=== PATIENT | male | born 1955 | race Caucasian/White ===

== ENCOUNTER → 2024-02-12 12:03 | Outpatient (REF) | payer OTHER, MEDICARE, BC, SELFPAY ==
[2024-02-12 12:56] LABS: % Basophils 0.8 % (0-2); % Eosinophils 2.4 % (0-6); % Immature Granulocytes 0.3 % (0-0.5); % Lymphocytes 12.2 % (20.5-51.1); % Monocytes 11.5 % (1.7-9.3); % Neutrophils 72.8 % (42.2-75.2); Absolute Basophils 0.1 10^3/uL (0-0.2); Absolute Eosinophils 0.1 10^3/uL (0-0.7); Absolute Lymphocytes 0.7 10^3/uL (1.2-3.4); Absolute Monocytes 0.7 10^3/uL (0.1-0.6); Absolute Neutrophils 4.3 10^3/uL (1.4-6.5); Hematocrit 28.6 % (39.0-52.0); Mean Corp Hgb Conc. 31.5 g/dL (33.0-37.0); Mean Corpuscular Hgb 27.3 pg (27.0-31.0); Mean Corpuscular Volume 86.7 fL (80.0-94.0); Nucleated Red Blood Cells % 0 % (-); Platelet Count 157 10^3/uL (130-400); White Blood Cell Count 5.9 10^3/uL (4.8-10.8)
[2024-02-12 13:00] LABS: ALT (SGPT) 13 U/L (0-50); AST (SGOT) 15 U/L (17-59); Albumin 3.6 g/dl (3.5-5.0); Alkaline Phosphatase 99 U/L (38-126); Blood Urea Nitrogen 29 mg/dl (9-20); Calcium 8.8 mg/dl (8.4-10.2); Carbon Dioxide 26 mmol/L (22-30); Chloride 101 mmol/L (98-107); Glucose 108 mg/dl (70-99); HDL Cholesterol 45 mg/dl; LDL Cholesterol, Calculated 86 mg/dl; Potassium 3.2 mmol/L (3.5-5.1); Sodium 135 mmol/L (135-145); Total Bilirubin 0.5 mg/dl (0.2-1.3); Total Cholesterol 145 mg/dl (50-199); Total Protein 5.8 g/dl (6.3-8.2); Triglyceride 70 mg/dl (10-149); Very Low Density Lipoprotein 14 mg/dl (0-30); eGFR 24.74
[2024-02-12 13:30] LABS: TSH 8.57 uIU/ml (0.47-4.68)
[2024-02-12 13:52] LABS: Glycohemoglobin (HgbA1c) 6.7 % (4.0-5.6)
== END ==
LOC: OLABN 12:03
PROVIDERS: ATTENDING PHYSICIAN Student in an Organized Health Care Education/Training Program
DX: I48.20 Chronic atrial fibrillation, unspecified (principal); N17.9 Acute kidney failure, unspecified; E03.9 Hypothyroidism, unspecified; E78.5 Hyperlipidemia, unspecified; E10.22 Type 1 diabetes mellitus with diabetic chronic kidney disease
CPT/HCPCS: 36415; 80053; 80061; 83036; 83735; 84443; 85025

== ENCOUNTER → 2024-02-19 00:30 | Outpatient (REF) | payer OTHER, MEDICARE, BC, SELFPAY ==
[2024-02-19 10:03] LABS: % Basophils 0.6 % (0-2); % Eosinophils 1.3 % (0-6); % Immature Granulocytes 0.3 % (0-0.5); % Lymphocytes 11.8 % (20.5-51.1); % Monocytes 8.1 % (1.7-9.3); % Neutrophils 77.9 % (42.2-75.2); Absolute Eosinophils 0.1 10^3/uL (0-0.7); Absolute Lymphocytes 0.7 10^3/uL (1.2-3.4); Absolute Monocytes 0.5 10^3/uL (0.1-0.6); Absolute Neutrophils 4.8 10^3/uL (1.4-6.5); Hematocrit 27.8 % (39.0-52.0); Hemoglobin 8.9 g/dL (13.0-18.0); Mean Corpuscular Hgb 27.1 pg (27.0-31.0); Mean Corpuscular Volume 84.5 fL (80.0-94.0); Mean Platelet Volume 11.2 fL (7.4-10.4); Nucleated Red Blood Cells % 0 % (-); Platelet Count 148 10^3/uL (130-400); Red Blood Cell Count 3.29 10^6/uL (4.70-6.10); Red Cell Dist. Width 16.7 % (11.5-14.5); White Blood Cell Count 6.2 10^3/uL (4.8-10.8)
[2024-02-19 10:38] LABS: Blood Urea Nitrogen 45 mg/dl (9-20); Calcium 9.2 mg/dl (8.4-10.2); Carbon Dioxide 28 mmol/L (22-30); Chloride 101 mmol/L (98-107); Glucose 109 mg/dl (70-99); Potassium 4.4 mmol/L (3.5-5.1); Sodium 136 mmol/L (135-145); eGFR 19.44
[2024-02-19 10:48] LABS: Urine Albumin 1+ (Neg - Trace); Urine Bilirubin Negative (Negative); Urine Character Clear (Clear); Urine Color Yellow; Urine Glucose Negative (Negative); Urine Ketone Negative (Negative); Urine Leukocyte Negative (Negative); Urine Nitrite Negative (Negative); Urine Occult Blood Negative (Negative); Urine Urobilinogen Negative (Neg - 1+); Urine pH 6.5 (5.0-9.0)
[2024-02-19 10:56] LABS: Free T4 2.13 ng/dl (0.78-2.19)
[2024-02-19 11:10] LABS: TSH 3.37 uIU/ml (0.47-4.68)
[2024-02-19 11:40] LABS: Urine Squamous Cell 0-2 /LPF (Few)
[2024-02-19 11:42] LABS: Urine Amorphous Seen; Urine Red Blood Cell 0-2 /HPF (0-2); Urine White Cell 0-2 /HPF (0-5)
== END ==
LOC: OLABN 00:30
PROVIDERS: ATTENDING PHYSICIAN Student in an Organized Health Care Education/Training Program
DX: N32.9 Bladder disorder, unspecified (principal); R82.90 Unspecified abnormal findings in urine; I48.19 Other persistent atrial fibrillation; E03.9 Hypothyroidism, unspecified; N18.4 Chronic kidney disease, stage 4 (severe)
CPT/HCPCS: 36415; 80048; 81003; 81015; 84439; 84443; 85025; 87077; 87086; 87186

== ENCOUNTER → 2024-02-25 12:16 | Outpatient (REF) | payer OTHER, MEDICARE, BC, SELFPAY ==
[2024-02-25 13:04] LABS: % Basophils 0.5 % (0-2); % Immature Granulocytes 0.3 % (0-0.5); % Lymphocytes 12.4 % (20.5-51.1); % Monocytes 10.2 % (1.7-9.3); % Neutrophils 74.6 % (42.2-75.2); Absolute Eosinophils 0.1 10^3/uL (0-0.7); Absolute Lymphocytes 0.8 10^3/uL (1.2-3.4); Absolute Monocytes 0.7 10^3/uL (0.1-0.6); Absolute Neutrophils 4.8 10^3/uL (1.4-6.5); Hemoglobin 9.2 g/dL (13.0-18.0); Mean Corp Hgb Conc. 31.7 g/dL (33.0-37.0); Mean Platelet Volume 11.5 fL (7.4-10.4); Nucleated Red Blood Cells % 0 % (-); Platelet Count 175 10^3/uL (130-400); Red Blood Cell Count 3.41 10^6/uL (4.70-6.10); Red Cell Dist. Width 17.2 % (11.5-14.5); White Blood Cell Count 6.4 10^3/uL (4.8-10.8)
[2024-02-25 13:34] LABS: Blood Urea Nitrogen 41 mg/dl (9-20); Carbon Dioxide 27 mmol/L (22-30); Chloride 99 mmol/L (98-107); Glucose 98 mg/dl (70-99); Potassium 4.6 mmol/L (3.5-5.1); Sodium 133 mmol/L (135-145)
[2024-02-25 13:44] LABS: NT-proBNP 15000 pg/ml
== END ==
LOC: OLABN 12:16
PROVIDERS: ATTENDING PHYSICIAN Student in an Organized Health Care Education/Training Program
DX: I48.19 Other persistent atrial fibrillation (principal); N18.4 Chronic kidney disease, stage 4 (severe); R60.0 Localized edema
CPT/HCPCS: 36415; 80048; 83880; 85025

== ENCOUNTER → 2024-03-12 10:37 | Outpatient (REF) | payer OTHER, MEDICARE, BC, SELFPAY ==
[2024-03-12 11:49] LABS: Blood Urea Nitrogen 47 mg/dl (9-20); Calcium 8.9 mg/dl (8.4-10.2); Carbon Dioxide 29 mmol/L (22-30); Chloride 100 mmol/L (98-107); Glucose 111 mg/dl (70-99); Potassium 4.3 mmol/L (3.5-5.1); Sodium 139 mmol/L (135-145); eGFR 20.18
== END ==
LOC: OLABN 10:37
PROVIDERS: ATTENDING PHYSICIAN Student in an Organized Health Care Education/Training Program
DX: N18.9 Chronic kidney disease, unspecified (principal)
CPT/HCPCS: 36415; 80048

== ENCOUNTER → 2024-03-19 09:59 | Outpatient (REF) | payer OTHER, MEDICARE, BC, SELFPAY ==
[2024-03-19 10:52] LABS: % Basophils 0.7 % (0-2); % Eosinophils 1.5 % (0-6); % Immature Granulocytes 0.3 % (0-0.5); % Lymphocytes 12.2 % (20.5-51.1); % Monocytes 8.4 % (1.7-9.3); % Neutrophils 76.9 % (42.2-75.2); Absolute Eosinophils 0.1 10^3/uL (0-0.7); Absolute Lymphocytes 0.7 10^3/uL (1.2-3.4); Absolute Monocytes 0.5 10^3/uL (0.1-0.6); Absolute Neutrophils 4.7 10^3/uL (1.4-6.5); Hematocrit 27.3 % (39.0-52.0); Hemoglobin 8.4 g/dL (13.0-18.0); Mean Corp Hgb Conc. 30.8 g/dL (33.0-37.0); Mean Corpuscular Hgb 26.5 pg (27.0-31.0); Mean Corpuscular Volume 86.1 fL (80.0-94.0); Mean Platelet Volume 11.3 fL (7.4-10.4); Nucleated Red Blood Cells % 0 % (-); Platelet Count 146 10^3/uL (130-400); Red Blood Cell Count 3.17 10^6/uL (4.70-6.10); Red Cell Dist. Width 16.5 % (11.5-14.5); White Blood Cell Count 6.1 10^3/uL (4.8-10.8)
[2024-03-19 11:30] LABS: ALT (SGPT) 14 U/L (0-50); AST (SGOT) 15 U/L (17-59); Albumin 3.6 g/dl (3.5-5.0); Alkaline Phosphatase 87 U/L (38-126); Blood Urea Nitrogen 49 mg/dl (9-20); Calcium 9.2 mg/dl (8.4-10.2); Carbon Dioxide 30 mmol/L (22-30); Chloride 99 mmol/L (98-107); Glucose 99 mg/dl (70-99); Magnesium 2.3 mg/dl (1.6-2.3); Potassium 4.2 mmol/L (3.5-5.1); Sodium 138 mmol/L (135-145); Total Protein 5.8 g/dl (6.3-8.2); eGFR 20.18
== END ==
LOC: OLABN 09:59
PROVIDERS: ATTENDING PHYSICIAN Student in an Organized Health Care Education/Training Program
DX: N18.4 Chronic kidney disease, stage 4 (severe) (principal)
CPT/HCPCS: 36415; 80053; 83735; 85025

== ENCOUNTER 2024-03-24 15:28 | Inpatient (IN) | payer MEDICARE, BC, SELFPAY ==
[2024-03-24 12:58] VITALS: BP 178/100
[2024-03-24 13:07] VITALS: BMI 36.5
[2024-03-24 13:24] LABS: % Eosinophils 1.1 % (0-6); % Immature Granulocytes 0.5 % (0-0.5); % Lymphocytes 8.4 % (20.5-51.1); % Monocytes 8.7 % (1.7-9.3); % Neutrophils 80.3 % (42.2-75.2); Absolute Basophils 0.1 10^3/uL (0-0.2); Absolute Eosinophils 0.1 10^3/uL (0-0.7); Absolute Lymphocytes 0.5 10^3/uL (1.2-3.4); Absolute Monocytes 0.5 10^3/uL (0.1-0.6); Hematocrit 28.2 % (39.0-52.0); Hemoglobin 8.8 g/dL (13.0-18.0); Mean Corp Hgb Conc. 31.2 g/dL (33.0-37.0); Mean Corpuscular Hgb 26.2 pg (27.0-31.0); Mean Corpuscular Volume 83.9 fL (80.0-94.0); Mean Platelet Volume 11.1 fL (7.4-10.4); Nucleated Red Blood Cells % 0 % (-); Platelet Count 154 10^3/uL (130-400); Red Blood Cell Count 3.36 10^6/uL (4.70-6.10); Red Cell Dist. Width 16.5 % (11.5-14.5); White Blood Cell Count 6.2 10^3/uL (4.8-10.8)
[2024-03-24 13:51] LABS: NT-proBNP 20700 pg/ml; Troponin I 0.013 ng/ml
[2024-03-24 14:00] VITALS: BP 162/92
[2024-03-24 14:01] LABS: ALT (SGPT) 13 U/L (0-50); AST (SGOT) 16 U/L (17-59); Albumin 3.9 g/dl (3.5-5.0); Alkaline Phosphatase 98 U/L (38-126); Blood Urea Nitrogen 45 mg/dl (9-20); Calcium 9.1 mg/dl (8.4-10.2); Carbon Dioxide 28 mmol/L (22-30); Chloride 99 mmol/L (98-107); Estimated Creatinine Clearance 34 ml/min; Glucose 127 mg/dl (70-99); Sodium 138 mmol/L (135-145); Total Protein 6.2 g/dl (6.3-8.2)
--- NOTE | 2024-03-24 14:07 | ED.GENMED ---
History of Present Illness
General
Chief Complaint: Breathing Problem
Source: patient, family, ambulance crew and [facility]p
Exam Limitations: none
Time Seen by Provider: 03/24/24 13:11
Nursing documentation reviewed up to this point in time: agreed with
History of Present Illness
History of Present Illness:
68-year-old male past medical history of A-fib currently with pacemaker also taking Eliquis, CHF diabetes hypothyroidism COPD presenting to the emergency department today with concerns of worsening shortness of breath over the past few days. Pulse
ox 86% with EMS on arrival to his nursing facility. Denies any specific chest pain has had increased swelling to his legs. Does take his Bumex.
Review of Systems
Review of Systems
Allergies reviewed?: Yes
All Other Systems: ROS reviewed and negative except as documented in HPI and ROS
Phy Exam
Physical Exam
Physical Exam:
GENERAL: Alert , in no apparent distress
EYE: pupils equal and reactive
NECK: Supple, no significant adenopathy.
ENT: o/p clr, mmm.
CARDIAC: Regular rate and rhythm .
LUNGS: Rales rhonchi diffusely
ABDOMEN: Soft, without focal tenderness, no r/g, no cvat
NEUROLOGICAL: Alert and oriented, no focal neuro deficits
SKIN: Warm and dry, skin intact.
MUSCULOSKELETAL: No edema, well perfused.
PSYCH: Normal and appropriate interaction.
Scores
Heart Failure Risk
Heart Failure Risk Score: Not Applicable
Course
Orders/Labs/Results
Orders:
Orders
03/24/24 12:57
Electrocardiogram (*1) Urgent
Reason for Study: Shortness of Breath
EKG- Treatment ONCE
03/24/24 13:11
CMP [Comprehensive Metabolic Panel] Urgent
03/24/24 13:12
BNP [NT-proBNP] Urgent
Complete Blood Count/With Diff Urgent
Troponin I Urgent
Chest X-ray Portable [CR Chest Portable - 1 View] Urgent
Comment:
Reason For Exam: hypoxemia sob
Reason Study Needs to be Portable: Patient Unstable
03/24/24 13:57
COVID-19 Antigen Urgent
Source: Nasal Swab
03/24/24 14:03
Bumetanide [Bumex] 2 mg IV NOW STA
Abnormal Lab Results
03/24/24 03/24/24
13:11 13:12
RBC 3.36 L 10^6/uL
(4.70-6.10)
Hgb 8.8 L g/dL
(13.0-18.0)
Hct 28.2 L %
(39.0-52.0)
MCH 26.2 L pg
(27.0-31.0)
MCHC 31.2 L g/dL
(33.0-37.0)
RDW 16.5 H %
(11.5-14.5)
MPV 11.1 H fL
(7.4-10.4)
Absolute Lymphs (auto) 0.5 L 10^3/uL
(1.2-3.4)
Neutrophils % 80.3 H %
(42.2-75.2)
Lymphocytes % 8.4 L %
(20.5-51.1)
BUN 45 H mg/dl
(9-20)
Creatinine 3.0 H mg/dL
(0.7-1.3)
Glucose 127 H mg/dl
(70-99)
AST 16 L U/L
(17-59)
Total Protein 6.2 L g/dl
(6.3-8.2)
03/24/24 13:12
03/24/24 13:11
Vital Signs
Initial and Last Documented VS:
Initial Vital Signs
Temp Pulse Resp BP Pulse Ox
98.4 F 68 18 178/100 85
03/24/24 12:58 03/24/24 12:58 03/24/24 12:58 03/24/24 12:58 03/24/24 12:58
Last Documented Vital Signs
Temp Pulse Resp BP Pulse Ox
98.4 F 64 22 178/100 95
03/24/24 12:58 03/24/24 13:30 03/24/24 13:30 03/24/24 12:58 03/24/24 13:30
MDM/Problems Addressed
MDM/Problems Addressed:
68-year-old male presenting to the emergency department with worsening shortness of breath over the past few days. Patient with increased swelling weight gain and history of CHF. Has rales and rhonchi on lung examination significantly elevated BNP
of over 20,000 and a chest x-ray showing significant pulmonary edema. Symptoms likely consistent with CHF. Patient was given dose of Bumex otherwise stable here plan to admit for further monitoring and assessment.
*Critical Care Note
Total Time (30-74mins, 75-104mins- exclusive of procedures): Not Applicable
ED Attending Note
-
Portions of this chart may have been created with voice recognition software.� Occasional wrong word or��sound alike� substitutions may have occurred due to the inherent limitations of voice recognition software.
Discharge Plan
Departure
Patient Disposition: Admit
Date of Disposition: 03/24/24
Time of Disposition: 14:23
Admit to: Telemetry
Admit to doctor: Wenceslao
Presentation/result/management discussed w/ accepting MD/DO: Hospitalist
Patient with high blood pressure during this ER visit?: No
Condition: Good
Covid-19: Not Applicable
Discharge Problem:
Acute exacerbation of CHF (congestive heart failure)
Prescriptions:
No Action
levothyroxine [Synthroid] 175 mcg Tablet
175 mcg PO DAILY
acetaminophen [Tylenol] 325 mg Tablet
650 mg PO Q4HPRN PRN (Reason: mild pain)
ipratropium-albuterol [DuoNeb] 0.5 mg-3 mg(2.5 mg base)/3 mL Solution For Nebulization
3 ml INHALATION R Q6HPRN PRN (Reason: sob)
bumetanide [Bumex] 2 mg Tablet
2 mg PO BID
trazodone 50 mg Tablet
50 mg PO HS
metoprolol tartrate [Lopressor] 100 mg Tablet
100 mg PO BID
amiodarone 200 mg Tablet
200 mg PO DAILY
isosorbide mononitrate [Imdur] 30 mg Tablet Extended Release 24 Hr
30 mg PO Q12H
dextromethorphan-guaifenesin [Tussin DM] 10-100 mg/5 mL Syrup
10 ml PO Q4HPRN PRN (Reason: cough)
aspirin 81 mg Tablet,Delayed Release (Dr/Ec)
81 mg PO DAILY
potassium chloride 20 mEq Tablet,Er Particles/Crystals
40 meq PO DAILY
sodium bicarbonate 650 mg Tablet
650 mg PO BID
bisacodyl [Dulcolax (bisacodyl)] 10 mg Suppository
10 mg ID [id number] PRN (Reason: if no bm aftr mom)
hydralazine 50 mg Tablet
50 mg PO BID
ezetimibe [Zetia] 10 mg Tablet
10 mg PO QPM
calcium carbonate-vitamin D3 [Calcium 500 + D] 500 mg-10 mcg (400 unit) Tablet
1 tab PO BID
lactulose 20 gram/30 mL Solution
20 g PO HSPRN PRN (Reason: constipation)
Eliquis 5 mg Tablet
5 mg PO BID
Referrals:
Mj Peck DO [Family Provider] -
Interventions
Interventions:
*Risk Screen - Suicide Last Done: 03/24/24 13:08
*General Assessment Last Done: 03/24/24 13:08
*Neglect/Abuse Screening Last Done: 03/24/24 13:08
ED- Fall Risk Assessment Last Done: 03/24/24 13:17
*ED COVID-19 Vaccine History Last Done: 03/24/24 13:08
ED- Cardiac Assessment Last Done: 03/24/24 13:16
ED- Pulmonary Assessment Last Done: 03/24/24 13:16
Discharge Date and Time
Print Language: AMERICAN
--- NOTE | 2024-03-24 14:14 | HPS.HSE ---
Addendum entered and electronically signed by Carlos Alberto Rodriguez MD 03/24/24 17:30:
Cardiology started bumex drip and ordered ABG. Low threshold for BIPAP.
Original Note:
Family Physician
-
Family Physician: Mj Peck DO
Chief Complaint
-
sob
History of Present Illness
68-year-old male past medical history of A-fib currently with pacemaker also taking Eliquis, CHF diabetes hypothyroidism COPD, chronic hypoxic respiratory failure uses 3-4liters at home presenting to the emergency department today with concerns of
worsening shortness of breath over the past few days. sob worse with exertion, stated orthopnea. stated 4-5weight gain i past 4-5 days. he was also noted worsening LE edema. stated runny nose congestion, cough for denied chest pain. today his pulse
ox drop to 86 on 3l. denied MENDOZA, dizzy or syncopal episode. denied abdominal pain,n,v,d. denied dysuria or hematuria.
noted elevated BNP. received Bumex in ER. admitting for further management.
Medical History
Past Medical History
Past Medical History: Reports Other
Additional Past Medical History:
COPD A-fib
Thrombophilia
Peripheral vascular disease
hypothyroidism
Diabetic nephropathy
Congestive heart failure
Lymphedema
Past Surgical History: Reports Other
Additional Past Surgical History:
Right shoulder surgery
Meniscus repair
Social History
Tobacco: Former Smoker
Alcohol: Former
Drug: None
Personal: Single
Living: Assisted Living
Family History
Family History: Not pertinent
Allergies / Home Medications
Allergies reflects when Allergies were last updated in [facility].
Home Medications with original date entered in [facility]
Allergy/Medication List:
Allergies
Allergy/AdvReac Type Severity Reaction Status Date / Time
cinnamon Allergy Anaphylaxis Verified 03/24/24 12:56
Home Medications
acetaminophen 325 mg tablet (Tylenol) 650 mg PO Q4HPRN PRN mild pain 03/24/24
amiodarone 200 mg tablet 200 mg PO DAILY 03/24/24
apixaban 5 mg tablet (Eliquis) 5 mg PO BID 03/24/24
aspirin 81 mg tablet,delayed release 81 mg PO DAILY 03/24/24
bisacodyl 10 mg rectal suppository (Dulcolax (bisacodyl)) 10 mg HI [id number] PRN if no bm aftr mom 03/24/24
bumetanide 2 mg tablet 2 mg PO BID 03/24/24
calcium carbonate 500 mg-vitamin D3 10 mcg (400 unit) tablet (Calcium 500 + D) 1 tab PO BID 03/24/24
dextromethorphan-guaifenesin 10 mg-100 mg/5 mL oral syrup (Tussin DM) 10 ml PO Q4HPRN PRN cough 03/24/24
ezetimibe 10 mg tablet (Zetia) 10 mg PO QPM 03/24/24
hydralazine 50 mg tablet 50 mg PO BID 03/24/24
ipratropium 0.5 mg-albuterol 3 mg (2.5 mg base)/3 mL nebulization soln 3 ml inhalation R Q6HPRN PRN sob 03/24/24
isosorbide mononitrate 30 mg tablet,extended release 24 hr 30 mg PO Q12H 03/24/24
lactulose 20 gram/30 mL oral solution 20 g PO HSPRN PRN constipation 03/24/24
levothyroxine 175 mcg tablet (Synthroid) 175 mcg PO DAILY 03/24/24
metoprolol tartrate 100 mg tablet (Lopressor) 100 mg PO BID 03/24/24
potassium chloride 20 mEq tablet,extended release(part/cryst) 40 meq PO DAILY 03/24/24
sodium bicarbonate 650 mg tablet 650 mg PO BID 03/24/24
trazodone 50 mg tablet 50 mg PO HS 03/24/24
Review of Systems
-
Constitutional: Reports Weight Gain
EENT: Reports Runny Nose
Respiratory: Reports No Symptoms, Cough and Trouble Breathing
Cardiac: Reports No Symptoms
Abdomen/GI: Reports No Symptoms
: Reports No Symptoms
Musculoskeletal: Reports Edema (b/l Le edema)
Skin: Reports Other (b/l LE wounds)
Neurological: Reports No Symptoms
Endocrine: Reports No Symptoms
Hematologic/Lymphatic: Reports No Symptoms
Psych: Reports No Symptoms
Physical Exam
Vital Signs
Vital Signs
Temp Pulse Resp BP Pulse Ox
98.4 F 64 22 178/100 95
03/24/24 12:58 03/24/24 13:30 03/24/24 13:30 03/24/24 12:58 03/24/24 13:30
Physical Exam
General: Well Developed, Well Nourished and No Apparent Distress
HEENT: NormoCephalic, Moist mucous membranes and Atraumatic
Respiratory: Crackles
Cardiac: S1/S2 and Regular Rhythm; No Murmur or Rub
GI: Soft, Non Tender, Non Distended and Normal Bowel Sounds; No Organomegaly
Rectal: Deferred by Provider
Musculoskeletal: No Clubbing, No Cyanosis and Other (b/l Le edema)
Skin: Rash and Other (b/l Le wound)
Neuro: AO x 3 and Nonfocal/grossly intact
Psych: Calm
Laboratory Results
-
03/24/24 13:12
03/24/24 13:11
Laboratory Results
Total Bilirubin 1.0 mg/dl (0.2-1.3) 03/24/24 13:11
AST 16 U/L (17-59) L 03/24/24 13:11
ALT 13 U/L (0-50) 03/24/24 13:11
Alkaline Phosphatase 98 U/L (38-126) 03/24/24 13:11
Troponin I 0.013 ng/ml 03/24/24 13:12
Data Reviewed
-
Lab Data: Labs Reviewed by me
Impression/Plan
-
# Acute on chronic hypoxic respiratory failure likely from CHF exacerbation
-BNP
-Chest x-ray pending
-Patient requiring 3 L of nasal cannula
-baseline uses 3-4l
-IV Bumex 3mg iv bid
-Continue supplemental oxygen to keep sat greater than 92
-Wean as tolerated
-Strict SELVIN
-Daily weight
-Fluid restriction
-Imdur continued
-Echo
-Cardiology consult
# Anemia of chronic disease
-Hemoglobin stable at 8.8 no active bleeding
-Continue to monitor
# Chronic kidney disease iv/Dm nephropathy
-Creatinine 3.0
-ctm
#hxt of lymphedema/LE wound
-wound care consulted
# Paroxysmal A-fib
#ICD/pacemaker
-EKG with paced rhythm
-Amiodarone and Eliquis continued
-Metoprolol continued
# Hypothyroidism
-Levothyroxine continued
#history of coronary artery disease
-History of coronary artery bypass graft
-Aspirin continued
# Hyperlipidemia
-Statin continued
# Essential hypertension
-Hydralazine continued with hold parameters
# History of COPD/chronic respiratory insufficiency
-Patient not in acute exacerbation
-Patient uses 3 to 4 L at baseline
-Continue supplemental oxygen to keep sat greater than 92
-Wean as tolerated
-Albuterol continued
# DVT prophylaxis
- Eliquis
# CODE STATUS full code
-
[2024-03-24 14:22] LABS: COVID-19 Antigen Negative (Negative)
[2024-03-24] MEDS: BUMEX 2 MG IV (14:26)
--- NOTE | 2024-03-24 14:59 | W.PN.UPDATE ---
Update Note
Progress Note Update
This is an addendum to the H&P written by Monet Carbajal on 03/24/2024. Patient seen and examined independently with [employer]. 68-year-old male past medical history of paroxysmal atrial fibrillation with pacemaker/ICD, CAD status post CABG, CHF, CKD 4, type 2
diabetes, hypothyroidism, COPD, hypoxemic respiratory failure on 3 L at baseline here for shortness of breath, orthopnea, intermittent chest pressure, increased lower extremity edema, weight gain 5 pounds, consistent with CHF exacerbation.
Cardiac BNP of 20,000. EKG shows ventricular paced rhythm. Chest x-ray showing widespread pulmonary edema. Will give 4 mg IV Bumex, followed by 3 mg IV twice daily, check echo, cardiology consulted. Patient follows cardiology at [facility]. Renal function is at baseline. Continue to monitor with diuresis.
[2024-03-24 15:00] VITALS: BP 174/94
[2024-03-24 15:16] LABS: Iron 41 ug/dl (49-181)
[2024-03-24 15:25] LABS: Percent Saturation 12 % (20-50); Total Iron Binding Capacity 340 ug/dl (261-462)
--- NOTE | 2024-03-24 15:59 | CON.CAR ---
Consultation
Consultation Request
Date/Time Consultation Requested: 03/24/2024
Date/Time Consultation Performed: 03/24/2024
Requesting Provider: Monet HUANG
Performing Provider: Dr rGay
Reason for Consultation: CHF
Medical History
-
Chief Complaint: Shortness of breath
History of Present Illness:
Mr Valentin Magaña is a 68-year-old male with PMH of A-fib on Eliquis, CHF, CAD s/p CABG hypothyroidism, COPD, hypoxemic respiratory failure on 3 L of oxygen at baseline, CKD stage IV who presents to the emergency department today complaining of shortness
of breath. Patient notes over the past few days has been experiencing shortness of breath at rest and with exertion. Patient states he has gained 5 pounds, with increased lower extremity swelling. Patient reports he has been compliant with his
Bumex. On presentation to the ED, his blood pressure elevated at 178/100, pulse 64, afebrile with O2 sat 94% on 4 L of oxygen. Labs showed proBNP 20,700, normal troponin level, creatinine at 3.0
Past Medical History
Past Medical History: Other (Atrial fibrillation on Eliquis, COPD, PVD, hypothyroidism, diabetic nephropathy, CHF, lymphedema)
Past Surgical History: Other (Right shoulder rotator cuff surgery)
Social History
Tobacco: Former Smoker
Alcohol: None
Drug: None
Living: Assisted Living
Family History
Family History: Reviewed & Not Pertinent
Allergies / Home Medications
Allergy/AdvReac Type Severity Reaction Status Date / Time
cinnamon Allergy Anaphylaxis Verified 03/24/24 12:56
�Medication �Instructions �Recorded �Confirmed �Type
acetaminophen 325 mg tablet 650 mg PO Q4HPRN PRN mild pain 03/24/24 03/24/24 History
(Tylenol)
amiodarone 200 mg tablet 200 mg PO DAILY Arrhythmia 03/24/24 03/24/24 History
apixaban 5 mg tablet (Eliquis) 5 mg PO BID Blood Clot 03/24/24 03/24/24 History
Prevention/Tx
aspirin 81 mg tablet,delayed 81 mg PO DAILY Blood Clot 03/24/24 03/24/24 History
release Prevention/Tx
bisacodyl 10 mg rectal suppository 10 mg HI [id number] PRN if no bm aftr 03/24/24 03/24/24 History
(Dulcolax (bisacodyl)) mom
bumetanide 2 mg tablet 2 mg PO BID Fluid 03/24/24 03/24/24 History
Retention/Swelling
calcium carbonate 500 mg-vitamin 1 tab PO BID Supplement 03/24/24 03/24/24 History
D3 10 mcg (400 unit) tablet
(Calcium 500 + D)
dextromethorphan-guaifenesin 10 10 ml PO Q4HPRN PRN cough 03/24/24 03/24/24 History
mg-100 mg/5 mL oral syrup (Tussin
DM)
ezetimibe 10 mg tablet (Zetia) 10 mg PO QPM High Cholesterol 03/24/24 03/24/24 History
hydralazine 50 mg tablet 50 mg PO BID Blood Pressure 03/24/24 03/24/24 History
ipratropium 0.5 mg-albuterol 3 mg 3 ml inhalation R Q6HPRN PRN sob 03/24/24 03/24/24 History
(2.5 mg base)/3 mL nebulization
soln
isosorbide mononitrate 30 mg 30 mg PO Q12H Heart 03/24/24 03/24/24 History
tablet,extended release 24 hr Disease/Condition
lactulose 20 gram/30 mL oral 20 g PO HSPRN PRN constipation 03/24/24 03/24/24 History
solution
levothyroxine 175 mcg tablet 175 mcg PO DAILY Thyroid 03/24/24 03/24/24 History
(Synthroid)
metoprolol tartrate 100 mg tablet 100 mg PO BID Blood Pressure 03/24/24 03/24/24 History
(Lopressor)
potassium chloride 20 mEq 40 meq PO DAILY Electrolyte 03/24/24 03/24/24 History
tablet,extended release(part/cryst) Repletion
sodium bicarbonate 650 mg tablet 650 mg PO BID Supplement 03/24/24 03/24/24 History
trazodone 50 mg tablet 50 mg PO HS sleep 03/24/24 03/24/24 History
Review of Systems
-
All other systems: Negative unless noted (Except as documented In HPI)
Physical Exam
Vital Signs
Temp Pulse Resp BP Pulse Ox
98.4 F 64 22 178/100 95
03/24/24 12:58 03/24/24 13:30 03/24/24 13:30 03/24/24 12:58 03/24/24 13:30
Lab Results
03/24/24 13:12
03/24/24 13:11
Troponin I 0.013 ng/ml 03/24/24 13:12
Nvr-A-Xuqjpzzzzkw Pept 57586 pg/ml 03/24/24 13:12
Physical Exam
General: Respiratory Distress (MODERATE respiratory distress) and Other (Lethargic)
Respiratory: Crackles and Rhonchi
Cardiac: S1/S2 and Regular Rhythm; Negative Murmur
Musculoskeletal: Edema (2+ bilateral lower extremity)
Neuro: Nonfocal/Grossly Intact
Psych: Calm
Impression / Plan
-
Impression/plan
Acute HFrEF
Acute on chronic hypoxic respiratory insufficiency Secondary to above
-Chest x-ray on presentation with widespread pulmonary edema.
-Given IV Bumex 4 mg in ED, Switch to Bumex drip 1mg/hr
-Monitor creatinine with diuresis, monitor on telemetry
-Check echocardiogram
-Daily weights, I's and O's, restrict fluids
-currently on 4 L of oxygen, Continue supplemental oxygen.
-Low Threshold for BiPAP
-Check ABGs
Paroxysmal atrial fibrillation
-EKG on Presentation with ventricular paced rhythm
-Continue on amiodarone, continue Anticoagulation with Eliquis.
Hypertension
- on Hydralazine, Lopressor
-Will continue to titrate medications as indicated
CAD s/p CABG
-Continue Aspirin
Anemia of chronic disease
CKD stage IV
Hypothyroidism
Hyperlipidemia
[2024-03-24 16:12] LABS: Ferritin 51.8 ng/ml (17.9-464.0)
[2024-03-24 16:27] VITALS: BP 160/98
[2024-03-24 16:28] VITALS: BMI 36.3
[2024-03-24 16:43] LABS: Folate 8.9 ng/ml (2.76-20)
[2024-03-24 16:52] VITALS: BMI 36.3
[2024-03-24 17:53] LABS: B.E. 0.5 mmol/L; HCO3 24.5 mmol/L (21-28); O2 Saturation % 97.8 % (94-98); PCO2 36 mmHg (35-48); PO2 77 mmHg (83-108); pH 7.44 (7.35-7.45)
[2024-03-24] MEDS: BUMEX 50 IV (18:12)
[2024-03-24] MEDS: ZETIA 10 MG PO (18:14)
[2024-03-24 20:28] VITALS: BMI 35.4
[2024-03-24 20:29] VITALS: BP 188/116
[2024-03-24] MEDS: IMDUR (EXTENDED RELEASE) 30 MG PO (21:00)
[2024-03-24] MEDS: APRESOLINE 50 MG PO (21:00)
[2024-03-24] MEDS: ELIQUIS 5 MG PO (21:00)
[2024-03-24] MEDS: LOPRESSOR 100 MG PO (21:01)
[2024-03-24] MEDS: SODIUM BICARBONATE 650 MG PO (21:01)
[2024-03-24] MEDS: DESYREL PO (21:37)
[2024-03-24 22:00] VITALS: BP 146/93
--- NOTE | 2024-03-24 23:37 | PTCARENOTE ---
Caring for patient overnight. Pt transferred to IMU around 2014. AAox3, pleasant, denies any pain. SOB at rest and exertion. Orthopneic. Pt feels like he can breath better when he is OOB in the chair sitting up. Offered to put bed in chair position
but pt refused. Pt up to 8LMF, now down to 5L. Will continue to wean as possible. BP stable. Bumex drip continues. Skin assessed with another RN. Dressings changed on BLE. Wound consult in. Desenex ordered for abdomen & groin. NO other issues at
this time. Will monitor.
[2024-03-25] VITALS (17 sets, daily range): BP systolic 131–176; BP diastolic 75–113; PULSE 60; O2SAT 95–99; BMI 35.1
[2024-03-25] MEDS: SYNTHROID 175 MCG PO (06:09)
[2024-03-25] MEDS: BUMEX 50 IV ×2 (06:10→13:58)
[2024-03-25 06:54] LABS: Hematocrit 29.1 % (39.0-52.0); Hemoglobin 9.1 g/dL (13.0-18.0); Mean Corp Hgb Conc. 31.3 g/dL (33.0-37.0); Mean Corpuscular Hgb 27.2 pg (27.0-31.0); Mean Corpuscular Volume 87.1 fL (80.0-94.0); Platelet Count 169 10^3/uL (130-400); Red Blood Cell Count 3.34 10^6/uL (4.70-6.10); Red Cell Dist. Width 16.4 % (11.5-14.5); White Blood Cell Count 6.7 10^3/uL (4.8-10.8)
[2024-03-25 07:23] LABS: ALT (SGPT) 13 U/L (0-50); AST (SGOT) 20 U/L (17-59); Albumin 3.8 g/dl (3.5-5.0); Alkaline Phosphatase 85 U/L (38-126); Blood Urea Nitrogen 44 mg/dl (9-20); Calcium 8.8 mg/dl (8.4-10.2); Carbon Dioxide 28 mmol/L (22-30); Chloride 99 mmol/L (98-107); Direct Bilirubin 0.3 mg/dl (0.0-0.4); Estimated Creatinine Clearance 35 ml/min; Glucose 111 mg/dl (70-99); Magnesium 2.1 mg/dl (1.6-2.3); Potassium 3.8 mmol/L (3.5-5.1); Sodium 141 mmol/L (135-145); Total Bilirubin 1.3 mg/dl (0.2-1.3); Total Cholesterol 138 mg/dl (50-199); Total Protein 6.2 g/dl (6.3-8.2); Triglyceride 69 mg/dl (10-149); Very Low Density Lipoprotein 13 mg/dl (0-30); eGFR 22.71
[2024-03-25 07:32] LABS: HDL Cholesterol 48 mg/dl; LDL Cholesterol, Calculated 77 mg/dl
[2024-03-25 07:37] LABS: TSH Reflex To Free T4 3.11 uIU/ml (0.47-4.68)
--- NOTE | 2024-03-25 08:28 | W.PN.HOSP.TC ---
Today's Communication/Plan
-
see bold
Assessment / Plan
Assessment / Plan
HPI: 68-year-old male past medical history of A-fib currently with pacemaker also taking Eliquis, CHF diabetes hypothyroidism COPD, chronic hypoxic respiratory failure uses 3-4liters at home presenting to the emergency department today with
concerns of worsening shortness of breath over the past few days. sob worse with exertion, stated orthopnea. stated 4-5weight gain i past 4-5 days. he was also noted worsening LE edema. stated runny nose congestion, cough for denied chest pain.
today his pulse ox drop to 86 on 3l. denied MENDOZA, dizzy or syncopal episode. denied abdominal pain,n,v,d. denied dysuria or hematuria.
#Acute on chronic hypoxic respiratory failure
#Acute heart failure with reduced ejection fraction
Echo EF 40-45%, mod MR, pulm HTN, left pleural effusion
Obtain records from [facility]
Appreciate cardiology input, continue aggressive diuresis with Bumex drip
Currently on 8 L of oxygen, wean as tolerated. He wears 3�4 at baseline
#QT prolongation
Repeat EKG
#Chronic lower extremity wounds
#Lower extremity lymphedema
Wound care
#Paroxysmal atrial fibrillation
EKG shows paced rhythm
Continue metoprolol, amiodarone, Eliquis
#Coronary artery disease status post CABG
Continue aspirin, Zetia, Imdur
#Benign essential hypertension
Continue hydralazine, metoprolol
#Stage IV CKD
Monitor creatinine
#Anemia of chronic disease
Monitor hemoglobin
#Hypothyroidism
Continue levothyroxine
#COPD
#Chronic hypoxic respiratory failure
Uses 3-4 L at baseline
Needs PFTs outpatient
Duonebs prn
DVT prophylaxis�Eliquis
Full code
Dispo - from [facility]
Total time spent to see the patient on the floor, examine the patient, review data and lab results, discuss treatment plan with patient, nursing staff around 51 minutes.
Physical Exam
General: Morbidly obese, no acute distress
HEENT: Normocephalic, Atraumatic, EOMI, MMM
Respiratory: Bibasilar crackles
Cardiac: Normal S1/S2, Regular Rate and Rhythm
GI: Soft, Nontender, Nondistended, Normal Bowel Sounds
Extremities: No Clubbing, Cyanosis
Severe bilateral lower extremity lymphedema with scattered wounds
Neuro: Nonfocal/Grossly Intact
Psych: Calm, Cooperative
Anticipated Discharge: > 48 hours
Subjective/Interval History
-
Date of Service: March 25, 2024
Patient continues to be short of breath. He cannot lie flat. He can only sleep sitting up. No fever, no vomiting.
Objective Data
-
Labs:
Laboratory Results
03/25/24
06:31
WBC 6.7
Hgb 9.1 L
Hct 29.1 L
Plt Count 169
Sodium 141
Potassium 3.8
Chloride 99
Carbon Dioxide 28
BUN 44 H
Creatinine 2.9 H
Glucose 111 H
Calcium 8.8
Total Bilirubin 1.3
AST 20
ALT 13
Alkaline Phosphatase 85
Vital Signs:
Vital Signs
Temp Pulse Resp BP Pulse Ox
98.3 F 60 15 144/86 100
03/25/24 03:45 03/25/24 04:00 03/25/24 04:00 03/25/24 04:00 03/25/24 04:00
I&O
03/24/24 03/25/24 03/26/24
06:59 06:59 06:59
Output Total 400 / 400
Balance -400 / -400
[2024-03-25] MEDS: IMDUR (EXTENDED RELEASE) 30 MG PO ×2 (09:00→19:49)
[2024-03-25] MEDS: ELIQUIS 5 MG PO ×2 (09:00→19:49)
[2024-03-25] MEDS: KCL 40 MEQ PO (09:00)
[2024-03-25] MEDS: DESENEX/MITRAZOL/ZEASORB 1 APPLIC TOPICAL ×2 (09:00→19:49)
[2024-03-25] MEDS: ASPIR LOW (ENTERIC COATED) 81 MG PO (09:00)
[2024-03-25] MEDS: LOPRESSOR 100 MG PO ×2 (09:00→19:50)
[2024-03-25] MEDS: APRESOLINE 50 MG PO ×2 (09:00→19:50)
[2024-03-25] MEDS: PACERONE 200 MG PO (09:00)
[2024-03-25] MEDS: SODIUM BICARBONATE 650 MG PO ×2 (09:00→19:48)
--- NOTE | 2024-03-25 09:22 | W.PN.CD ---
Today's Communication / Plan
-
Continue Bumetanide drip.
Echo pending
Monitor weight
Wean O2 as tolerated, back to baseline of 4l
Impression / Plan
-
Impression/plan
Saw patient at bedside today 03/25. Improved breathing. Non-lethargic. Denies CP. AOX3.
Acute HFrEF
Acute on chronic hypoxic respiratory insufficiency Secondary to above
-Chest x-ray on presentation with widespread pulmonary edema.
-Bumetanide drip at 1 mg/h yesterday. Continue with current regimen.
-Monitor creatinine with diuresis, monitor on telemetry
-Check echocardiogram, pENDING
-Daily weights, I's and O's,
-currently on 6L of oxygen, Continue supplemental oxygen. Wean O2 to baseline of 3L.
-Will request for records from [facility].
Paroxysmal atrial fibrillation
-EKG on Presentation with ventricular paced rhythm
-Continue on amiodarone, continue Anticoagulation with Eliquis.
-Future plans to d/c amiodarone after diuresis complete.
-PFTs as an outpatient due to retirement amiodarone use.
Hypertension
- on Hydralazine, Lopressor
-Will continue to titrate medications as indicated
CAD s/p CABG
-Continue Aspirin
Anemia of chronic disease
CKD stage IV
Hypothyroidism
Hyperlipidemia
Physical Exam
Vital Signs/Labs
Vital Signs
Temp Pulse Resp BP Pulse Ox
98.3 F 60 15 158/98 100
03/25/24 03:45 03/25/24 04:00 03/25/24 04:00 03/25/24 09:00 03/25/24 04:00
03/24/24 03/25/24 03/26/24
06:59 06:59 06:59
Actual Weight 127.3 kg
03/25/24 06:31
03/25/24 06:31
Magnesium 2.1 mg/dl (1.6-2.3) 03/25/24 06:31
Triglycerides 69 mg/dl (10-149) 03/25/24 06:31
LDL Cholesterol, Calc 77 mg/dl 03/25/24 06:31
VLDL Cholesterol, Calc 13 mg/dl (0-30) 03/25/24 06:31
HDL Cholesterol 48 mg/dl 03/25/24 06:31
03/24/24
13:12
Mvv-L-Bwvifckovsm Pept
LAB Results
03/24/24
13:12
Troponin I 0.013
Physical Exam
Constitutional: No acute distress
Cardiovascular: S1S2 is normal and Murmur/rub/gallop absent
Respiratory: Crackles Present (mild-moderate) and Other (bibasilar rales b/l)
Neuro/Psych: Alert, Oriented and AO x 3
Data Reviewed
-
Date of Service: March 25, 2024
--- NOTE | 2024-03-25 09:35 | CM ---
Patient from [facility] with Dx HF. O2 5L. Receiving IV Bumex. PT & OT Evals pending.
Spoke with Anneliese, [facility];
the patient resides there in LTC and is on an SD bed hold.
He has been A/O, requires some assist with ADLs and ambulates independently using his RW.
The patient's is also a patient at their SNF in LTC.
Pharmacy - [facility]
The phone for nurse report [phone], fax [phone].
Plan speak with patient about return to [facility].
Plan [facility] when medically ready.
--- NOTE | 2024-03-25 14:10 | CARDSERVLU ---
Echocardiogram with [facility] completed after protocol screening completed. Allergies verified.
Patent IV site: __L AC___
IV site flushed with 0.9% NaCl pre and post administration.
Diluted bolus method utilized to enhance visualization of ventricular ndiaye.
Total volume given: __2.5__ mL
Patient tolerated all procedures well without complications.
--- NOTE | 2024-03-25 16:00 | WOUNDNOTE ---
LEFT 5th TOE
--- NOTE | 2024-03-25 16:00 | WOUNDNOTE ---
LEFT ANTERIOR LEG
--- NOTE | 2024-03-25 16:00 | WOUNDNOTE ---
LEFT MEDIAL ANKLE
--- NOTE | 2024-03-25 16:00 | WOUNDNOTE ---
RIGHT 5 th toe
--- NOTE | 2024-03-25 16:05 | WOUNDNOTE ---
[facility] RN note: Patient admitted with SOB
See H&P for complete history.
PMH: COPD, diabetes, CHF, chronic respiratory failure, diabetic neuropathy,
Wound Location and type/assessment: Patient admitted with LE edema and multiple LE wounds. + audible pedal pulses bilaterally. Left medial ankle and left anterior lower leg with necrotic appearing wounds. Bilateral 5 th toe stage 2 PI likely from
pressure on toes from wheelchair, per patient report. Right LE with open blisters and pink wound bed. Patient reports that he has had wounds for 'awhile' and was receiving home care prior to becoming a resident at [facility]. Patient reports that he cannot
tolerate laying or sitting in bed due to SOB and prefers to sit on side of bed. At [facility] he was trying to stay in bed to avoid keeping his legs dependent, but reports this made breathing worse. Sacrum and heels intact.
Appetite: Good
Pressure redistribution devices in place: Centrella Max Air
Plan: TT pictures to hospitalist. Plan is to try compression with ROSS (patient does not wear compression at [facility] and is agreeable to trying ROSS wraps). Santyl can be applied to necrotic areas on medial left ankle and anterior left leg. All other
wound care completed as ordered. DENNYS Coronel updated. Care plan and discharge updated. Will follow as needed.
Note to case management of equipment requested for discharge:
Recommend follow up at wound care center upon discharge.
[2024-03-25] MEDS: ZETIA 10 MG PO (17:34)
[2024-03-25] MEDS: SANTYL OINTMENT 1 APPLIC TOPICAL (19:49)
--- NOTE | 2024-03-25 20:00 | PTCARENOTE ---
Patient received sitting on side of bed, AAOX3, offers no complaints. 100% AV paced on monitor, blood pressure as documented. +2 edema to bilateral lower extremities. ROSS wraps maintained. Lungs diminished, fine crackles left base, pulse ox 98%
on 5L MFNC. Abdomen round obese with positive bowel sounds. Voiding clear yellow urine. #20 g in LAC flushed and patent. #22 g in left hand with Bumex gtt infusing at 1 mg/hr. Call de la garza within reach
[2024-03-25] MEDS: DESYREL PO (22:06)
[2024-03-26] VITALS (13 sets, daily range): BP systolic 96–159; BP diastolic 54–118; BMI 35.1
[2024-03-26] MEDS: BUMEX 50 IV ×3 (04:39→23:54)
[2024-03-26] MEDS: SYNTHROID 175 MCG PO (04:39)
[2024-03-26 04:42] LABS: Hematocrit 27.9 % (39.0-52.0); Hemoglobin 8.6 g/dL (13.0-18.0); Mean Corp Hgb Conc. 30.8 g/dL (33.0-37.0); Mean Corpuscular Hgb 26.9 pg (27.0-31.0); Mean Corpuscular Volume 87.2 fL (80.0-94.0); Mean Platelet Volume 10.9 fL (7.4-10.4); Platelet Count 164 10^3/uL (130-400); Red Cell Dist. Width 16.2 % (11.5-14.5); White Blood Cell Count 6.7 10^3/uL (4.8-10.8)
[2024-03-26 05:00] LABS: Blood Urea Nitrogen 42 mg/dl (9-20); Calcium 8.3 mg/dl (8.4-10.2); Carbon Dioxide 31 mmol/L (22-30); Chloride 100 mmol/L (98-107); Estimated Creatinine Clearance 35 ml/min; Glucose 94 mg/dl (70-99); Sodium 142 mmol/L (135-145); eGFR 22.71
[2024-03-26] MEDS: IMDUR (EXTENDED RELEASE) 30 MG PO ×2 (08:04→19:57)
[2024-03-26] MEDS: ASPIR LOW (ENTERIC COATED) 81 MG PO (08:04)
[2024-03-26] MEDS: SANTYL OINTMENT 1 APPLIC TOPICAL ×2 (08:04→19:58)
[2024-03-26] MEDS: APRESOLINE 50 MG PO ×2 (08:05→19:57)
[2024-03-26] MEDS: KCL 40 MEQ PO (08:07)
[2024-03-26] MEDS: LOPRESSOR 100 MG PO ×2 (08:07→19:58)
[2024-03-26] MEDS: PACERONE 200 MG PO (08:07)
[2024-03-26] MEDS: SODIUM BICARBONATE 650 MG PO ×2 (08:07→19:57)
[2024-03-26] MEDS: DESENEX/MITRAZOL/ZEASORB 1 APPLIC TOPICAL ×2 (08:09→19:58)
[2024-03-26] MEDS: ELIQUIS 5 MG PO ×2 (08:13→19:57)
--- NOTE | 2024-03-26 08:59 | PTCARENOTE ---
Pt AAOx3 now OOB to chair, ate breakfast . 5l Midflow Pt av paced. Bumex at 1mg/hr. 1200 fr in progress. 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
--- NOTE | 2024-03-26 09:22 | W.PN.CD ---
Today's Communication / Plan
-
Cont bumex gtt
Pricing of ARNI and SGLt2i requested
K>4 Mag > 2
Impression / Plan
-
Impression/plan
Acute HFrEF EF 40-45%
Acute on chronic hypoxic respiratory insufficiency Secondary to above
-Chest x-ray on presentation with widespread pulmonary edema.
-Bumetanide drip at 1 mg/h yesterday. Continue gtt
- K>4 Mag > 2
-Monitor creatinine with diuresis, monitor on telemetry
-Daily weights, I's and O's,
-currently on 6L of oxygen, Continue supplemental oxygen. Wean O2 to baseline of 3L.
-Will request for records from [facility].
- pricing of Entresto and SGLT2i's requested
Paroxysmal atrial fibrillation
-EKG on Presentation with ventricular paced rhythm
-Continue on amiodarone, continue Anticoagulation with Eliquis.
-Future plans to d/c amiodarone after diuresis complete.
-PFTs as an outpatient due to [facility]cf amiodarone use.
Hypertension
- on Hydralazine, Lopressor
-Will continue to titrate medications as indicaion
CAD s/p CABG
-Continue Aspirin
Anemia of chronic disease
CKD stage IV
Hypothyroidism
Hyperlipidemia
Subjective: Improved breathing still volume overloaded
TTE: CONCLUSIONS
Mild left ventricular systolic dysfunction with an EF of 40 to 45% by Charles's
biplane. Global hypokinesis.
Moderate mitral regurgitation.
Trace aortic regurgitation.
Moderate pulmonary hypertension.
Dilated aortic root and ascending aorta. Both 4.1 cm.
Left pleural effusion.
No prior study available for comparison.
Physical Exam
Vital Signs/Labs
Vital Signs
Temp Pulse Resp BP Pulse Ox
97.8 F 60 15 115/63 96
03/26/24 08:00 03/26/24 08:07 03/26/24 08:05 03/26/24 08:07 03/26/24 08:53
03/25/24 03/26/24 03/27/24
06:59 06:59 06:59
Actual Weight 280 lb 10.375 oz 280 lb 10.375 oz
03/26/24 04:24
03/26/24 04:24
Magnesium 2.1 mg/dl (1.6-2.3) 03/25/24 06:31
Triglycerides 69 mg/dl (10-149) 03/25/24 06:31
LDL Cholesterol, Calc 77 mg/dl 03/25/24 06:31
VLDL Cholesterol, Calc 13 mg/dl (0-30) 03/25/24 06:31
HDL Cholesterol 48 mg/dl 03/25/24 06:31
03/24/24
13:12
Fqp-C-Vgjgpnumcnj Pept
LAB Results
03/24/24
13:12
Troponin I 0.013
Physical Exam
Constitutional: No acute distress and Comfortable
Cardiovascular: Rhythm & rate is regular and Pedal edema present
Respiratory: Respiratory effort normal
GI: Soft
Neuro/Psych: AO x 3
Data Reviewed
-
Date of Service: March 26, 2024
EKG: Tracing Personally Visualized and interpreted (paced)
Echo: Report Reviewed by me
Labs: Labs Reviewed by me
--- NOTE | 2024-03-26 09:28 | W.PN.HOSP.TC ---
Today's Communication/Plan
-
see bold
Assessment / Plan
Assessment / Plan
HPI: 68-year-old male past medical history of A-fib currently with pacemaker also taking Eliquis, CHF diabetes hypothyroidism COPD, chronic hypoxic respiratory failure uses 3-4liters at home presenting to the emergency department today with
concerns of worsening shortness of breath over the past few days. sob worse with exertion, stated orthopnea. stated 4-5weight gain i past 4-5 days. he was also noted worsening LE edema. stated runny nose congestion, cough for denied chest pain.
today his pulse ox drop to 86 on 3l. denied MENDOZA, dizzy or syncopal episode. denied abdominal pain,n,v,d. denied dysuria or hematuria.
#Acute on chronic hypoxic respiratory failure
#Acute heart failure with reduced ejection fraction
Echo EF 40-45%, mod MR, pulm HTN, left pleural effusion
Obtain records from [facility]
Appreciate cardiology input, continue aggressive diuresis with Bumex drip
Currently on 5 L of oxygen, down from 8, wean as tolerated. He wears 3�4 at baseline
#QT prolongation
Repeat EKG
#Chronic lower extremity wounds
#Lower extremity lymphedema
Wound care
#Paroxysmal atrial fibrillation
EKG shows paced rhythm
Continue metoprolol, amiodarone, Eliquis
Cardiology plans to stop amiodarone after diuresis is complete
#Diffuse myalgias, arthralgias
Check uric acid, ESR, CRP
Patient declines pain medications
#Coronary artery disease status post CABG
Continue aspirin, Zetia, Imdur
#Benign essential hypertension
Continue hydralazine, metoprolol
#Stage IV CKD
Monitor creatinine
#Anemia of chronic disease
Monitor hemoglobin
#Hypothyroidism
Continue levothyroxine
#COPD
#Chronic hypoxic respiratory failure
Uses 3-4 L at baseline
Needs PFTs outpatient
Duonebs prn
DVT prophylaxis�Eliquis
Full code
Dispo - from [facility]
Total time spent to see the patient on the floor, examine the patient, review data and lab results, discuss treatment plan with patient, nursing staff around 50 minutes.
Physical Exam
General: Morbidly obese, no acute distress
HEENT: Normocephalic, Atraumatic, EOMI, MMM
Respiratory: Bibasilar crackles
Cardiac: Normal S1/S2, Regular Rate and Rhythm
GI: Soft, Nontender, Nondistended, Normal Bowel Sounds
Extremities: No Clubbing, Cyanosis
Severe bilateral lower extremity lymphedema with scattered wounds
Neuro: Nonfocal/Grossly Intact
Psych: Calm, Cooperative
Anticipated Discharge: > 48 hours
Subjective/Interval History
-
Date of Service: March 26, 2024
Still SOB. C/o diffuse joint pain/stiffness. No fever, no vomiting.
Objective Data
-
Labs:
Laboratory Results
03/26/24
04:24
WBC 6.7
Hgb 8.6 L
Hct 27.9 L
Plt Count 164
Sodium 142
Potassium 4.0
Chloride 100
Carbon Dioxide 31 H
BUN 42 H
Creatinine 2.9 H
Glucose 94
Calcium 8.3 L
Vital Signs:
Vital Signs
Temp Pulse Resp BP Pulse Ox
97.8 F 60 15 115/63 96
03/26/24 08:00 03/26/24 08:07 03/26/24 08:05 03/26/24 08:07 03/26/24 08:53
I&O
03/25/24 03/26/24 03/27/24
06:59 06:59 06:59
Intake Total 288 / 288
Output Total 3275 / 3275
Balance -2987 / -2987
--- NOTE | 2024-03-26 10:00 | CM ---
Patient from [facility] with Dx HF. O2 5L midflow. Receiving IV Bumex. PT Eval; transfer training. OT recommends skilled rehab.
CM Consult: Sharif check Farxiga, Jardiance, Entresto.
Spoke with Anneliese, Admissions and SNF pharmacist Kaela at [facility];
patient has an [employer] Rx Plan.
Farxiga 5mg PO daily - cost $290 for 14 day supply
Jardiance (preferred under his plan) $304.81 for 14 day supply
Entresto $173.18 fpr 14 day supply
Unclear if patient met deductible.
[facility] SN[facility]: The phone for nurse report [phone], fax [phone].
Plan [facility] when medically ready.
--- NOTE | 2024-03-26 13:46 | PTCARENOTE ---
Pt remains OOB awaiting lunch
[2024-03-26 15:03] LABS: Uric Acid 10.6 mg/dl (3.5-8.5)
[2024-03-26] MEDS: ZETIA 10 MG PO (17:03)
[2024-03-26] MEDS: DELTASONE 40 MG PO (17:56)
[2024-03-26] MEDS: DESYREL 50 MG PO (22:27)
[2024-03-27] VITALS (13 sets, daily range): BP systolic 125–161; BP diastolic 60–104; PULSE 60; O2SAT 96; BMI 35.0
[2024-03-27 05:02] LABS: Hematocrit 24.5 % (39.0-52.0); Hemoglobin 7.7 g/dL (13.0-18.0); Mean Corp Hgb Conc. 31.4 g/dL (33.0-37.0); Mean Corpuscular Hgb 27.1 pg (27.0-31.0); Mean Corpuscular Volume 86.3 fL (80.0-94.0); Mean Platelet Volume 10.4 fL (7.4-10.4); Platelet Count 139 10^3/uL (130-400); Red Blood Cell Count 2.84 10^6/uL (4.70-6.10); Red Cell Dist. Width 16.1 % (11.5-14.5); White Blood Cell Count 4.7 10^3/uL (4.8-10.8)
[2024-03-27] MEDS: SYNTHROID 175 MCG PO (05:09)
--- NOTE | 2024-03-27 05:16 | PTCARENOTE ---
No acute events overnight. Remains on bumex gtt. Satting in the high 90s on 4 liters NC.
[2024-03-27 05:26] LABS: Blood Urea Nitrogen 40 mg/dl (9-20); Calcium 8.2 mg/dl (8.4-10.2); Carbon Dioxide 29 mmol/L (22-30); Chloride 98 mmol/L (98-107); Estimated Creatinine Clearance 37 ml/min; Glucose 184 mg/dl (70-99); Magnesium 1.8 mg/dl (1.6-2.3); Potassium 4.3 mmol/L (3.5-5.1); Sodium 137 mmol/L (135-145); eGFR 24.74
[2024-03-27 07:26] LABS: Erythrocyte Sed Rate 36 mm/hour (0-20)
--- NOTE | 2024-03-27 07:32 | W.PN.CD ---
Today's Communication / Plan
-
Review records.
Continue diuresis.
Impression / Plan
-
Impression/Plan: 68 y/o male with CAD s/p CABG and remote PCI, ICMO s/p BEHAVIORAL HEALTH CARE MANAGER-D, PAF, CKD4 admitted with acute on chronic decompensated HFrEF.
#Acute on chronic HFrEF
-LVEF 40-45%.
-Patient reports 22+lb weight gain at his facility. Weight is down 5.4 kg from admission.
-Continue bumetanide gtt.
-Replace electrolytes as indicated.
-Continue GDMT with metoprolol, hydralazine + isosorbide mononitrate. Renal function will likely limit SGLT2i, ARNi/ACEI/ARB and ARM.
#Primary pulmonary disease/COPD
-Chronic.
-Continue albuterol/ipratropium.
-He will need PFT's this admit and surveillance due to his ongoing amiodarone use.
#Paroxysmal atrial fibrillation
-Currently ventricular paced rhythm.
-Continue on amiodarone, continue anticoagulation with apixaban.
-Rate/rhythm control with amiodarone/metoprolol. S/P BEHAVIORAL HEALTH CARE MANAGER-D.
-CHADS2-Vasc = 4 (CHF, HTN, Age x1, vascular disease).
-Therapeutic anticoagulation with apixaban.
#Hypertension
-Chronic, mildly elevated.
-Continue hydralazine, isosorbide mononitrate, metoprolol.
#CAD
-Chronic, stable.
-S/P prior CABG/PCI, unknown anatomy.
-Continue aspirin, high dose, high potency statin.
#Anemia
-Likely due to CKD and chronic disease.
-Monitor.
#CKD stage IV
-Chronic.
-Creatinine improving with bumetanide gtt.
#Hypothyroidism
#Hyperlipidemia
Subjective/Interval History:
No acute events.
Subjectively improving breathing.
Weight is down 5.4 kg from admission.
DATA:
TTE, 03/26/2024:
CONCLUSIONS
Mild left ventricular systolic dysfunction with an EF of 40 to 45% by Charles's
biplane. Global hypokinesis.
Moderate mitral regurgitation.
Trace aortic regurgitation.
Moderate pulmonary hypertension.
Dilated aortic root and ascending aorta. Both 4.1 cm.
Left pleural effusion.
No prior study available for comparison.
Physical Exam
Vital Signs/Labs
Vital Signs
Temp Pulse Resp BP Pulse Ox
36.4 C 60 21 143/87 97
03/27/24 07:00 03/27/24 06:00 03/27/24 04:00 03/27/24 06:00 03/27/24 06:00
03/25/24 03/26/24 03/27/24
11:59 11:59 11:59
Actual Weight 127.3 kg 127.3 kg 127.148 kg
03/27/24 04:52
03/27/24 04:52
Magnesium 1.8 mg/dl (1.6-2.3) 03/27/24 04:52
Triglycerides 69 mg/dl (10-149) 03/25/24 06:31
LDL Cholesterol, Calc 77 mg/dl 03/25/24 06:31
VLDL Cholesterol, Calc 13 mg/dl (0-30) 03/25/24 06:31
HDL Cholesterol 48 mg/dl 03/25/24 06:31
03/24/24
13:12
Dfw-A-Fpjwbkfzgwn Pept [id number]
LAB Results
03/24/24
13:12
Troponin I 0.013
Physical Exam
Constitutional: No acute distress and Comfortable
EENT: Anicteric and Moist mucous membranes
Cardiovascular: Rhythm & rate is regular, JVD pressure is normal, Pedal edema present, S1S2 is normal and Murmur/rub/gallop absent
Respiratory: Respiratory effort normal, Wheeze Absent, Rhonchi Absent and Crackles Present (Bilateral bases - improved from prior.)
GI: Soft, Distention absent, Flat, Non tender and Normal bowel sounds
Neuro/Psych: AO x 3
Data Reviewed
-
Date of Service: March 27, 2024
Medical Decision Making: Reviewed Test Results, Independent Historian Assessment and Test Interpretation
EKG: Tracing Personally Visualized and interpreted and Report Reviewed by me
Echo: Report Reviewed by me
X-Ray/CT/US/MRI/NUC/PET: Image Personally Visualized and interpreted and Report Reviewed by me
Medical Tests (PFT, Pathology etc): Report Reviewed by me
Labs: Labs Reviewed by me
Old Records: Reviewed
[2024-03-27] MEDS: LOPRESSOR 100 MG PO ×2 (08:03→20:04)
[2024-03-27] MEDS: PACERONE 200 MG PO (08:03)
[2024-03-27] MEDS: ASPIR LOW (ENTERIC COATED) 81 MG PO (08:04)
[2024-03-27] MEDS: ELIQUIS 5 MG PO ×2 (08:04→20:04)
[2024-03-27] MEDS: IMDUR (EXTENDED RELEASE) 30 MG PO ×2 (08:04→20:04)
[2024-03-27] MEDS: APRESOLINE 50 MG PO ×2 (08:04→20:04)
[2024-03-27] MEDS: DELTASONE 40 MG PO (08:04)
[2024-03-27] MEDS: KCL 40 MEQ PO (08:04)
[2024-03-27] MEDS: SODIUM BICARBONATE 650 MG PO ×2 (08:04→20:04)
[2024-03-27] MEDS: DESENEX/MITRAZOL/ZEASORB 1 APPLIC TOPICAL ×2 (08:05→20:04)
[2024-03-27] MEDS: SANTYL OINTMENT 1 APPLIC TOPICAL ×2 (08:05→20:04)
[2024-03-27] MEDS: BUMEX 50 IV (08:05)
--- NOTE | 2024-03-27 08:23 | PTCARENOTE ---
Pt AAOx3 on 5l O2, Bumex gtt at 1mghr. Pt states hes not as stiff and sore in his muscles today. Pt sits on the side of the bed.
--- NOTE | 2024-03-27 09:11 | W.PN.HOSP.TC ---
Today's Communication/Plan
-
see bold
Assessment / Plan
Assessment / Plan
HPI: 68-year-old male past medical history of A-fib currently with pacemaker also taking Eliquis, CHF diabetes hypothyroidism COPD, chronic hypoxic respiratory failure uses 3-4liters at home presenting to the emergency department today with
concerns of worsening shortness of breath over the past few days. sob worse with exertion, stated orthopnea. stated 4-5weight gain i past 4-5 days. he was also noted worsening LE edema. stated runny nose congestion, cough for denied chest pain.
today his pulse ox drop to 86 on 3l. denied MENDOZA, dizzy or syncopal episode. denied abdominal pain,n,v,d. denied dysuria or hematuria.
#Acute on chronic hypoxic respiratory failure
#Acute heart failure with reduced ejection fraction
Echo EF 40-45%, mod MR, pulm HTN, left pleural effusion
Obtain records from [facility]
Appreciate cardiology input, continue aggressive diuresis with Bumex drip
Currently on 4 L of oxygen, down from 8, wean as tolerated. He wears 3�4 at baseline
#QT prolongation
Repeat EKG
#Chronic lower extremity wounds
#Lower extremity lymphedema
Wound care
#Paroxysmal atrial fibrillation
EKG shows paced rhythm
Continue metoprolol, amiodarone, Eliquis
Cardiology plans to stop amiodarone after diuresis is complete
#Diffuse myalgias, arthralgias
#Possible gout
Uric acid elevated
Started on prednisone for 5 days
#Coronary artery disease status post CABG
Continue aspirin, Zetia, Imdur
#Benign essential hypertension
Continue hydralazine, metoprolol
#Stage IV CKD
Monitor creatinine
#Anemia of chronic disease
Monitor hemoglobin
#Hypothyroidism
Continue levothyroxine
#COPD
#Chronic hypoxic respiratory failure
Uses 3-4 L at baseline
Needs PFTs outpatient
Duonebs prn
#Bilateral 5th toe stage 2 PI, POA
Wound care
DVT prophylaxis�Eliquis
Full code
Dispo - from [facility]
Updated family at bedside 03/27
Total time spent to see the patient on the floor, examine the patient, review data and lab results, discuss treatment plan with patient, nursing staff around 51 minutes.
Physical Exam
General: Morbidly obese, no acute distress
HEENT: Normocephalic, Atraumatic, EOMI, MMM
Respiratory: Bibasilar crackles
Cardiac: Normal S1/S2, Regular Rate and Rhythm
GI: Soft, Nontender, Nondistended, Normal Bowel Sounds
Extremities: No Clubbing, Cyanosis
Severe bilateral lower extremity lymphedema with scattered wounds
Neuro: Nonfocal/Grossly Intact
Psych: Calm, Cooperative
Derm: Bilateral 5th toe stage 2 PI
Anticipated Discharge: 24 - 48 hours
Subjective/Interval History
-
Date of Service: March 27, 2024
Patient reports that his breathing and his joint pain is mildly improved. No fever, no vomiting.
Objective Data
-
Labs:
Laboratory Results
03/27/24
04:52
WBC 4.7 L
Hgb 7.7 L
Hct 24.5 L
Plt Count 139
Sodium 137
Potassium 4.3
Chloride 98
Carbon Dioxide 29
BUN 40 H
Creatinine 2.7 H
Glucose 184 H
Calcium 8.2 L
Vital Signs:
Vital Signs
Temp Pulse Resp BP Pulse Ox
97.6 F 62 13 132/74 97
03/27/24 07:00 03/27/24 08:03 03/27/24 08:00 03/27/24 08:03 03/27/24 06:00
I&O
03/26/24 03/27/24 03/28/24
06:59 06:59 06:59
Intake Total 288 / 288 240 / 240
Output Total 3275 / 3275 1925 / 1925 375 / 375
Balance -2987 / -2987 -1685 / -1685 -375 / -375
--- NOTE | 2024-03-27 12:07 | PN.CDI ---
CDI
- -
CDI:
Physician Documentation Request
Admit Date: 03/24/24 15:28
Dear Doctor Do,
03/25 WOCN note states 'bilateral 5 th toe stage 2 PI...'
Physician documentation of the type and location of wounds is required for compliant documentation. Based on the above clinical findings and your assessment, please provide the following in your progress note:
1. Location of the ulcer/wound, including laterality.
2. Type (etiology) of ulcer/wound:
- Diabetic ulcer
- Arterial (ischemic) ulcer
- Traumatic wound
- Venous stasis ulcer
- Pressure (decubitus) ulcer
- Non-healing surgical wound
- Other
- Unable to determine
Use of terms such as suspected, likely, concern for, or probable (associated with a specific diagnosis that is being evaluated, monitored, or treated as if it exists) are acceptable and can be coded in the inpatient setting, when documented at the
time of discharge.
Thank you,
Joanne Rowe RN, BSN
CDI Specialist
tiger text
Please use your independent medical judgment in providing your response.
*Source: National Pressure Ulcer Advisory Panel (NPUAP)
[2024-03-27] MEDS: ZETIA 10 MG PO (17:41)
[2024-03-27] MEDS: DESYREL 50 MG PO (22:34)
[2024-03-28] VITALS (9 sets, daily range): BP systolic 135–176; BP diastolic 75–99; BMI 34.9
[2024-03-28] MEDS: BUMEX 50 IV ×2 (01:33→10:56)
[2024-03-28 04:58] LABS: Hematocrit 26.1 % (39.0-52.0); Hemoglobin 8.2 g/dL (13.0-18.0); Mean Corp Hgb Conc. 31.4 g/dL (33.0-37.0); Mean Corpuscular Volume 85.9 fL (80.0-94.0); Mean Platelet Volume 11.6 fL (7.4-10.4); Platelet Count 168 10^3/uL (130-400); Red Blood Cell Count 3.04 10^6/uL (4.70-6.10); Red Cell Dist. Width 16.1 % (11.5-14.5); White Blood Cell Count 7.4 10^3/uL (4.8-10.8)
[2024-03-28] MEDS: SYNTHROID 175 MCG PO (05:12)
[2024-03-28 05:13] LABS: Blood Urea Nitrogen 45 mg/dl (9-20); Calcium 8.7 mg/dl (8.4-10.2); Carbon Dioxide 29 mmol/L (22-30); Chloride 96 mmol/L (98-107); Estimated Creatinine Clearance 36 ml/min; Glucose 167 mg/dl (70-99); Potassium 4.1 mmol/L (3.5-5.1); Sodium 136 mmol/L (135-145); eGFR 23.68
--- NOTE | 2024-03-28 05:47 | PTCARENOTE ---
No acute events overnight. Remains on bumex gtt and 4 liters NC.
[2024-03-28] MEDS: LOPRESSOR 100 MG PO ×2 (08:20→20:56)
[2024-03-28] MEDS: APRESOLINE 50 MG PO ×3 (08:20→20:57)
[2024-03-28] MEDS: PACERONE 200 MG PO (08:20)
[2024-03-28] MEDS: DELTASONE 40 MG PO (08:20)
[2024-03-28] MEDS: ELIQUIS 5 MG PO ×2 (08:20→20:56)
[2024-03-28] MEDS: KCL 40 MEQ PO (08:20)
[2024-03-28] MEDS: ASPIR LOW (ENTERIC COATED) 81 MG PO (08:21)
[2024-03-28] MEDS: SODIUM BICARBONATE 650 MG PO ×2 (08:21→20:56)
[2024-03-28] MEDS: SANTYL OINTMENT 1 APPLIC TOPICAL ×2 (08:21→20:57)
[2024-03-28] MEDS: IMDUR (EXTENDED RELEASE) 30 MG PO ×2 (08:22→20:56)
[2024-03-28] MEDS: DESENEX/MITRAZOL/ZEASORB 1 APPLIC TOPICAL ×2 (08:22→20:57)
--- NOTE | 2024-03-28 09:26 | W.PN.HOSP.TC ---
Today's Communication/Plan
-
see bold
Assessment / Plan
Assessment / Plan
HPI: 68-year-old male past medical history of A-fib currently with pacemaker also taking Eliquis, CHF diabetes hypothyroidism COPD, chronic hypoxic respiratory failure uses 3-4liters at home presenting to the emergency department today with
concerns of worsening shortness of breath over the past few days. sob worse with exertion, stated orthopnea. stated 4-5weight gain i past 4-5 days. he was also noted worsening LE edema. stated runny nose congestion, cough for denied chest pain.
today his pulse ox drop to 86 on 3l. denied MENDOZA, dizzy or syncopal episode. denied abdominal pain,n,v,d. denied dysuria or hematuria.
#Acute on chronic hypoxic respiratory failure
#Acute heart failure with reduced ejection fraction
Echo EF 40-45%, mod MR, pulm HTN, left pleural effusion
Obtain records from [facility]
Appreciate cardiology input, continue aggressive diuresis with Bumex drip
Currently on 3 L of oxygen, down from 8, wean as tolerated. He wears 3�4 at baseline
#QT prolongation
Cardiology plans to stop amiodarone after diuresis is complete
#Chronic lower extremity wounds
#Lower extremity lymphedema
Wound care
#Paroxysmal atrial fibrillation
EKG shows paced rhythm
Continue metoprolol, amiodarone, Eliquis
Cardiology plans to stop amiodarone after diuresis is complete
#Diffuse myalgias, arthralgias
#Possible gout
Uric acid elevated
Started on prednisone for 5 days
#Coronary artery disease status post CABG
Continue aspirin, Zetia, Imdur
#Benign essential hypertension
Continue hydralazine, metoprolol
#Stage IV CKD
Monitor creatinine
#Anemia of chronic disease
Monitor hemoglobin
#Hypothyroidism
Continue levothyroxine
#COPD
#Chronic hypoxic respiratory failure
Uses 3-4 L at baseline
Needs PFTs outpatient
Duonebs prn
#Bilateral 5th toe stage 2 PI, POA
Wound care
DVT prophylaxis�Eliquis
Full code
Dispo - from [facility]
Updated family at bedside 03/27
Total time spent to see the patient on the floor, examine the patient, review data and lab results, discuss treatment plan with patient, nursing staff around 41 minutes.
Physical Exam
General: Morbidly obese, no acute distress
HEENT: Normocephalic, Atraumatic, EOMI, MMM
Respiratory: Bibasilar crackles
Cardiac: Normal S1/S2, Regular Rate and Rhythm
GI: Soft, Nontender, Nondistended, Normal Bowel Sounds
Extremities: No Clubbing, Cyanosis
Severe bilateral lower extremity lymphedema with scattered wounds
Neuro: Nonfocal/Grossly Intact
Psych: Calm, Cooperative
Derm: Bilateral 5th toe stage 2 PI
Anticipated Discharge: > 48 hours
Subjective/Interval History
-
Date of Service: March 28, 2024
Breathing improved since admission, but still short of breath. Continues to have diffuse joint pain, and hypersensitivity. No fever, no vomiting.
Objective Data
-
Labs:
Laboratory Results
03/28/24
04:40
WBC 7.4
Hgb 8.2 L
Hct 26.1 L
Plt Count 168 D
Sodium 136
Potassium 4.1
Chloride 96 L
Carbon Dioxide 29
BUN 45 H
Creatinine 2.8 H
Glucose 167 H
Calcium 8.7
Vital Signs:
Vital Signs
Temp Pulse Resp BP Pulse Ox
97.8 F 60 15 152/87 100
03/28/24 07:15 03/28/24 08:00 03/28/24 08:00 03/28/24 06:11 03/28/24 08:00
I&O
03/27/24 03/28/24 03/29/24
06:59 06:59 06:59
Intake Total 240 / 240 1248 / 1248
Output Total 5 / 192 2650 / 2650
Balance -1685 / -1685 -1402 / -1402
--- NOTE | 2024-03-28 12:30 | W.PN.CD ---
Addendum entered and electronically signed by Annelise Rueda MD 03/28/24 16:59:
I saw and examined the patient.
The [facility] [employer] [employer]'s note was reviewed and I agree with the note.
Comment: Feeling better at rest but still cannot lie flat and feels short of breath bending over. Putting up nicely to Bumex drip. On exam he has regular rhythm no murmur rubs or gallops were appreciated, lungs are clear to auscultation, he has 2+
pitting edema with Randall wraps in place. JVP is also elevated about 14 cm of H2O. Will continue with Bumex drip. Remaining problems as below.
Original Note:
Today's Communication / Plan
-
-continue IV bumex with monitoring labs, weights, I/O's
Impression / Plan
-
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
#Acute on chronic HFrEF, severe exacerbation (requiring hospitalization and IV diuretic drip_
-LVEF 40-45%.
-Patient reports 22+lb weight gain at his facility. Weight is down 5.7 kg from admission.
-Continue bumetanide gtt, which requires intensive monitoring
-Replace electrolytes as indicated.
-Continue GDMT with metoprolol, hydralazine + isosorbide mononitrate. Renal function will likely limit SGLT2i, ARNi/ACEI/ARB and MRA.
#Primary pulmonary disease/COPD
-Chronic.
-Continue albuterol/ipratropium.
-He will need PFT's for surveillance due to his ongoing amiodarone use.
#Paroxysmal atrial fibrillation
-Currently ventricular paced rhythm.
-Rate/rhythm control with amiodarone/metoprolol. S/P FRAMING MILL OPERATOR-D.
-CHADS2-Vasc = 4 (CHF, HTN, Age x1, vascular disease).
-Continue on amiodarone, continue anticoagulation with apixaban.
#Hypertension
-Chronic, mildly elevated.
-Continue hydralazine, isosorbide mononitrate, metoprolol.
-monitor with diuresis
#CAD
-Chronic, stable.
-S/P prior CABG/PCI, unknown anatomy.
-Continue aspirin, high dose, high potency statin.
#Anemia
-Likely due to CKD and chronic disease.
-Monitor.
#CKD stage IV
-Chronic.
-monitor on bumetanide gtt.
#Hypothyroidism
#Hyperlipidemia
Subjective/Interval History:
Feeling a little better overall
wishes he wasn't on heart failure diet, but understands why he is
DATA:
TTE, 03/26/2024:
CONCLUSIONS
Mild left ventricular systolic dysfunction with an EF of 40 to 45% by Charles's
biplane. Global hypokinesis.
Moderate mitral regurgitation.
Trace aortic regurgitation.
Moderate pulmonary hypertension.
Dilated aortic root and ascending aorta. Both 4.1 cm.
Left pleural effusion.
No prior study available for comparison.
Physical Exam
Vital Signs/Labs
Vital Signs
Temp Pulse Resp BP Pulse Ox
97.9 F 60 15 152/87 100
03/28/24 11:20 03/28/24 08:00 03/28/24 08:00 03/28/24 06:11 03/28/24 08:00
03/27/24 03/28/24 03/29/24
06:59 06:59 06:59
Actual Weight 127.148 kg 126.8 kg
03/28/24 04:40
03/28/24 04:40
Magnesium 2.0 mg/dl (1.6-2.3) 03/28/24 04:40
Triglycerides 69 mg/dl (10-149) 03/25/24 06:31
LDL Cholesterol, Calc 77 mg/dl 03/25/24 06:31
VLDL Cholesterol, Calc 13 mg/dl (0-30) 03/25/24 06:31
HDL Cholesterol 48 mg/dl 03/25/24 06:31
03/24/24
13:12
Sbc-P-Cmqfzsnzzhw Pept
Physical Exam
Constitutional: No acute distress
EENT: Anicteric
Cardiovascular: Rhythm & rate is regular and Pedal edema present
Respiratory: Respiratory effort normal and Other (rales b/l bases)
Neuro/Psych: Alert and Oriented
Data Reviewed
-
Date of Service: March 28, 2024
EKG: Other (AV paced)
[2024-03-28] MEDS: ZETIA 10 MG PO (16:24)
--- NOTE | 2024-03-28 18:00 | PTCARENOTE ---
Ox3, denies pain. Tele shows 100% AV pacing, O2 prn- removes/ applies on own as he needs it. L base crackles noted. Compression wraps applied this am. Sits on side of the bed most of the day- encouraged leg elevation- declined. Voids in urinal-
see I/o. Remains on IV Bumex gtt.
[2024-03-28] MEDS: DESYREL 50 MG PO (20:57)
[2024-03-29] VITALS (14 sets, daily range): BP systolic 120–160; BP diastolic 67–98; PULSE 62–85; O2SAT 90–94; BMI 33.0; BMI 34.3
[2024-03-29 03:16] LABS: Hemoglobin 7.9 g/dL (13.0-18.0); Mean Corp Hgb Conc. 31.6 g/dL (33.0-37.0); Mean Corpuscular Hgb 25.9 pg (27.0-31.0); Mean Platelet Volume 10.4 fL (7.4-10.4); Platelet Count 166 10^3/uL (130-400); Red Blood Cell Count 3.05 10^6/uL (4.70-6.10); Red Cell Dist. Width 16.3 % (11.5-14.5); White Blood Cell Count 8.4 10^3/uL (4.8-10.8)
[2024-03-29 03:29] LABS: Blood Urea Nitrogen 51 mg/dl (9-20); Calcium 8.4 mg/dl (8.4-10.2); Carbon Dioxide 31 mmol/L (22-30); Chloride 95 mmol/L (98-107); Estimated Creatinine Clearance 34 ml/min; Glucose 186 mg/dl (70-99); Potassium 4.1 mmol/L (3.5-5.1); Sodium 137 mmol/L (135-145); eGFR 22.71
--- NOTE | 2024-03-29 04:51 | PTCARENOTE ---
No acute events overnight. Remains on bumex gtt.
[2024-03-29] MEDS: BUMEX 50 IV ×2 (05:42→18:44)
[2024-03-29] MEDS: SYNTHROID 175 MCG PO (05:43)
[2024-03-29] MEDS: PACERONE 200 MG PO (08:46)
[2024-03-29] MEDS: IMDUR (EXTENDED RELEASE) 30 MG PO ×2 (08:46→21:17)
[2024-03-29] MEDS: KCL 40 MEQ PO (08:46)
[2024-03-29] MEDS: DELTASONE 40 MG PO (08:46)
[2024-03-29] MEDS: LOPRESSOR 100 MG PO ×2 (08:47→21:18)
[2024-03-29] MEDS: APRESOLINE 50 MG PO ×3 (08:47→21:18)
[2024-03-29] MEDS: ASPIR LOW (ENTERIC COATED) 81 MG PO (08:47)
[2024-03-29] MEDS: ELIQUIS 5 MG PO ×2 (08:47→21:17)
[2024-03-29] MEDS: DESENEX/MITRAZOL/ZEASORB 1 APPLIC TOPICAL ×2 (08:47→21:21)
[2024-03-29] MEDS: SANTYL OINTMENT 1 APPLIC TOPICAL ×2 (08:47→21:19)
[2024-03-29] MEDS: SODIUM BICARBONATE 650 MG PO ×2 (08:47→21:19)
--- NOTE | 2024-03-29 08:58 | W.PN.HOSP.TC ---
Today's Communication/Plan
-
Humidify oxygen
Bactroban to the nares
Bumex drip
Assessment / Plan
Assessment / Plan
HPI: 68-year-old male past medical history of A-fib currently with pacemaker also taking Eliquis, CHF diabetes hypothyroidism COPD, chronic hypoxic respiratory failure uses 3-4liters at home presenting to the emergency department today with
concerns of worsening shortness of breath over the past few days. sob worse with exertion, stated orthopnea. stated 4-5weight gain i past 4-5 days. he was also noted worsening LE edema. stated runny nose congestion, cough for denied chest pain.
today his pulse ox drop to 86 on 3l. denied MENDOZA, dizzy or syncopal episode. denied abdominal pain,n,v,d. denied dysuria or hematuria.
#Acute on chronic hypoxic respiratory failure
#Acute heart failure with reduced ejection fraction
Echo EF 40-45%, mod MR, pulm HTN, left pleural effusion
Appreciate cardiology input, continue aggressive diuresis with Bumex drip
Currently on 3-4 L of oxygen, down from 8, wean as tolerated. He wears 3�4 at baseline
GDMT with metoprolol, hydralazine, Imdur
#QT prolongation
Avoid QT prolonging drugs
#Chronic lower extremity wounds
#Lower extremity lymphedema
Wound care
#Paroxysmal atrial fibrillation
EKG shows paced rhythm
Continue metoprolol, amiodarone, Eliquis
#Diffuse myalgias, arthralgias
#Possible gout
Uric acid elevated
Started on prednisone for 5 days, last dose 03/30
#Coronary artery disease status post CABG
Continue aspirin, Zetia, Imdur
#Benign essential hypertension
Continue hydralazine, metoprolol
#Stage IV CKD
Monitor creatinine
#Anemia of chronic disease
Monitor hemoglobin
#Hypothyroidism
Continue levothyroxine
#COPD
#Chronic hypoxic respiratory failure
Uses 3-4 L at baseline
Needs PFTs outpatient
Duonebs prn
#Bilateral 5th toe stage 2 PI, POA
Wound care
DVT prophylaxis�Eliquis
Full code
Dispo - from [facility]
Updated family at bedside 03/27
Total time spent to see the patient on the floor, examine the patient, review data and lab results, discuss treatment plan with patient, nursing staff around 51 minutes.
Physical Exam
General: Morbidly obese, no acute distress
HEENT: Normocephalic, Atraumatic, EOMI, MMM
Respiratory: Bibasilar crackles
Cardiac: Normal S1/S2, Regular Rate and Rhythm
GI: Soft, Nontender, Nondistended, Normal Bowel Sounds
Extremities: No Clubbing, Cyanosis
Severe bilateral lower extremity lymphedema with scattered wounds
Neuro: Nonfocal/Grossly Intact
Psych: Calm, Cooperative
Derm: Bilateral 5th toe stage 2 PI
Anticipated Discharge: 24 - 48 hours
Subjective/Interval History
-
Date of Service: March 29, 2024
Reports epistaxis. Continues to be short of breath with diffuse joint pains. No fever, no vomiting.
Objective Data
-
Labs:
Laboratory Results
03/29/24
03:09
WBC 8.4
Hgb 7.9 L
Hct 25.0 L
Plt Count 166
Sodium 137
Potassium 4.1
Chloride 95 L
Carbon Dioxide 31 H
BUN 51 H
Creatinine 2.9 H
Glucose 186 H
Calcium 8.4
Vital Signs:
Vital Signs
Temp Pulse Resp BP Pulse Ox
97.6 F 63 17 121/67 100
03/29/24 07:32 03/29/24 08:00 03/29/24 08:00 03/29/24 08:00 03/29/24 08:46
I&O
03/28/24 03/29/24 03/30/24
06:59 06:59 06:59
Intake Total 1248 / 1248 1296 / 1296
Output Total 2650 / 2650 2825 / 2825 400 / 400
Balance -1402 / -1402 -1529 / -1529 -400 / -400
--- NOTE | 2024-03-29 09:31 | W.PN.CD ---
Today's Communication / Plan
-
-Continue bumetanide gtt, which requires intensive monitoring
Impression / Plan
-
Impression/Plan: 68 y/o male with CAD s/p CABG and remote PCI, ICMO s/p MOTOR POOL CLERK-D, PAF, CKD4 admitted with acute on chronic decompensated HFrEF.
#Acute on chronic HFrEF, severe exacerbation (requiring hospitalization and IV diuretic drip_
-LVEF 40-45%.
-Patient reports 22+lb weight gain at his facility.
-weight contniues to improve.
-Continue bumetanide gtt, which requires intensive monitoring
-Replace electrolytes as indicated.
-Continue GDMT with metoprolol, hydralazine + isosorbide mononitrate. Renal function will likely limit SGLT2i, ARNi/ACEI/ARB and MRA.
#Primary pulmonary disease/COPD
-Chronic.
-Continue albuterol/ipratropium.
-He will need PFT's for surveillance due to his ongoing amiodarone use.
#Paroxysmal atrial fibrillation
-Currently ventricular paced rhythm.
-Rate/rhythm control with amiodarone/metoprolol. S/P MOTOR [employer]OL [employer]ERK-D.
-CHADS2-Vasc = 4 (CHF, HTN, Age x1, vascular disease).
-Continue on amiodarone, continue anticoagulation with apixaban.
#Hypertension
-Chronic, mildly elevated.
-Continue hydralazine, isosorbide mononitrate, metoprolol.
-monitor with diuresis
#CAD
-Chronic, stable.
-S/P prior CABG/PCI, unknown anatomy.
-Continue aspirin, high dose, high potency statin.
#Anemia
-Likely due to CKD and chronic disease.
-Monitor.
#CKD stage IV
-Chronic.
-monitor on bumetanide gtt.
#Hypothyroidism
#Hyperlipidemia
Subjective/Interval History:
Feeling a little better overall, still cannot lie flat, he is feeling better
DATA:
TTE, 03/26/2024:
CONCLUSIONS
Mild left ventricular systolic dysfunction with an EF of 40 to 45% by Charles's
biplane. Global hypokinesis.
Moderate mitral regurgitation.
Trace aortic regurgitation.
Moderate pulmonary hypertension.
Dilated aortic root and ascending aorta. Both 4.1 cm.
Left pleural effusion.
No prior study available for comparison.
Physical Exam
Vital Signs/Labs
Vital Signs
Temp Pulse Resp BP Pulse Ox
97.6 F 63 17 121/67 100
03/29/24 07:32 03/29/24 08:00 03/29/24 08:00 03/29/24 08:00 03/29/24 08:46
03/28/24 03/29/24 03/30/24
06:59 06:59 06:59
Actual Weight 126.8 kg 119.89 kg 124.3 kg
03/29/24 03:09
03/29/24 03:09
Magnesium 2.0 mg/dl (1.6-2.3) 03/28/24 04:40
Triglycerides 69 mg/dl (10-149) 03/25/24 06:31
LDL Cholesterol, Calc 77 mg/dl 03/25/24 06:31
VLDL Cholesterol, Calc 13 mg/dl (0-30) 03/25/24 06:31
HDL Cholesterol 48 mg/dl 03/25/24 06:31
03/24/24
13:12
Oya-N-Lmgksuwrcrc Pept [id number]
Physical Exam
Constitutional: No acute distress
Cardiovascular: Rhythm & rate is regular, JVD pressure is normal, Systolic murmur absent, Diastolic murmur absent and Pedal edema present (2+ bilaterally)
Respiratory: Respiratory effort normal, Lungs clear to auscul., Wheeze Absent and Crackles Absent
Neuro/Psych: AO x 3
Data Reviewed
-
Date of Service: March 29, 2024
EKG: Other (pacing)
[2024-03-29] MEDS: BACTROBAN 2% OINTMENT 1 APPLIC NASAL ×2 (12:31→21:16)
[2024-03-29] MEDS: ZETIA 10 MG PO (17:06)
--- NOTE | 2024-03-29 18:28 | PTCARENOTE ---
OOB all day. Wound care completed this am and wrapped. Remains on Bumex gtt. Denies pain- c/o being overly hungry from steroids- hoping to complete them soon. Voids in urinal, ambulated to bathroom once today. +BM.
[2024-03-29] MEDS: DESYREL 50 MG PO (23:09)
--- NOTE | 2024-03-29 23:54 | PTCARENOTE ---
Assumed care for pt overnight, received report via RN. Tele shows 100% AV pacing, on room air but occasional wears NC as needed, applies on his own. Lungs clear but diminished. Wound care performed on bilateral lower legs. Adalgisa wrap applied,
removed ROSS compression wraps for overnight. Was OOB to the chair during change of shift. Stood at bedside to get back into the bed. Pt states 'I get up into the chair multiple times a night'. Elevated heels with regular pillows. Pt voids in urinal
see i/o's. Remains on IV Bumex. Pt took trazodone at 22:00. Pt is requesting food and drinks. Pt is comfortable in bed, rings appropriately, call de la garza is within reach.
[2024-03-30] VITALS (11 sets, daily range): BP systolic 120–163; BP diastolic 56–94
[2024-03-30] MEDS: SYNTHROID 175 MCG PO (06:04)
[2024-03-30 06:45] LABS: Hematocrit 25.6 % (39.0-52.0); Hemoglobin 8.3 g/dL (13.0-18.0); Mean Corp Hgb Conc. 32.4 g/dL (33.0-37.0); Mean Corpuscular Hgb 26.2 pg (27.0-31.0); Mean Corpuscular Volume 80.8 fL (80.0-94.0); Mean Platelet Volume 10.8 fL (7.4-10.4); Platelet Count 184 10^3/uL (130-400); Red Blood Cell Count 3.17 10^6/uL (4.70-6.10); Red Cell Dist. Width 16.2 % (11.5-14.5); White Blood Cell Count 8.8 10^3/uL (4.8-10.8)
[2024-03-30 07:00] LABS: Blood Urea Nitrogen 58 mg/dl (9-20); Calcium 8.6 mg/dl (8.4-10.2); Carbon Dioxide 31 mmol/L (22-30); Chloride 95 mmol/L (98-107); Estimated Creatinine Clearance 35 ml/min; Glucose 168 mg/dl (70-99); Magnesium 2.1 mg/dl (1.6-2.3); Potassium 3.9 mmol/L (3.5-5.1); Sodium 135 mmol/L (135-145); eGFR 23.68
[2024-03-30] MEDS: BUMEX 50 IV ×2 (07:25→20:26)
--- NOTE | 2024-03-30 08:22 | W.PN.CD ---
Today's Communication / Plan
-
cont. bumex additional day; likely transition to oral diuretic tomorrow; transition meto tartrate to coreg
Impression / Plan
-
Impression/Plan: 68 y/o male with CAD s/p CABG and remote PCI, ICMP s/p SENIOR CYTOTECHNOLOGIST-D, PAF, CKD4 admitted with acute on chronic decompensated HFrEF.
#Acute on chronic HFrEF, severe exacerbation (requiring hospitalization and IV diuretic drip)
-LVEF 40-45%.
-Patient reports 22+lb weight gain at his facility.
-weight continues to improve with 1-2L negative on I/O for last 5 days
-Continue bumetanide gtt, which requires intensive monitoring
-Replace electrolytes as indicated
-Continue GDMT with hydralazine + isosorbide mononitrate. Will transition metop to coreg for better afterload reduction and mortality reduction in HFrEF. Renal function will likely limit SGLT2i, ARNi/ACEI/ARB and MRA.
#Primary pulmonary disease/COPD
-Chronic.
-Continue albuterol/ipratropium.
-He will need PFT's for surveillance due to his ongoing amiodarone use.
#Paroxysmal atrial fibrillation
-Currently ventricular paced rhythm.
-Rate/rhythm control with amiodarone/metoprolol. S/P SENIOR CYTOTECHNOLOGIST-D.
-CHADS2-Vasc = 4 (CHF, HTN, Age x1, vascular disease).
-Continue on amiodarone, continue anticoagulation with apixaban.
#Hypertension
-Chronic, mildly elevated.
-Continue hydralazine, isosorbide mononitrate, coreg
-monitor with diuresis
#CAD
#Hyperlipidemia
-Chronic, stable.
-S/P prior CABG/PCI, unknown anatomy.
-Continue aspirin
-per patient does not tolerate statin, continue ezetimibe; LDL 86, ideally should be <70, will address more intensive lipid lowering as outpatient
#Anemia
-Likely due to CKD and chronic disease.
-Monitor.
#CKD stage IV
-Chronic.
-monitor on bumetanide gtt.
#Hypothyroidism
Subjective/Interval History:
Feeling a little better overall, off O2, can now lie flat
DATA:
TTE, 03/26/2024:
CONCLUSIONS
Mild left ventricular systolic dysfunction with an EF of 40 to 45% by Charles's
biplane. Global hypokinesis.
Moderate mitral regurgitation.
Trace aortic regurgitation.
Moderate pulmonary hypertension.
Dilated aortic root and ascending aorta. Both 4.1 cm.
Left pleural effusion.
No prior study available for comparison.
Physical Exam
Vital Signs/Labs
Vital Signs
Temp Pulse Resp BP Pulse Ox
36.5 C 60 11 159/78 98
03/30/24 03:20 03/30/24 06:00 03/30/24 06:00 03/30/24 02:00 03/29/24 22:52
03/29/24 03/30/24 03/31/24
06:59 06:59 06:59
Actual Weight 119.89 kg 120.2 kg
03/30/24 06:34
03/30/24 06:34
Magnesium 2.1 mg/dl (1.6-2.3) 03/30/24 06:34
Triglycerides 69 mg/dl (10-149) 03/25/24 06:31
LDL Cholesterol, Calc 77 mg/dl 03/25/24 06:31
VLDL Cholesterol, Calc 13 mg/dl (0-30) 03/25/24 06:31
HDL Cholesterol 48 mg/dl 03/25/24 06:31
03/24/24
13:12
Uxg-I-Rtuajhiasgz Pept [id number]
Physical Exam
Constitutional: No acute distress and Comfortable
Cardiovascular: Rhythm & rate is regular, Systolic murmur absent, Diastolic murmur absent, Pedal edema present and Other (JVP now well seen though no JVD appreciated)
Respiratory: Respiratory effort normal and Lungs clear to auscul.
Neuro/Psych: Alert, Oriented and AO x 3
Data Reviewed
-
Date of Service: March 30, 2024
Medical Decision Making: Reviewed Test Results, Tests Ordered and Test Interpretation
EKG: Tracing Personally Visualized and interpreted and Report Reviewed by me
Echo: Report Reviewed by me
X-Ray/CT/US/MRI/NUC/PET: Report Reviewed by me
Labs: Labs Reviewed by me
[2024-03-30] MEDS: ASPIR LOW (ENTERIC COATED) 81 MG PO (09:07)
[2024-03-30] MEDS: PACERONE 200 MG PO (09:07)
[2024-03-30] MEDS: APRESOLINE 50 MG PO ×3 (09:07→22:22)
[2024-03-30] MEDS: IMDUR (EXTENDED RELEASE) 30 MG PO ×2 (09:07→20:33)
[2024-03-30] MEDS: KCL 40 MEQ PO (09:08)
[2024-03-30] MEDS: COREG 12.5 MG PO ×2 (09:08→20:33)
[2024-03-30] MEDS: SODIUM BICARBONATE 650 MG PO ×2 (09:08→20:33)
[2024-03-30] MEDS: SANTYL OINTMENT 1 APPLIC TOPICAL ×2 (09:08→20:34)
[2024-03-30] MEDS: ELIQUIS 5 MG PO ×2 (09:10→20:33)
[2024-03-30] MEDS: DELTASONE 40 MG PO (09:10)
[2024-03-30] MEDS: DESENEX/MITRAZOL/ZEASORB 1 APPLIC TOPICAL ×2 (09:13→20:34)
[2024-03-30] MEDS: BACTROBAN 2% OINTMENT NASAL ×2 (09:14→20:33)
--- NOTE | 2024-03-30 09:24 | WOUNDNOTE ---
[facility] RN NOTE: Visited patient to follow up on wounds and to address new consult for questionable new right LE wounds. The wounds on the right leg appear to be healing open blisters. Left medial ankle wound and left leg wounds appear stable. Blisters
on bilateral 5 toes appear stable. All wound care provided as ordered and continues to be appropriate at this time. ROSS applied as ordered. Patient remains on [employer] bed and reports good appetite. Heels and sacrum intact. DENNYS Ortiz assisted
with care and was given update. Will continue to follow as needed.
--- NOTE | 2024-03-30 09:52 | W.PN.HOSP.TC ---
Today's Communication/Plan
-
Continue with Bumex drip
Complete steroid regimen for presumed gout today
Trend I's and O's, renal function
Assessment / Plan
Assessment / Plan
#Acute on chronic hypoxic respiratory failure -- Resolved
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
-Echocardiogram showed EF 40-45%, mod MR, pulm HTN, left pleural effusion
-GDMT Home regimen included metoprolol, Imdur/hydralazine; limited by renal function
-Beta-marlo here was transitioned to carvedilol for increased afterload reduction
-Home regimen of Bumex 2 mg twice daily transition to drip here with good response
-Has since been weaned off of supplemental oxygen, required 8 L at max here
-Close to euvolemia on exam, renal function stable
-Cardiology following, may consider outpatient ischemic workup
Plan
-Continue IV Bumex drip; trend I's/O's, weight, BMP
-Continue with carvedilol, Imdur/hydralazine for GDMT
-Monitor oxygen status, SpO2 goal >90%
-Likely transition to oral diuretic tomorrow
#QT prolongation
-QTc on last ECG was 546 ms
-Possibly related to amiodarone
-Avoid unnecessary QT prolonging drugs
#Chronic lower extremity wounds
#Lower extremity lymphedema
-Wound care following
#Paroxysmal atrial fibrillation
-Rate has been well-controlled while here, no history of EP interventions
-Home regimen included metoprolol, amiodarone, Eliquis
-Metoprolol was transitioned to carvedilol while here
#Diffuse myalgias, arthralgias
#Possible gout
-Uric acid elevated, no specific joint that he states is painful
-Started on prednisone for 5 days, last dose 03/30
#Coronary artery disease status post CABG
-Home medications include ASA, Zetia, beta-marlo, Imdur
-No signs of active coronary ischemia here
-Likely contributing to reduced systolic function
#Benign essential hypertension
-No known history of hypertensive systemic disease
-Home medications include beta-marlo, hydralazine, Imdur
-Beta-marlo was transition to carvedilol while here
-BP slightly elevated now due to steroid
#Stage IV CKD
-Baseline creatinine seems to be in the range of 2.5-3.0 per previous records
-Unclear etiology, may be related to hypertension history
-Complicated by bone mineral disease and chronic acidemia
-Renal function stable on current diuretic drip
#Anemia of chronic disease
-Baseline hemoglobin seems to be near 8.0
-Related to CKD, reduced EPO production
#Hypothyroidism
-Unclear etiology, stable on home levothyroxine regimen
-No signs or symptoms of thyroid dysfunction here
#COPD
#Chronic hypoxemic respiratory failure
-Secondary to COPD, wears 3 to 4 L O2 at baseline
-No recent pulmonary function testing per our records
-Home regimen includes DuoNebs as needed
-No signs of exacerbation here
#Bilateral 5th toe stage 2 PI, POA
-Wound care
DVT prophylaxis�Eliquis
Full code
Dispo - from [facility]
Anticipated Discharge: 24 - 48 hours
Subjective/Interval History
-
Date of Service: March 30, 2024
Seen and examined at the bedside. No acute events overnight. AFVSS this morning.
He remains on IV Bumex drip, plan to continue for 1 more day. Currently on baseline oxygen
He mentions he has some muscle cramping though it is currently tolerable. He otherwise denies shortness of breath, chest pain, lightheadedness, nausea, vomiting, diarrhea, urinary issues, abnormal bleeding or bruising, paresthesias or weakness.
Objective Data
-
Labs:
Laboratory Results
03/30/24
06:34
WBC 8.8
Hgb 8.3 L
Hct 25.6 L
Plt Count 184
Sodium 135
Potassium 3.9
Chloride 95 L
Carbon Dioxide 31 H
BUN 58 H
Creatinine 2.8 H
Glucose 168 H
Calcium 8.6
Vital Signs:
Vital Signs
Temp Pulse Resp BP Pulse Ox
97.4 F 60 16 120/56 98
03/30/24 09:12 03/30/24 08:37 03/30/24 08:37 03/30/24 08:37 03/29/24 22:52
I&O
03/29/24 03/30/24 03/31/24
06:59 06:59 06:59
Intake Total 1296 / 1296 1060 / 1060
Output Total 2825 / 2825 4025 / 4025
Balance -1529 / -1529 -2965 / -2965
Review of Systems
-
History Source: Patient
All other systems: Reviewed and negative
Physical Exam
-
General: No Apparent Distress, Comfortable and Obese
HEENT: Normocephalic, Atraumatic and Moist Mucous Membranes
Respiratory: Rales (Bases) and Non Labored Respirations; Negative Wheezes, Rhonchi or Accessory Resp Muscle Use
Cardiac: Regular Rhythm and S1/S2; Negative Murmur, Rub, JVD or Gallop
GI: Soft, Nontender, Nondistended and Normal Bowel Sounds
Musculoskeletal: No Clubbing, No Cyanosis and No Edema
Skin: Warm and Dry; Negative Rash or Jaundice
Neuro: AO x 3, Nonfocal/Grossly Intact and Central Nerve's Intact
Psych: Calm
Data Reviewed
-
Labs: Labs Reviewed by me and Discussed with Patient
[2024-03-30] MEDS: LOPRESSOR PO (10:33)
--- NOTE | 2024-03-30 12:10 | PTCARENOTE ---
Patient AAO X3. Using call de la garza appropriately. Assist x1 with walker, steady on his feet. Bumex drip @ 4mg/hr. Using urinal appropriately. AV paced on monitor.
--- NOTE | 2024-03-30 17:24 | CM ---
Patient from [facility] with Dx HF. O2 4L. Receiving Bumex gtt. Seen by wound care nurse. PT Eval; transfer training. OT recommends skilled rehab.
[facility]: The phone for nurse report [phone], fax [phone].
Plan [facility] when medically ready.
[2024-03-30] MEDS: ZETIA 10 MG PO (18:40)
[2024-03-31] VITALS (13 sets, daily range): BP systolic 121–159; BP diastolic 61–104; BMI 33.5
[2024-03-31] MEDS: DESYREL PO (00:42)
--- NOTE | 2024-03-31 01:43 | PTCARENOTE ---
Assumed care for pt overnight, received report via dayshift RN. Tele shows 100% AV paced, currently wearing 4L NC O2 sat is 94%, takes it off intermittently. Some periods of apnea while sleeping. Lungs clear and diminished. Wound care performed on
bilateral lower legs. Adalgisa wrap applied, removed ROSS compression overnight. Stood at the bedside to void. Elevated heels with regular pillows. Remains on IV Bumex. Pt denied trazodone tonight stating 'it makes me too tired'. Pt is sleeping
currently with call de la garza within reach.
[2024-03-31] MEDS: SYNTHROID 175 MCG PO (05:56)
[2024-03-31] MEDS: BUMEX 50 IV (06:12)
[2024-03-31 06:16] LABS: % Immature Granulocytes 0.3 % (0-0.5); % Lymphocytes 6.2 % (20.5-51.1); % Monocytes 7.7 % (1.7-9.3); % Neutrophils 85.8 % (42.2-75.2); Absolute Lymphocytes 0.5 10^3/uL (1.2-3.4); Absolute Monocytes 0.6 10^3/uL (0.1-0.6); Absolute Neutrophils 6.4 10^3/uL (1.4-6.5); Hemoglobin 8.6 g/dL (13.0-18.0); Mean Corp Hgb Conc. 31.9 g/dL (33.0-37.0); Mean Corpuscular Hgb 26.6 pg (27.0-31.0); Mean Corpuscular Volume 83.6 fL (80.0-94.0); Mean Platelet Volume 10.7 fL (7.4-10.4); Nucleated Red Blood Cells % 0 % (-); Platelet Count 175 10^3/uL (130-400); Red Blood Cell Count 3.23 10^6/uL (4.70-6.10); Red Cell Dist. Width 15.9 % (11.5-14.5); White Blood Cell Count 7.4 10^3/uL (4.8-10.8)
[2024-03-31 06:35] LABS: Blood Urea Nitrogen 62 mg/dl (9-20); Calcium 8.6 mg/dl (8.4-10.2); Carbon Dioxide 30 mmol/L (22-30); Chloride 95 mmol/L (98-107); Estimated Creatinine Clearance 34 ml/min; Glucose 170 mg/dl (70-99); Magnesium 2.1 mg/dl (1.6-2.3); Potassium 4.1 mmol/L (3.5-5.1); Sodium 137 mmol/L (135-145); eGFR 22.71
--- NOTE | 2024-03-31 08:05 | PTCARENOTE ---
Received pt from film processing shift supervisor. AAOx3. AV paced on monitor. VSS. LAURY medications given (see MAR). Hygiene completed. Resting in bed with call de la garza in reach.
[2024-03-31] MEDS: PACERONE 200 MG PO (08:38)
[2024-03-31] MEDS: IMDUR (EXTENDED RELEASE) 30 MG PO ×2 (08:38→20:37)
[2024-03-31] MEDS: ASPIR LOW (ENTERIC COATED) 81 MG PO (08:39)
[2024-03-31] MEDS: ELIQUIS 5 MG PO ×2 (08:39→20:37)
[2024-03-31] MEDS: COREG 12.5 MG PO ×2 (08:39→20:33)
[2024-03-31] MEDS: SODIUM BICARBONATE 650 MG PO ×2 (08:39→20:37)
[2024-03-31] MEDS: APRESOLINE 50 MG PO ×3 (08:40→22:32)
[2024-03-31] MEDS: KCL 40 MEQ PO (08:40)
[2024-03-31] MEDS: SANTYL OINTMENT 1 APPLIC TOPICAL ×2 (08:41→20:39)
[2024-03-31] MEDS: BACTROBAN 2% OINTMENT NASAL ×2 (08:42→20:33)
[2024-03-31] MEDS: DESENEX/MITRAZOL/ZEASORB 1 APPLIC TOPICAL (08:43)
--- NOTE | 2024-03-31 09:32 | W.PN.CD ---
Today's Communication / Plan
-
transitioning to PO bumex today; if responds and stays weight stable, can likely discharge tomorrow; starting amlodipine for better BP control
Impression / Plan
-
Impression/Plan: 68 y/o male with CAD s/p CABG and remote PCI, ICMP s/p [employer]-D, PAF, CKD4 admitted with acute on chronic decompensated HFrEF.
#Acute on chronic HFrEF, severe exacerbation (requiring hospitalization and IV diuretic drip)
-LVEF 40-45%.
-Patient reports 22+lb weight gain at his facility.
-weight continues to improve with 1-2L negative on I/O for last 5 days, now back to reported baseline weight
-transition to bumex 4 PO BID today (not this is a considerable dose reduction relative to his 1 IV per hour but a doubling of his prior outpatient dose), monitor response and weight trend
-Replace electrolytes as indicated
-Continue GDMT with hydralazine + isosorbide mononitrate. Transitioned metop to coreg for better afterload reduction and mortality reduction in HFrEF. Renal function will likely limit SGLT2i, ARNi/ACEI/ARB and MRA.
-needs strict weight based diuretic instructions as an outpatient: daily weights, if gains >5 pounds from discharge weight or >3 pounds in one day, or if notices signs of worsening breathing or lower extremity edema, or that he is no longer
urinating, he should increase Bumex dose to 6 BID and contact manager customer service office immediately
#Primary pulmonary disease/COPD
-Chronic.
-Continue albuterol/ipratropium.
-He will need PFT's for surveillance due to his ongoing amiodarone use.
#Paroxysmal atrial fibrillation
-Currently ventricular paced rhythm.
-Rate/rhythm control with amiodarone/metoprolol. S/P [employer]-D.
-CHADS2-Vasc = 4 (CHF, HTN, Age x1, vascular disease).
-Continue on amiodarone, continue anticoagulation with apixaban.
#Hypertension
-Chronic, mildly elevated.
-Continue hydralazine, isosorbide mononitrate, coreg
-start amlodipine for additional control
-monitor with diuresis
#CAD
#Hyperlipidemia
-Chronic, stable.
-S/P prior CABG/PCI, unknown anatomy.
-Continue aspirin
-per patient does not tolerate statin, continue ezetimibe; LDL 86, ideally should be <70, will address more intensive lipid lowering as outpatient
#Anemia
-Likely due to CKD and chronic disease.
-Monitor.
#CKD stage IV
-Chronic.
-monitor on bumetanide gtt.
#Hypothyroidism
Subjective/Interval History:
Feeling back to baseline in terms of fluid status and breathing
DATA:
TTE, 03/26/2024:
CONCLUSIONS
Mild left ventricular systolic dysfunction with an EF of 40 to 45% by Charles's
biplane. Global hypokinesis.
Moderate mitral regurgitation.
Trace aortic regurgitation.
Moderate pulmonary hypertension.
Dilated aortic root and ascending aorta. Both 4.1 cm.
Left pleural effusion.
No prior study available for comparison.
Physical Exam
Vital Signs/Labs
Vital Signs
Temp Pulse Resp BP Pulse Ox
36.4 C 60 15 152/80 81
03/31/24 07:00 03/31/24 08:40 03/30/24 20:00 03/31/24 08:40 03/31/24 02:00
03/30/24 03/31/24 04/01/24
06:59 06:59 06:59
Actual Weight 124.3 kg 121.4 kg
03/31/24 06:06
03/31/24 06:06
Magnesium 2.1 mg/dl (1.6-2.3) 03/31/24 06:06
Triglycerides 69 mg/dl (10-149) 03/25/24 06:31
LDL Cholesterol, Calc 77 mg/dl 03/25/24 06:31
VLDL Cholesterol, Calc 13 mg/dl (0-30) 03/25/24 06:31
HDL Cholesterol 48 mg/dl 03/25/24 06:31
03/24/24
13:12
Igg-D-Ohbalufosbb Pept
Physical Exam
Constitutional: No acute distress and Comfortable
Cardiovascular: Rhythm & rate is regular, JVD pressure is normal (no JVD seen with patient sitting upright), Systolic murmur absent, Diastolic murmur absent and Pedal edema present
Respiratory: Respiratory effort normal and Lungs clear to auscul.
Neuro/Psych: Alert, Oriented and AO x 3
Data Reviewed
-
Date of Service: March 31, 2024
Medical Decision Making: Reviewed Test Results
Labs: Labs Reviewed by me and Labs Ordered by me
--- NOTE | 2024-03-31 09:40 | W.PN.HOSP.TC ---
Today's Communication/Plan
-
Transition to oral diuretic regimen
Discharge planning
BMP in 5 days as outpatient to recheck kidney function
Assessment / Plan
Assessment / Plan
#Acute on chronic hypoxic respiratory failure -- Resolved
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
-Echocardiogram showed EF 40-45%, mod MR, pulm HTN, left pleural effusion
-GDMT Home regimen included metoprolol, Imdur/hydralazine; limited by renal function
-Beta-marlo here was transitioned to carvedilol for increased afterload reduction
-Home regimen of Bumex 2 mg twice daily transition to drip here with good response
-Has since been weaned off of supplemental oxygen, required 8 L at max here
-Seems euvolemic today with mild bump in his BUN and creatinine
-Cardiology following, may consider outpatient ischemic workup
Plan
-Transition from IV Bumex to oral regimen today
-Continue with carvedilol, Imdur/hydralazine for GDMT
-Monitor oxygen status, SpO2 goal >90%
-Likely transition to oral diuretic tomorrow
#QT prolongation
-QTc on last ECG was 546 ms
-Possibly related to amiodarone
-Avoid unnecessary QT prolonging drugs
#Chronic lower extremity wounds
#Lower extremity lymphedema
-Wound care following
#Paroxysmal atrial fibrillation
-Rate has been well-controlled while here, no history of EP interventions
-Home regimen included metoprolol, amiodarone, Eliquis
-Metoprolol was transitioned to carvedilol while here
#Diffuse myalgias, arthralgias
#Possible gout
-Uric acid elevated, no specific joint that he states is painful
-Started on prednisone for 5 days, last dose 03/30
#Coronary artery disease status post CABG
-Home medications include ASA, Zetia, beta-marlo, Imdur
-No signs of active coronary ischemia here
-Likely contributing to reduced systolic function
#Benign essential hypertension
-No known history of hypertensive systemic disease
-Home medications include beta-marlo, hydralazine, Imdur
-Beta-marlo was transition to carvedilol while here
-BP slightly elevated now due to steroid
#Stage IV CKD
-Baseline creatinine seems to be in the range of 2.5-3.0 per previous records
-Unclear etiology, may be related to hypertension history
-Complicated by bone mineral disease and chronic acidemia
-Renal function stable on current diuretic drip
#Anemia of chronic disease
-Baseline hemoglobin seems to be near 8.0
-Related to CKD, reduced EPO production
#Hypothyroidism
-Unclear etiology, stable on home levothyroxine regimen
-No signs or symptoms of thyroid dysfunction here
#COPD
#Chronic hypoxemic respiratory failure
-Secondary to COPD, wears 3 to 4 L O2 at baseline
-No recent pulmonary function testing per our records
-Home regimen includes DuoNebs as needed
-No signs of exacerbation here
#Bilateral 5th toe stage 2 PI, POA
-Wound care
DVT prophylaxis: Eliquis
CODE STATUS: Code
Dispo:[facility]ella [facility] [place]
Anticipated Discharge: Today
Subjective/Interval History
-
Date of Service: March 31, 2024
Seen and examined at the bedside today. No acute events overnight. AFVSS this morning.
He was not wearing his supplemental oxygen, reported is fully her baseline. He states that he does not wear it unless feels like he needs it. I cautioned him on silent hypoxia
He denies any acute complaints including chest pain, shortness of breath, fevers or chills, GI issues, urinary issues, abnormal bleeding or bruising, paresthesias or weakness
Objective Data
-
Labs:
Laboratory Results
03/31/24
06:06
WBC 7.4
Hgb 8.6 L
Hct 27.0 L
Plt Count 175
Sodium 137
Potassium 4.1
Chloride 95 L
Carbon Dioxide 30
BUN 62 H
Creatinine 2.9 H
Glucose 170 H
Calcium 8.6
Vital Signs:
Vital Signs
Temp Pulse Resp BP Pulse Ox
97.6 F 60 15 152/80 81
03/31/24 07:00 03/31/24 08:40 03/30/24 20:00 03/31/24 08:40 03/31/24 02:00
I&O
03/30/24 03/31/24 04/01/24
06:59 06:59 06:59
Intake Total 1060 / 1060 573 / 573
Output Total 4025 / 4025 3380 / 3380
Balance -2965 / -2965 -2807 / -2807
Review of Systems
-
History Source: Patient
All other systems: Reviewed and negative
Physical Exam
-
General: Well Nourished, No Apparent Distress and Comfortable
HEENT: Normocephalic, Atraumatic, Moist Mucous Membranes and Anicteric
Respiratory: Clear to Auscultation and Non Labored Respirations; Negative Wheezes, Rales, Rhonchi or Accessory Resp Muscle Use
Cardiac: Regular Rhythm and S1/S2; Negative Murmur, Rub, JVD or Gallop
GI: Soft, Nontender, Nondistended and Normal Bowel Sounds
Musculoskeletal: No Clubbing, No Cyanosis and No Edema
Skin: Warm and Dry; Negative Rash or Jaundice
Neuro: AO x 3, Nonfocal/Grossly Intact and Central Nerve's Intact
Psych: Calm
Data Reviewed
-
Labs: Labs Reviewed by me and Discussed with Patient
--- NOTE | 2024-03-31 10:18 | CM ---
Patient from [facility] with Dx HF. O2 4L. Receiving Bumex gtt. Seen by wound care nurse. PT Eval; transfer training. OT recommends skilled rehab.
Spoke with Oanh Vyas [facility]; provided clinical update. [facility] referral updated.
[facility]: The phone for nurse report [phone], fax [phone].
Obtained patient contacts from Asael:
daughter Gabby GoldbergRay, ph [phone]
son Nasir MagañaMyla, ph [phone]
Contacts provided to Admissions to update demographics.
Plan contact daughter/son prior to d/c.
Plan [facility] when medically ready.
[2024-03-31] MEDS: NORVASC 5 MG PO (10:38)
[2024-03-31] MEDS: BUMEX 4 MG PO ×2 (10:38→17:20)
[2024-03-31] MEDS: ZETIA 10 MG PO (17:21)
--- NOTE | 2024-03-31 20:15 | PTCARENOTE ---
on assessment pt AAOx3, denies pain and SOB, AV paced on the monitor, RA, CPAP at night, 1200 FR, uses urinal, BLLE wound care completed, bed alarm on and call de la garza in reach.
[2024-03-31] MEDS: BACTROBAN 2% OINTMENT 1 APPLIC NASAL (20:39)
[2024-03-31] MEDS: DESENEX/MITRAZOL/ZEASORB TOPICAL (22:31)
[2024-03-31] MEDS: DESYREL 50 MG PO (22:32)
[2024-04-01] VITALS: BP 150/84
[2024-04-01 02:00] VITALS: BP 143/81
[2024-04-01 03:04] VITALS: BMI 31.0
[2024-04-01 04:00] VITALS: BP 151/78
[2024-04-01] MEDS: SYNTHROID 175 MCG PO (05:25)
[2024-04-01 06:00] VITALS: BP 137/74
--- NOTE | 2024-04-01 06:19 | DOWNTIME ---
There was a [employer] Downtime on 04/01/2024 from 0100 to 04/01/2024 at 0300. Downtime documentation of patient's care, including medication administrations, has been reconciled in the electronic record per guidelines. Refer to the
patient's paper chart under the miscellaneous tab to see printed paper medication records and downtime forms.
[2024-04-01 06:21] LABS: % Basophils 0.4 % (0-2); % Eosinophils 1.7 % (0-6); % Immature Granulocytes 0.4 % (0-0.5); % Lymphocytes 16.2 % (20.5-51.1); % Monocytes 9.5 % (1.7-9.3); % Neutrophils 71.8 % (42.2-75.2); Absolute Eosinophils 0.1 10^3/uL (0-0.7); Absolute Lymphocytes 0.9 10^3/uL (1.2-3.4); Absolute Monocytes 0.5 10^3/uL (0.1-0.6); Absolute Neutrophils 3.8 10^3/uL (1.4-6.5); Hematocrit 25.9 % (39.0-52.0); Hemoglobin 8.2 g/dL (13.0-18.0); Mean Corp Hgb Conc. 31.7 g/dL (33.0-37.0); Mean Corpuscular Hgb 25.8 pg (27.0-31.0); Mean Corpuscular Volume 81.4 fL (80.0-94.0); Mean Platelet Volume 11.5 fL (7.4-10.4); Nucleated Red Blood Cells % 0 % (-); Platelet Count 193 10^3/uL (130-400); Red Blood Cell Count 3.18 10^6/uL (4.70-6.10); Red Cell Dist. Width 16.1 % (11.5-14.5); White Blood Cell Count 5.2 10^3/uL (4.8-10.8)
[2024-04-01 06:45] LABS: Blood Urea Nitrogen 69 mg/dl (9-20); Calcium 8.4 mg/dl (8.4-10.2); Carbon Dioxide 32 mmol/L (22-30); Chloride 94 mmol/L (98-107); Estimated Creatinine Clearance 35 ml/min; Glucose 118 mg/dl (70-99); Sodium 135 mmol/L (135-145); eGFR 24.74
[2024-04-01] MEDS: ELIQUIS 5 MG PO (07:56)
[2024-04-01] MEDS: KCL 40 MEQ PO (07:56)
[2024-04-01] MEDS: ASPIR LOW (ENTERIC COATED) 81 MG PO (07:57)
[2024-04-01] MEDS: PACERONE 200 MG PO (07:57)
[2024-04-01] MEDS: APRESOLINE 50 MG PO (07:57)
[2024-04-01] MEDS: SODIUM BICARBONATE 650 MG PO (07:57)
[2024-04-01] MEDS: IMDUR (EXTENDED RELEASE) 30 MG PO (07:57)
[2024-04-01] MEDS: NORVASC 5 MG PO (07:57)
[2024-04-01] MEDS: COREG 12.5 MG PO (07:57)
[2024-04-01] MEDS: BUMEX 4 MG PO (07:58)
[2024-04-01 08:00] VITALS: BP 115/61
[2024-04-01 09:02] VITALS: BP 117/68
--- NOTE | 2024-04-01 09:17 | W.PN.CD ---
Today's Communication / Plan
-
Stable on bumex 4mg PO bid
metoprolol changed to coreg this admission; and amlodipine added
discharge planning
we will call patient for follow up appt
please call us with additional questions
Impression / Plan
-
Impression/Plan: 68 y/o male with CAD s/p CABG and remote PCI, ICMP s/p PROJ ENGINEER-D, PAF, CKD4 admitted with acute on chronic decompensated HFrEF.
#Acute on chronic HFrEF, severe exacerbation (requiring hospitalization and IV diuretic drip): improved s/p IV diuretic
-LVEF 40-45%.
-Patient reports 22+lb weight gain at his facility.
-transitioned to bumex 4mg PO BID
-Continue GDMT with hydralazine + isosorbide mononitrate. Transitioned metop to coreg for better afterload reduction and mortality reduction in HFrEF. Renal function will likely limit SGLT2i, ARNi/ACEI/ARB and MRA.
-needs strict weight based diuretic instructions as an outpatient: daily weights, if gains >5 pounds from discharge weight or >3 pounds in one day, or if notices signs of worsening breathing or lower extremity edema, or that he is no longer
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
#Primary pulmonary disease/COPD
-Chronic.
-Continue albuterol/ipratropium.
-He will need PFT's for surveillance due to his ongoing amiodarone use.
#Paroxysmal atrial fibrillation
-Currently ventricular paced rhythm.
-Rate/rhythm control with amiodarone/coreg. S/P PROJ ENGINEER-D.
-CHADS2-Vasc = 4 (CHF, HTN, Age x1, vascular disease).
-Continue on amiodarone, continue anticoagulation with apixaban.
#Hypertension
-Chronic, mildly elevated: improved with recent addition of amlodipine
-Continue hydralazine, isosorbide mononitrate, coreg
-started amlodipine for additional control this admission
-monitor with diuresis
#CAD
#Hyperlipidemia
-Chronic, stable.
-S/P prior CABG/PCI, unknown anatomy.
-Continue aspirin
-per patient does not tolerate statin, continue ezetimibe; LDL 86, ideally should be <70, will address more intensive lipid lowering as outpatient
#Anemia
-Likely due to CKD and chronic disease.
-Monitor.
#CKD stage IV
-Chronic.
-monitor on bumetanide gtt.
#Hypothyroidism
Subjective/Interval History:
SOB and edema better.
DATA:
TTE, 03/26/2024:
CONCLUSIONS
Mild left ventricular systolic dysfunction with an EF of 40 to 45% by Charles's
biplane. Global hypokinesis.
Moderate mitral regurgitation.
Trace aortic regurgitation.
Moderate pulmonary hypertension.
Dilated aortic root and ascending aorta. Both 4.1 cm.
Left pleural effusion.
No prior study available for comparison.
Physical Exam
Vital Signs/Labs
Vital Signs
Temp Pulse Resp BP Pulse Ox
97.2 F 60 21 137/74 99
04/01/24 07:47 04/01/24 07:57 04/01/24 00:00 04/01/24 07:57 03/31/24 11:12
03/31/24 04/01/24 04/02/24
06:59 06:59 06:59
Actual Weight 121.4 kg 112.6 kg
04/01/24 05:23
04/01/24 05:23
Magnesium 2.1 mg/dl (1.6-2.3) 03/31/24 06:06
Triglycerides 69 mg/dl (10-149) 03/25/24 06:31
LDL Cholesterol, Calc 77 mg/dl 03/25/24 06:31
VLDL Cholesterol, Calc 13 mg/dl (0-30) 03/25/24 06:31
HDL Cholesterol 48 mg/dl 03/25/24 06:31
03/24/24
13:12
Weo-K-Swrbjuyjjoz Pept
Physical Exam
Constitutional: No acute distress and Comfortable
EENT: Moist mucous membranes
Cardiovascular: Rhythm & rate is regular, Systolic murmur absent, Pedal edema present and JVD present
Respiratory: Respiratory effort normal and Lungs clear to auscul.
GI: Distention absent
Neuro/Psych: AO x 3
Data Reviewed
-
Date of Service: April 01, 2024
EKG: Other (Tele: AV paced 60)
Labs: Labs Reviewed by me
--- NOTE | 2024-04-01 10:03 | W.PN.HOSP.TC ---
Today's Communication/Plan
-
Discharge to nursing facility
Assessment / Plan
Assessment / Plan
#Acute on chronic hypoxic respiratory failure -- Resolved
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
-Echocardiogram showed EF 40-45%, mod MR, pulm HTN, left pleural effusion
-GDMT Home regimen included metoprolol, Imdur/hydralazine; limited by renal function
-Beta-marlo here was transitioned to carvedilol for increased afterload reduction
-Home regimen of Bumex 2 mg twice daily transition to drip here with good response
-Has since been weaned off of supplemental oxygen, required 8 L at max here
-Cardiology following, may consider outpatient ischemic workup
-Euvolemic on oral regimen
Plan
-Discharge on 3 mg Bumex twice daily
-Continue with carvedilol, Imdur/hydralazine for GDMT
-Continue with baseline oxygen requirements
#QT prolongation
-QTc on last ECG was 546 ms
-Possibly related to amiodarone
-Avoid unnecessary QT prolonging drugs
#Chronic lower extremity wounds
#Lower extremity lymphedema
-Wound care following
#Paroxysmal atrial fibrillation
-Rate has been well-controlled while here, no history of EP interventions
-Home regimen included metoprolol, amiodarone, Eliquis
-Metoprolol was transitioned to carvedilol while here
#Diffuse myalgias, arthralgias
#Possible gout
-Uric acid elevated, no specific joint that he states is painful
-Started on prednisone for 5 days, last dose 03/30
#Coronary artery disease status post CABG
-Home medications include ASA, Zetia, beta-marlo, Imdur
-No signs of active coronary ischemia here
-Likely contributing to reduced systolic function
#Benign essential hypertension
-No known history of hypertensive systemic disease
-Home medications include beta-marlo, hydralazine, Imdur
-Beta-marlo was transition to carvedilol while here, started on amlodipine as well
-No contraindication to amlodipine with HFrEF per 2021 AHA guidelines
#Stage IV CKD
-Baseline creatinine seems to be in the range of 2.5-3.0 per previous records
-Unclear etiology, may be related to hypertension history
-Complicated by bone mineral disease and chronic acidemia
-Renal function stable on current diuretic drip
#Anemia of chronic disease
-Baseline hemoglobin seems to be near 8.0
-Related to CKD, reduced EPO production
#Hypothyroidism
-Unclear etiology, stable on home levothyroxine regimen
-No signs or symptoms of thyroid dysfunction here
#COPD
#Chronic hypoxemic respiratory failure
-Secondary to COPD, wears 3 to 4 L O2 at baseline
-No recent pulmonary function testing per our records
-Home regimen includes DuoNebs as needed
-No signs of exacerbation here
#Bilateral 5th toe stage 2 PI, POA
-Wound care
DVT prophylaxis: Eliquis
CODE STATUS: Code
Dispo:[facility]ella [facility] [place]
Anticipated Discharge: Today
Subjective/Interval History
-
Date of Service: April 01, 2024
Seen and examined at bedside today. No acute events overnight. AFVSS this morning on room air.
His renal function is stable, urine output adequate on oral diuretic regimen.
Denies chest pain, shortness of breath, fevers or chills, GI issues, urinary issues, abnormal bleeding or bruising, paresthesias or weakness.
States that his is ill and he would very much like to go back to the facility as soon as possible
Objective Data
-
Labs:
Laboratory Results
04/01/24
05:23
WBC 5.2
Hgb 8.2 L
Hct 25.9 L
Plt Count 193
Sodium 135
Potassium 4.0
Chloride 94 L
Carbon Dioxide 32 H
BUN 69 H
Creatinine 2.7 H
Glucose 118 H
Calcium 8.4
Vital Signs:
Vital Signs
Temp Pulse Resp BP Pulse Ox
97.2 F 60 21 137/74 99
04/01/24 07:47 04/01/24 07:57 04/01/24 00:00 04/01/24 07:57 03/31/24 11:12
I&O
03/31/24 04/01/24 04/02/24
06:59 06:59 06:59
Intake Total 573 / 573 540 / 540
Output Total 3380 / 3380 2445 / 2445
Balance -2807 / -2807 -1905 / -1905
Review of Systems
-
History Source: Patient
All other systems: Reviewed and negative
Physical Exam
-
General: Well Nourished, No Apparent Distress and Comfortable
HEENT: Normocephalic, Atraumatic, Moist Mucous Membranes and Anicteric
Respiratory: Clear to Auscultation and Non Labored Respirations; Negative Wheezes, Rales or Rhonchi
Cardiac: Regular Rhythm and S1/S2; Negative Murmur, Rub, JVD or Gallop
GI: Soft, Nontender, Nondistended and Normal Bowel Sounds
Musculoskeletal: No Clubbing, No Cyanosis and No Edema
Skin: Warm and Dry; Negative Rash
Neuro: AO x 3, Nonfocal/Grossly Intact and Central Nerve's Intact; Negative Tremors
Psych: Calm
Data Reviewed
-
Labs: Labs Reviewed by me, Discussed with Physician and Discussed with Patient
--- NOTE | 2024-04-01 10:17 | W.DCSUMMARY ---
Discharge Summary
Discharge Data
Date of Admission: 03/24/24
Date of Discharge: 04/01/24
-
Pending Results: No
Hospital Course
68-year-old male with chronic hypoxemic respiratory failure from COPD (3 to 4 L at baseline as needed), CHF, CAD s/p CABG, AF (on Eliquis), CKD 4, AoCKD, T2DM with neuropathy, hypertension, HLD with history of statin myopathy that presented with
decompensated heart failure. Excessive weight gain while at senior care. Upon arrival to the hospital he was started on IV Bumex drip. Echocardiogram showed reduced EF of 40-45% with evidence of pulmonary hypertension. Cardiology provided
guidance.
Home GDMT regimen was changed for optimization of afterload. His metoprolol tartrate was transition to carvedilol for added alpha-adrenergic antagonism. He was started on amlodipine for additional afterload reduction. Lastly, his
Imdur/hydralazine combination was escalated with hydralazine 3 times daily, again for afterload reduction.
He clinically improved on IV Bumex drip and alterations to his GDMT regimen. Was transition from Bumex drip to bumetanide 4 mg twice daily oral regimen. Should be continued at time of discharge. Will have follow-up appointment scheduled with
tomographic tech. Renal function stable on diuretic provided.
Discharge Plan
-
Patient Disposition: Care Home/SNF
Discharge Diagnosis/Procedures: Acute on chronic systolic heart failure (HFmrEF)
Condition: Good
Diet: No added salt
Additional Diets: <4 g dietary sodium daily, no added salt; <2 oral free water intake daily
Activity: As tolerated
Driving Restrictions: Not until seen by your Dr
Bathing Restrictions: None
Blood Work: None
Others Tests: None
Activity Restrictions/Additional Instructions:
Wound Care Instructions Left Medial Ankle and Left Anterior Leg Necrotic Wound- Clean with Vashe and apply abe thick layer of SANTYL and cover with adaptic, ABD and Adalgisa. Change BID and and PRN for drainage.
Right and Left 5th toes, right LE open blisters- Clean with Vashe moistened gauze and apply adaptic, ABD and gauze. Change BID and PRN for drainage.
ROSS wraps to bilateral LE, re-apply daily
Use protective foam or protective shoe while in wheelchair to avoid pressure and friction to bilateral 5th toes.
Instructions: Medicines for heart failure with reduced ejection fraction, *PCP/Other [facility] Heart Failure Instructions
Referrals:
Clemente Alvarenga MD [Active] - ([facility] office will call to schedule follow-up)
Mj Peck DO [Family Provider] -
Additional Discharge Medication Instructions: STOP metoprolol tartrate, START carvedilol 12.5 mg twice daily
START amlodipine 5 mg daily
INCREASE bumex to 4 mg twice daily
INCREASE hydralazine to 50 mg 3 times daily
Prescriptions:
New
hydralazine 50 mg Tablet
50 mg PO TID 30 Days Qty: 90 0RF
bumetanide 2 mg Tablet
4 mg PO BID@0800,1600 30 Days Qty: 120 0RF
carvedilol 12.5 mg Tablet
12.5 mg PO BID 30 Days Qty: 60 0RF
amlodipine 5 mg Tablet
5 mg PO DAILY 30 Days Qty: 30 0RF
Continued
levothyroxine [Synthroid] 175 mcg Tablet
175 mcg PO DAILY
acetaminophen [Tylenol] 325 mg Tablet
650 mg PO Q4HPRN PRN (Reason: mild pain)
ipratropium-albuterol 0.5 mg-3 mg(2.5 mg base)/3 mL Solution For Nebulization
3 ml INHALATION R Q6HPRN PRN (Reason: sob)
trazodone 50 mg Tablet
50 mg PO HS
amiodarone 200 mg Tablet
200 mg PO DAILY
isosorbide mononitrate 30 mg Tablet Extended Release 24 Hr
30 mg PO Q12H
aspirin 81 mg Tablet,Delayed Release (Dr/Ec)
81 mg PO DAILY
potassium chloride 20 mEq Tablet,Er Particles/Crystals
40 meq PO DAILY
sodium bicarbonate 650 mg Tablet
650 mg PO BID
bisacodyl [Dulcolax (bisacodyl)] 10 mg Suppository
10 mg MD [id number] PRN (Reason: if no bm aftr mom)
ezetimibe [Zetia] 10 mg Tablet
10 mg PO QPM
calcium carbonate-vitamin D3 [Calcium 500 + D] 500 mg-10 mcg (400 unit) Tablet
1 tab PO BID
lactulose 20 gram/30 mL Solution
20 g PO HSPRN PRN (Reason: constipation)
Eliquis 5 mg Tablet
5 mg PO BID
Discontinued
bumetanide [Bumex] 2 mg Tablet
2 mg PO BID
metoprolol tartrate [Lopressor] 100 mg Tablet
100 mg PO BID
dextromethorphan-guaifenesin [Tussin DM] 10-100 mg/5 mL Syrup
10 ml PO Q4HPRN PRN (Reason: cough)
hydralazine 50 mg Tablet
50 mg PO BID
Discharge Orders:
Discharge Patient (As Directed); Ordered 04/01/24
Ordered By: Carroll Fried
Discharge Date and Time
Print Language: WELSH
[2024-04-01] MEDS: SANTYL OINTMENT TOPICAL (11:22)
[2024-04-01] MEDS: DESENEX/MITRAZOL/ZEASORB TOPICAL (11:22)
--- NOTE | 2024-04-01 11:49 | CM ---
MD entered order for discharge.
Spoke with Barry at [facility] [address] . 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
Spoke with Gabby bauman she agreed with dc . IMM explained to her all questions answered.
TT MD to call dgt as dgt requested.
Dgt requested ambulance . Medical nec form completed.
Pt on 4 liter oxygen . Pt has no home oxygen .At SNf only.
[facility] SN[facility]:
report [phone]
fax [phone].
PLAN return to [facility] [address]
== END 2024-04-01 14:05 | DRG 291 ==
LOC: IMU 15:28
PROVIDERS: Family Medicine; Nurse Practitioner Family; Physician Assistant; Registered Nurse; ADMITTING PHYSICIAN Hospitalist; ATTENDING PHYSICIAN Internal Medicine; EMERGENCY PHYSICIAN Emergency Medicine; FAMILY PHYSICIAN Student in an Organized Health Care Education/Training Program; OTHER PHYSICIAN Internal Medicine Cardiovascular Disease
DX: I13.0 Hypertensive heart and chronic kidney disease with heart failure and stage 1 through stage 4 chronic kidney disease, or unspecified chronic kidney disease (principal); I50.23 Acute on chronic systolic (congestive) heart failure; J96.21 Acute and chronic respiratory failure with hypoxia; N18.4 Chronic kidney disease, stage 4 (severe); Z87.891 Personal history of nicotine dependence; I25.10 Atherosclerotic heart disease of native coronary artery without angina pectoris; Z79.01 Long term (current) use of anticoagulants; Z79.82 Long term (current) use of aspirin; I48.0 Paroxysmal atrial fibrillation; D63.1 Anemia in chronic kidney disease; E03.9 Hypothyroidism, unspecified; J44.9 Chronic obstructive pulmonary disease, unspecified; Z11.52 Encounter for screening for COVID-19; L89.892 Pressure ulcer of other site, stage 2
CPT/HCPCS: 36600; 71045; 80048; 80053; 80061; 82248; 82728; 82746; 82805; 83540; 83550; 83735; 83880; 84443; 84484; 84550; 85025; 85027; 85652; 86140; 87811; 93005; 93306; 96374; 97116; 97163; 97167; 97530; 97535; 99285; Q9950

== ENCOUNTER → 2024-04-08 09:43 | Outpatient (REF) | payer MEDICARE, BC, SELFPAY ==
[2024-04-08 11:30] LABS: Hematocrit 23.2 % (39.0-52.0); Hemoglobin 7.2 g/dL (13.0-18.0); Mean Corpuscular Hgb 25.6 pg (27.0-31.0); Mean Corpuscular Volume 82.6 fL (80.0-94.0); Mean Platelet Volume 11.3 fL (7.4-10.4); Platelet Count 177 10^3/uL (130-400); Red Blood Cell Count 2.81 10^6/uL (4.70-6.10); Red Cell Dist. Width 16.1 % (11.5-14.5)
[2024-04-08 12:00] LABS: ALT (SGPT) 22 U/L (0-50); AST (SGOT) 14 U/L (17-59); Albumin 3.1 g/dl (3.5-5.0); Alkaline Phosphatase 86 U/L (38-126); Blood Urea Nitrogen 53 mg/dl (9-20); Calcium 8.8 mg/dl (8.4-10.2); Carbon Dioxide 27 mmol/L (22-30); Chloride 99 mmol/L (98-107); Glucose 129 mg/dl (70-99); Magnesium 2.4 mg/dl (1.6-2.3); Potassium 4.2 mmol/L (3.5-5.1); Sodium 139 mmol/L (135-145); Total Bilirubin 0.3 mg/dl (0.2-1.3); Total Protein 5.2 g/dl (6.3-8.2); eGFR 17.52
== END ==
LOC: OLABN 09:43
PROVIDERS: ATTENDING PHYSICIAN Student in an Organized Health Care Education/Training Program
DX: E11.21 Type 2 diabetes mellitus with diabetic nephropathy (principal)
CPT/HCPCS: 36415; 80053; 83735; 85027

== ENCOUNTER → 2024-04-09 09:41 | Outpatient (REF) | payer MEDICARE, BC, SELFPAY ==
[2024-04-09 09:53] LABS: Hemoglobin 7.2 g/dL (13.0-18.0); Mean Corp Hgb Conc. 31.3 g/dL (33.0-37.0); Mean Corpuscular Hgb 26.3 pg (27.0-31.0); Mean Corpuscular Volume 83.9 fL (80.0-94.0); Mean Platelet Volume 10.8 fL (7.4-10.4); Platelet Count 168 10^3/uL (130-400); Red Blood Cell Count 2.74 10^6/uL (4.70-6.10); Red Cell Dist. Width 16.1 % (11.5-14.5); White Blood Cell Count 6.9 10^3/uL (4.8-10.8)
== END ==
LOC: OLABN 09:41
PROVIDERS: ATTENDING PHYSICIAN Student in an Organized Health Care Education/Training Program
DX: E11.21 Type 2 diabetes mellitus with diabetic nephropathy (principal)
CPT/HCPCS: 36415; 85027

== ENCOUNTER → 2024-04-13 12:53 | Outpatient (REF) | payer OTHER, MEDICARE, BC, SELFPAY ==
[2024-04-13 16:27] LABS: Hematocrit 22.7 % (39.0-52.0); Hemoglobin 7.2 g/dL (13.0-18.0); Mean Corp Hgb Conc. 31.7 g/dL (33.0-37.0); Mean Corpuscular Hgb 25.9 pg (27.0-31.0); Mean Corpuscular Volume 81.7 fL (80.0-94.0); Mean Platelet Volume 11.5 fL (7.4-10.4); Platelet Count 132 10^3/uL (130-400); Red Blood Cell Count 2.78 10^6/uL (4.70-6.10); Red Cell Dist. Width 16.1 % (11.5-14.5); White Blood Cell Count 6.2 10^3/uL (4.8-10.8)
[2024-04-13 16:55] LABS: Iron 44 ug/dl (49-181)
[2024-04-13 17:03] LABS: Percent Saturation 14 % (20-50); Total Iron Binding Capacity 309 ug/dl (261-462)
[2024-04-14 09:38] LABS: Glycohemoglobin (HgbA1c) 6.8 % (4.0-5.6)
== END ==
LOC: OLABN 12:53
PROVIDERS: ATTENDING PHYSICIAN Student in an Organized Health Care Education/Training Program
DX: D63.1 Anemia in chronic kidney disease (principal); D68.59 Other primary thrombophilia; E11.65 Type 2 diabetes mellitus with hyperglycemia
CPT/HCPCS: 83036; 83540; 83550; 85027

== ENCOUNTER → 2024-04-17 10:29 | Outpatient (REF) | payer OTHER, MEDICARE, BC, SELFPAY ==
[2024-04-17 10:56] LABS: Hematocrit 23.1 % (39.0-52.0); Hemoglobin 7.1 g/dL (13.0-18.0); Mean Corp Hgb Conc. 30.7 g/dL (33.0-37.0); Mean Corpuscular Hgb 26.1 pg (27.0-31.0); Mean Corpuscular Volume 84.9 fL (80.0-94.0); Mean Platelet Volume 10.7 fL (7.4-10.4); Platelet Count 136 10^3/uL (130-400); Red Blood Cell Count 2.72 10^6/uL (4.70-6.10); White Blood Cell Count 5.5 10^3/uL (4.8-10.8)
[2024-04-17 11:16] LABS: Blood Urea Nitrogen 55 mg/dl (9-20); Calcium 8.7 mg/dl (8.4-10.2); Carbon Dioxide 25 mmol/L (22-30); Chloride 100 mmol/L (98-107); Glucose 102 mg/dl (70-99); Potassium 3.9 mmol/L (3.5-5.1); Sodium 138 mmol/L (135-145); eGFR 17.41
== END ==
LOC: OLABN 10:29
PROVIDERS: ATTENDING PHYSICIAN Student in an Organized Health Care Education/Training Program
DX: N18.4 Chronic kidney disease, stage 4 (severe) (principal)
CPT/HCPCS: 36415; 80048; 85027

== ENCOUNTER → 2024-04-20 10:40 | Outpatient (REF) | payer OTHER, MEDICARE, BC, SELFPAY ==
[2024-04-20 11:23] LABS: Hematocrit 23.2 % (39.0-52.0); Hemoglobin 7.2 g/dL (13.0-18.0); Mean Corpuscular Hgb 26.3 pg (27.0-31.0); Mean Corpuscular Volume 84.7 fL (80.0-94.0); Mean Platelet Volume 10.7 fL (7.4-10.4); Platelet Count 161 10^3/uL (130-400); Red Blood Cell Count 2.74 10^6/uL (4.70-6.10); Red Cell Dist. Width 16.8 % (11.5-14.5); White Blood Cell Count 4.6 10^3/uL (4.8-10.8)
[2024-04-20 11:30] LABS: Blood Urea Nitrogen 42 mg/dl (9-20); Carbon Dioxide 27 mmol/L (22-30); Chloride 101 mmol/L (98-107); Glucose 101 mg/dl (70-99); Potassium 4.1 mmol/L (3.5-5.1); Sodium 141 mmol/L (135-145); eGFR 19.32
[2024-04-20 11:38] LABS: NT-proBNP 8390 pg/ml
== END ==
LOC: OLABN 10:40
PROVIDERS: ATTENDING PHYSICIAN Student in an Organized Health Care Education/Training Program
DX: N18.4 Chronic kidney disease, stage 4 (severe) (principal)
CPT/HCPCS: 36415; 80048; 83880; 85027

== ENCOUNTER 2024-04-22 15:34 | Outpatient (RCR) | payer MEDICARE, BC, SELFPAY ==
[2024-04-22 14:44] LABS: % Basophils 0.6 % (0-2); % Eosinophils 2.3 % (0-6); % Immature Granulocytes 0.2 % (0-0.5); % Lymphocytes 10.3 % (20.5-51.1); % Monocytes 9.2 % (1.7-9.3); % Neutrophils 77.4 % (42.2-75.2); Absolute Eosinophils 0.1 10^3/uL (0-0.7); Absolute Lymphocytes 0.5 10^3/uL (1.2-3.4); Absolute Monocytes 0.5 10^3/uL (0.1-0.6); Absolute Neutrophils 4.1 10^3/uL (1.4-6.5); Hematocrit 27.3 % (39.0-52.0); Hemoglobin 8.5 g/dL (13.0-18.0); Mean Corp Hgb Conc. 31.1 g/dL (33.0-37.0); Mean Corpuscular Hgb 25.6 pg (27.0-31.0); Mean Corpuscular Volume 82.2 fL (80.0-94.0); Mean Platelet Volume 10.8 fL (7.4-10.4); Nucleated Red Blood Cells % 0 % (-); Platelet Count 194 10^3/uL (130-400); Red Blood Cell Count 3.32 10^6/uL (4.70-6.10); Red Cell Dist. Width 17.2 % (11.5-14.5); Reticulocyte Count 2.8 % (0.4-2.8); White Blood Cell Count 5.2 10^3/uL (4.8-10.8)
[2024-04-22 14:56] LABS: Normal RBC Morphology No; Poikilocytosis 1+
[2024-04-22 14:57] LABS: Hypochromasia 1+; Microcytosis 3+
[2024-04-22 15:00] LABS: ALT (SGPT) 13 U/L (0-50); AST (SGOT) 16 U/L (17-59); Albumin 4.2 g/dl (3.5-5.0); Alkaline Phosphatase 96 U/L (38-126); Blood Urea Nitrogen 40 mg/dl (9-20); Calcium 9.2 mg/dl (8.4-10.2); Carbon Dioxide 28 mmol/L (22-30); Chloride 100 mmol/L (98-107); Glucose 118 mg/dl (70-99); Iron 38 ug/dl (49-181); LDH 217 U/L (120-246); Potassium 3.9 mmol/L (3.5-5.1); Sodium 140 mmol/L (135-145); Total Bilirubin 0.5 mg/dl (0.2-1.3); Total Protein 6.8 g/dl (6.3-8.2); eGFR 19.32
[2024-04-22 15:05] LABS: Erythrocyte Sed Rate 51 mm/hour (0-20)
[2024-04-22 15:09] LABS: Percent Saturation 10 % (20-50); Total Iron Binding Capacity 377 ug/dl (261-462)
[2024-04-22 15:17] LABS: Vitamin D, 25-OH*** 23.2 ng/mL (30-80)
[2024-04-22 15:35] LABS: Ferritin 50.5 ng/ml (17.9-464.0)
[2024-04-22 16:07] LABS: Folate 9.4 ng/ml (2.76-20); Vitamin B12 408 pg/ml (239-931)
[2024-04-24 19:59] LABS: Haptoglobin 252 mg/dL (30-200)
[2024-04-26 10:32] LABS: Albumin 3.68 g/dL (3.75-5.01); Alpha 1 Globulin 0.39 g/dL (0.19-0.46); Alpha 2 Globulin 0.93 g/dL (0.48-1.05); Free Kappa Light Chains,Quant 85.84 mg/L (3.30-19.40); Free Lambda Light Chains,Quant 49.64 mg/L (5.71-26.30); IgA 234 mg/dL (68-408); IgG 791 mg/dL (768-1632); IgM 48 mg/dL (35-263); Immunofixation Electrophoresis IFE Done; Kappa/Lambda Fr Light Ratio 1.73 (0.26-1.65); Total Protein-Electrophoresis 6.6 g/dL (6.3-8.2)
== END 2024-05-14 23:59 | disposition home or self-care (01) ==
LOC: OID 15:34
PROVIDERS: ATTENDING PHYSICIAN Internal Medicine Hematology & Oncology
DX: I50.20 Unspecified systolic (congestive) heart failure (principal); D64.9 Anemia, unspecified; I48.11 Longstanding persistent atrial fibrillation; E11.22 Type 2 diabetes mellitus with diabetic chronic kidney disease; I13.0 Hypertensive heart and chronic kidney disease with heart failure and stage 1 through stage 4 chronic kidney disease, or unspecified chronic kidney disease; D63.1 Anemia in chronic kidney disease; N18.30 Chronic kidney disease, stage 3 unspecified; J96.11 Chronic respiratory failure with hypoxia; J44.9 Chronic obstructive pulmonary disease, unspecified; R53.83 Other fatigue; Z79.01 Long term (current) use of anticoagulants; Z95.0 Presence of cardiac pacemaker; N18.4 Chronic kidney disease, stage 4 (severe)
CPT/HCPCS: 36415; 80048; 80053; 82306; 82607; 82728; 82746; 82784; 83010; 83521; 83540; 83550; 83615; 83880; 84155; 84165; 85025; 85027; 85045; 85652; 86140; 86334

== ENCOUNTER → 2024-04-28 11:31 | Outpatient (REF) | payer MEDICARE, BC, SELFPAY ==
[2024-04-28 12:05] LABS: Hematocrit 23.9 % (39.0-52.0); Hemoglobin 7.4 g/dL (13.0-18.0); Mean Corpuscular Hgb 25.8 pg (27.0-31.0); Mean Corpuscular Volume 83.3 fL (80.0-94.0); Mean Platelet Volume 11.2 fL (7.4-10.4); Platelet Count 171 10^3/uL (130-400); Red Blood Cell Count 2.87 10^6/uL (4.70-6.10); Red Cell Dist. Width 17.3 % (11.5-14.5); White Blood Cell Count 5.2 10^3/uL (4.8-10.8)
== END ==
LOC: OLABN 11:31
PROVIDERS: ATTENDING PHYSICIAN Student in an Organized Health Care Education/Training Program
DX: N18.4 Chronic kidney disease, stage 4 (severe) (principal)
CPT/HCPCS: 36415; 85027

== ENCOUNTER → 2024-05-06 09:20 | Outpatient (REF) | payer MEDICARE, BC, SELFPAY ==
[2024-05-06 10:48] LABS: % Basophils 0.5 % (0-2); % Eosinophils 1.7 % (0-6); % Immature Granulocytes 0.3 % (0-0.5); % Lymphocytes 15.1 % (20.5-51.1); % Monocytes 10.8 % (1.7-9.3); % Neutrophils 71.6 % (42.2-75.2); Absolute Eosinophils 0.1 10^3/uL (0-0.7); Absolute Lymphocytes 0.9 10^3/uL (1.2-3.4); Absolute Monocytes 0.6 10^3/uL (0.1-0.6); Absolute Neutrophils 4.2 10^3/uL (1.4-6.5); Hemoglobin 7.1 g/dL (13.0-18.0); Mean Corp Hgb Conc. 30.9 g/dL (33.0-37.0); Mean Corpuscular Hgb 25.4 pg (27.0-31.0); Mean Corpuscular Volume 82.4 fL (80.0-94.0); Mean Platelet Volume 10.6 fL (7.4-10.4); Nucleated Red Blood Cells % 0 % (-); Platelet Count 177 10^3/uL (130-400); Red Blood Cell Count 2.79 10^6/uL (4.70-6.10); Red Cell Dist. Width 16.9 % (11.5-14.5); White Blood Cell Count 5.8 10^3/uL (4.8-10.8)
[2024-05-06 11:24] LABS: Albumin 3.3 g/dl (3.5-5.0); Blood Urea Nitrogen 43 mg/dl (9-20); Calcium 8.7 mg/dl (8.4-10.2); Carbon Dioxide 26 mmol/L (22-30); Chloride 102 mmol/L (98-107); Glucose 110 mg/dl (70-99); Magnesium 2.1 mg/dl (1.6-2.3); Potassium 4.2 mmol/L (3.5-5.1); Sodium 139 mmol/L (135-145); eGFR 18.64
[2024-05-06 11:57] LABS: Intact PTH 273.3 pg/ml (13.6-85.8)
[2024-05-06 13:10] LABS: Urine Albumin Trace (Neg - Trace); Urine Bilirubin Negative (Negative); Urine Character Clear (Clear); Urine Color Yellow; Urine Glucose Negative (Negative); Urine Ketone Negative (Negative); Urine Leukocyte Negative (Negative); Urine Nitrite Negative (Negative); Urine Occult Blood Negative (Negative); Urine Urobilinogen Negative (Neg - 1+)
[2024-05-06 13:21] LABS: Uric Acid 9.9 mg/dl (3.5-8.5)
[2024-05-06 13:58] LABS: Protein/creatinine Ratio 0.6; Urine Protein 34 mg/dl
== END ==
LOC: OLABN 09:20
PROVIDERS: ATTENDING PHYSICIAN Student in an Organized Health Care Education/Training Program
DX: I10 Essential (primary) hypertension (principal); N18.4 Chronic kidney disease, stage 4 (severe); E83.51 Hypocalcemia; E03.9 Hypothyroidism, unspecified
CPT/HCPCS: 36415; 80069; 81003; 82570; 83735; 83970; 84156; 84550; 85025

== ENCOUNTER → 2024-05-08 15:38 | Outpatient (REF) | payer MEDICARE, BC, SELFPAY ==
[2024-05-08 11:06] LABS: % Basophils 0.7 % (0-2); % Eosinophils 1.8 % (0-6); % Immature Granulocytes 0.4 % (0-0.5); % Lymphocytes 12.1 % (20.5-51.1); % Monocytes 10.8 % (1.7-9.3); % Neutrophils 74.2 % (42.2-75.2); Absolute Eosinophils 0.1 10^3/uL (0-0.7); Absolute Lymphocytes 0.7 10^3/uL (1.2-3.4); Absolute Monocytes 0.6 10^3/uL (0.1-0.6); Hematocrit 25.6 % (39.0-52.0); Hemoglobin 7.7 g/dL (13.0-18.0); Mean Corp Hgb Conc. 30.1 g/dL (33.0-37.0); Mean Corpuscular Hgb 25.6 pg (27.0-31.0); Mean Platelet Volume 10.4 fL (7.4-10.4); Nucleated Red Blood Cells % 0 % (-); Platelet Count 177 10^3/uL (130-400); Red Blood Cell Count 3.01 10^6/uL (4.70-6.10); Red Cell Dist. Width 16.8 % (11.5-14.5); White Blood Cell Count 5.5 10^3/uL (4.8-10.8)
== END ==
LOC: OIDL 15:38
PROVIDERS: ATTENDING PHYSICIAN Internal Medicine Hematology & Oncology
DX: D64.9 Anemia, unspecified (principal); D63.1 Anemia in chronic kidney disease; N18.30 Chronic kidney disease, stage 3 unspecified; E56.9 Vitamin deficiency, unspecified; R53.83 Other fatigue
CPT/HCPCS: 85025

== ENCOUNTER → 2024-05-13 12:01 | Outpatient (REF) | payer MEDICARE, BC, SELFPAY ==
[2024-05-13 12:32] LABS: % Basophils 0.6 % (0-2); % Eosinophils 2.2 % (0-6); % Immature Granulocytes 0.3 % (0-0.5); % Lymphocytes 11.5 % (20.5-51.1); % Monocytes 11.8 % (1.7-9.3); % Neutrophils 73.6 % (42.2-75.2); Absolute Eosinophils 0.2 10^3/uL (0-0.7); Absolute Lymphocytes 0.8 10^3/uL (1.2-3.4); Absolute Monocytes 0.8 10^3/uL (0.1-0.6); Absolute Neutrophils 5.3 10^3/uL (1.4-6.5); Hematocrit 24.6 % (39.0-52.0); Hemoglobin 7.6 g/dL (13.0-18.0); Mean Corp Hgb Conc. 30.9 g/dL (33.0-37.0); Mean Corpuscular Volume 87.5 fL (80.0-94.0); Mean Platelet Volume 11.4 fL (7.4-10.4); Nucleated Red Blood Cells % 0 % (-); Platelet Count 160 10^3/uL (130-400); Red Blood Cell Count 2.81 10^6/uL (4.70-6.10); White Blood Cell Count 7.1 10^3/uL (4.8-10.8)
[2024-05-13 12:45] LABS: ALT (SGPT) 16 U/L (0-50); AST (SGOT) 14 U/L (17-59); Albumin 3.3 g/dl (3.5-5.0); Alkaline Phosphatase 83 U/L (38-126); Blood Urea Nitrogen 50 mg/dl (9-20); Calcium 8.3 mg/dl (8.4-10.2); Carbon Dioxide 27 mmol/L (22-30); Chloride 99 mmol/L (98-107); Glucose 99 mg/dl (70-99); Potassium 4.2 mmol/L (3.5-5.1); Sodium 137 mmol/L (135-145); Total Bilirubin 0.3 mg/dl (0.2-1.3); Total Protein 5.4 g/dl (6.3-8.2); Uric Acid 11.2 mg/dl (3.5-8.5); eGFR 17.41
[2024-05-13 13:10] LABS: NT-proBNP 7820 pg/ml
== END ==
LOC: OLABN 12:01
PROVIDERS: ATTENDING PHYSICIAN Student in an Organized Health Care Education/Training Program
DX: N18.4 Chronic kidney disease, stage 4 (severe) (principal); R19.7 Diarrhea, unspecified
CPT/HCPCS: 36415; 80053; 83880; 84550; 85025

== ENCOUNTER → 2024-05-15 11:13 | Outpatient (REF) | payer MEDICARE, BC, SELFPAY ==
[2024-05-15 12:18] LABS: % Basophils 0.6 % (0-2); % Eosinophils 2.9 % (0-6); % Immature Granulocytes 0.4 % (0-0.5); % Lymphocytes 10.9 % (20.5-51.1); % Monocytes 10.2 % (1.7-9.3); Absolute Eosinophils 0.2 10^3/uL (0-0.7); Absolute Lymphocytes 0.8 10^3/uL (1.2-3.4); Absolute Monocytes 0.7 10^3/uL (0.1-0.6); Absolute Neutrophils 5.4 10^3/uL (1.4-6.5); Hematocrit 25.6 % (39.0-52.0); Hemoglobin 7.7 g/dL (13.0-18.0); Mean Corp Hgb Conc. 30.1 g/dL (33.0-37.0); Mean Corpuscular Hgb 26.8 pg (27.0-31.0); Mean Corpuscular Volume 89.2 fL (80.0-94.0); Mean Platelet Volume 10.9 fL (7.4-10.4); Nucleated Red Blood Cells % 0 % (-); Platelet Count 155 10^3/uL (130-400); Red Blood Cell Count 2.87 10^6/uL (4.70-6.10); Red Cell Dist. Width 19.4 % (11.5-14.5); White Blood Cell Count 7.1 10^3/uL (4.8-10.8)
[2024-05-15 12:35] LABS: Blood Urea Nitrogen 46 mg/dl (9-20); Calcium 8.5 mg/dl (8.4-10.2); Carbon Dioxide 27 mmol/L (22-30); Chloride 100 mmol/L (98-107); Glucose 123 mg/dl (70-99); Sodium 138 mmol/L (135-145); eGFR 20.05
== END ==
LOC: OLABN 11:13
PROVIDERS: ATTENDING PHYSICIAN Student in an Organized Health Care Education/Training Program
DX: N18.4 Chronic kidney disease, stage 4 (severe) (principal)
CPT/HCPCS: 36415; 80048; 85025

== ENCOUNTER → 2024-06-19 08:13 | Outpatient (REF) | payer MEDICARE, BC, SELFPAY ==
[2024-06-19 09:40] LABS: % Basophils 0.5 % (0-2); % Eosinophils 0.8 % (0-6); % Immature Granulocytes 0.4 % (0-0.5); % Lymphocytes 9.1 % (20.5-51.1); % Monocytes 11.8 % (1.7-9.3); % Neutrophils 77.4 % (42.2-75.2); Absolute Eosinophils 0.1 10^3/uL (0-0.7); Absolute Lymphocytes 0.7 10^3/uL (1.2-3.4); Absolute Monocytes 0.9 10^3/uL (0.1-0.6); Absolute Neutrophils 6.2 10^3/uL (1.4-6.5); Hematocrit 28.6 % (39.0-52.0); Hemoglobin 8.5 g/dL (13.0-18.0); Mean Corp Hgb Conc. 29.7 g/dL (33.0-37.0); Mean Corpuscular Hgb 26.8 pg (27.0-31.0); Mean Corpuscular Volume 90.2 fL (80.0-94.0); Mean Platelet Volume 10.2 fL (7.4-10.4); Nucleated Red Blood Cells % 0 % (-); Platelet Count 182 10^3/uL (130-400); Red Blood Cell Count 3.17 10^6/uL (4.70-6.10); Red Cell Dist. Width 18.1 % (11.5-14.5); White Blood Cell Count 7.9 10^3/uL (4.8-10.8)
[2024-06-19 09:43] LABS: Iron 28 ug/dl (49-181)
[2024-06-19 09:53] LABS: Percent Saturation 11 % (20-50); Total Iron Binding Capacity 239 ug/dl (261-462)
[2024-06-19 18:17] LABS: Ferritin 83.2 ng/ml (17.9-464.0)
[2024-06-21 02:57] LABS: Transferrin 171 mg/dL (200-360)
== END ==
LOC: OLABN 08:13
PROVIDERS: ATTENDING PHYSICIAN Student in an Organized Health Care Education/Training Program
DX: D63.1 Anemia in chronic kidney disease (principal); N18.4 Chronic kidney disease, stage 4 (severe)
CPT/HCPCS: 36415; 82728; 83540; 83550; 84466; 85025

== ENCOUNTER → 2024-06-25 10:15 | Outpatient (REF) | payer MEDICARE, BC, SELFPAY ==
[2024-06-25 11:55] LABS: ALT (SGPT) 12 U/L (0-50); AST (SGOT) 16 U/L (17-59); Albumin 3.2 g/dl (3.5-5.0); Alkaline Phosphatase 63 U/L (38-126); Blood Urea Nitrogen 42 mg/dl (9-20); Calcium 8.4 mg/dl (8.4-10.2); Carbon Dioxide 30 mmol/L (22-30); Chloride 100 mmol/L (98-107); Glucose 95 mg/dl (70-99); Potassium 3.9 mmol/L (3.5-5.1); Sodium 137 mmol/L (135-145); Total Bilirubin 0.3 mg/dl (0.2-1.3); Total Protein 5.5 g/dl (6.3-8.2); eGFR 18.01
[2024-06-25 12:42] LABS: NT-proBNP 4170 pg/ml
== END ==
LOC: OLABN 10:15
PROVIDERS: ATTENDING PHYSICIAN Student in an Organized Health Care Education/Training Program
DX: N18.4 Chronic kidney disease, stage 4 (severe) (principal)
CPT/HCPCS: 36415; 80053; 83880

== ENCOUNTER → 2024-06-29 14:15 | Outpatient (REF) | payer MEDICARE, BC, SELFPAY | LOC: OLABN 14:15 | PROVIDERS: ATTENDING PHYSICIAN Student in an Organized Health Care Education/Training Program | DX: A04.72 Enterocolitis due to Clostridium difficile, not specified as recurrent (principal) | CPT/HCPCS: 87045; 87046; 87324; 87427; 87449 ==

== ENCOUNTER → 2024-09-15 09:52 | Outpatient (REF) | payer MEDICARE, BC, SELFPAY ==
[2024-09-15 10:57] LABS: Iron 33 ug/dl (49-181)
[2024-09-15 11:07] LABS: Percent Saturation 10 % (20-50); Total Iron Binding Capacity 320 ug/dl (261-462)
[2024-09-15 11:31] LABS: Ferritin 29.4 ng/ml (17.9-464.0)
== END ==
LOC: OLABN 09:52
PROVIDERS: ATTENDING PHYSICIAN Student in an Organized Health Care Education/Training Program
DX: D64.9 Anemia, unspecified (principal)
CPT/HCPCS: 36415; 82728; 83540; 83550

== ENCOUNTER → 2024-09-24 09:24 | Outpatient (REF) | payer MEDICARE, BC, SELFPAY ==
[2024-09-24 11:46] LABS: % Basophils 0.8 % (0-2); % Eosinophils 2.6 % (0-6); % Immature Granulocytes 0.2 % (0-0.5); % Lymphocytes 13.1 % (20.5-51.1); % Monocytes 13.4 % (1.7-9.3); % Neutrophils 69.9 % (42.2-75.2); Absolute Basophils 0.1 10^3/uL (0-0.2); Absolute Eosinophils 0.2 10^3/uL (0-0.7); Absolute Lymphocytes 0.8 10^3/uL (1.2-3.4); Absolute Monocytes 0.8 10^3/uL (0.1-0.6); Absolute Neutrophils 4.2 10^3/uL (1.4-6.5); Hemoglobin 7.2 g/dL (13.0-18.0); Mean Corpuscular Volume 86.6 fL (80.0-94.0); Mean Platelet Volume 11.1 fL (7.4-10.4); Nucleated Red Blood Cells % 0 % (-); Platelet Count 153 10^3/uL (130-400); Red Blood Cell Count 2.77 10^6/uL (4.70-6.10)
[2024-09-24 12:00] LABS: Blood Urea Nitrogen 50 mg/dl (9-20); Calcium 8.9 mg/dl (8.4-10.2); Carbon Dioxide 26 mmol/L (22-30); Chloride 102 mmol/L (98-107); Glucose 149 mg/dl (70-99); Potassium 3.9 mmol/L (3.5-5.1); Sodium 137 mmol/L (135-145); eGFR 18.01
== END ==
LOC: OLABN 09:24
PROVIDERS: ATTENDING PHYSICIAN Student in an Organized Health Care Education/Training Program
DX: N18.4 Chronic kidney disease, stage 4 (severe) (principal)
CPT/HCPCS: 36415; 80048; 85025

== ENCOUNTER 2024-09-26 13:41 | Emergency (ER) | payer MEDICARE, BC, SELFPAY ==
--- NOTE | 2024-09-26 13:54 | ED.GENMED ---
History of Present Illness
General
Chief Complaint: Abnormal Lab Value
Source: patient
Exam Limitations: none
Time Seen by Provider: 09/26/24 13:45
Nursing documentation reviewed up to this point in time: agreed with
History of Present Illness
History of Present Illness:
69 y/o M with h/o afib on eliquis, CHF on bumex 4 mg BID
here with outpatient labs showing hg of 6.9 down from 7.2 on 09/24
these are likely through [facility]
pt says he has CKD
he has never been transfused to his knowledge
he has had smoe fatigue and dyspnea on exertion but he wasn't too aware of feeling that badly
he has not had any rectal bleeding, blood in urine, blood in gums, syncope, vomiting.
pt has h/o HF with ef 45%
he had chronic edema in his legs, doesn't feel like this is any worse
Past History
Past History
ED Past Medical History: CAD, CHF, HTN and Hypercholesterolemia
ED Past Surgical History: Cardiac (pacer)
Review of Systems
Review of Systems
Allergies reviewed?: Yes
All Other Systems: Not applicable
Phy Exam
Physical Exam
Physical Exam:
GENERAL: Alert , in no apparent distress
EYE: pupils equal and reactive pale conjunciva
NECK: Supple
ENT: o/p clr, mmm.
CARDIAC: Regular rate and rhythm .moderate B/L le pitting edema, symmetric
LUNGS: Clear breath sounds bilaterally, no acute respiratory distress, no wheezes/rales/rhonchi
ABDOMEN: Soft, without focal tenderness, no r/g, no cvat, normal bowel sounds
TRACE heme POS brownish stool
NEUROLOGICAL: Alert and oriented, no focal neuro deficits
SKIN: Warm and dry, skin intact. pale
MUSCULOSKELETAL: moderate edema, well perfused. neg archie's sign
PSYCH: Normal and appropriate interaction.
Course
Orders/Labs/Results
Orders:
Orders
09/26/24 14:01
CR Chest - 2 Views Urgent
Comment:
Reason For Exam: anemia
09/26/24 14:13
Type And Crossmatch [Type+Screen] Urgent
Complete Blood Count/With Diff Urgent
Comprehensive Metabolic Panel Urgent
Ferritin Urgent
Iron Urgent
NT-proBNP Urgent
TIBC [Total Iron Binding] Urgent
09/26/24 14:23
Pantoprazole [Protonix IV] 40 mg IV NOW STA
09/26/24 14:58
ABO2 Routine
BBK Wristband Number:
Associate notified that ABO2 has been ordered: [id number]
Date: 09/26/24
Time: 14:46
Tufter Operator ID: [id number]
Abnormal Lab Results
09/26/24
14:13
RBC 3.13 L 10^6/uL
(4.70-6.10)
Hgb 8.2 L g/dL
(13.0-18.0)
Hct 26.2 L %
(39.0-52.0)
MCH 26.2 L pg
(27.0-31.0)
MCHC 31.3 L g/dL
(33.0-37.0)
RDW 15.6 H %
(11.5-14.5)
MPV 10.8 H fL
(7.4-10.4)
Absolute Lymphs (auto) 0.6 L 10^3/uL
(1.2-3.4)
Absolute Monos (auto) 0.7 H 10^3/uL
(0.1-0.6)
Neutrophils % 75.9 H %
(42.2-75.2)
Lymphocytes % 9.6 L %
(20.5-51.1)
Monocytes % 10.6 H %
(1.7-9.3)
BUN 40 H mg/dl
(9-20)
Creatinine 2.9 H mg/dL
(0.7-1.3)
Glucose 111 H mg/dl
(70-99)
Iron < 20 L ug/dl
(49-181)
AST 14 L U/L
(17-59)
09/26/24 14:13
09/26/24 14:13
Vital Signs
Initial and Last Documented VS:
Initial Vital Signs
Temp Pulse Resp BP Pulse Ox
36.4 C 63 18 163/83 98
09/26/24 13:56 09/26/24 13:56 09/26/24 13:56 09/26/24 13:56 09/26/24 13:56
Last Documented Vital Signs
Temp Pulse Resp BP Pulse Ox
36.4 C 70 28 154/80 90
09/26/24 13:56 09/26/24 14:30 09/26/24 14:30 09/26/24 16:00 09/26/24 16:45
MDM/Problems Addressed
Differential Diagnosis Includes:
anemia, GI bleed, chronic kidney disease
MDM/Problems Addressed:
69 y/o M with h/o afib on eliquis s/p pacer, CKD stage IV, chf on bumex
here because of low hg outpatient this am
has bene having basleine low hg 7s for a while, thought to be due to chronic renal disease
pt has not had GI evla/w.u ad says he refuses colonoscopy any more
no bleeing at home
on leiquis
here without any sypmtoms, says he feels no different than normal; mild dyspnea with walking is his basleine
no o2 requirement
no cough
no worsening edema
on bumex
repeat hg is 8 hree from 6.9
given his tenuous CHF, i wouldn't transfuse him at this number for risk of worsneing his chf
he does have some inc intersitital markings on cxr and bnp 5000 but has had worse bnps and espinoza'snt feel lcinically sob
i psoke with dr. walker from heme/onc who was aware of him and reocmmends that if pt feels comfrotable going home, to f/u with him as outpatient; agree holdingtransfusion
scheulded for iron
also aware that he has trace heme pos stools
will push for GI eval
pt comfortable with this
ed attending agrees
*Critical Care Note
Total Time (30-74mins, 75-104mins- exclusive of procedures): Not Applicable
ED Attending Note
-
Portions of this chart may have been created with voice recognition software.� Occasional wrong word or��sound alike� substitutions may have occurred due to the inherent limitations of voice recognition software.
Discharge Plan
Departure
Patient Disposition: Home (Routine Discharge)
Date of Disposition: 09/26/24
Time of Disposition: 17:16
Admit to: Telemetry
Patient with high blood pressure during this ER visit?: Yes
Condition: Fair
Covid-19: Not Applicable
Discharge Problem:
Anemia, CHF (congestive heart failure)
Instructions: Anemia of inflammation (anemia of chronic disease), Heart failure in adults - Discharge instructions
Prescriptions:
No Action
acetaminophen [Tylenol] 325 mg Tablet
650 mg PO Q4HPRN PRN (Reason: mild pain/fever)
trazodone 50 mg Tablet
50 mg PO HS
amiodarone 200 mg Tablet
200 mg PO DAILY
isosorbide mononitrate 30 mg Tablet Extended Release 24 Hr
30 mg PO Q12H
aspirin 81 mg Tablet,Delayed Release (Dr/Ec)
81 mg PO DAILY
sodium bicarbonate 650 mg Tablet
650 mg PO BID
ezetimibe [Zetia] 10 mg Tablet
10 mg PO QPM
Eliquis 5 mg Tablet
5 mg PO BID
hydralazine 50 mg Tablet
50 mg PO TID 30 Days Qty: 90 0RF
carvedilol 12.5 mg Tablet
12.5 mg PO BID 30 Days Qty: 60 0RF
amlodipine 5 mg Tablet
5 mg PO DAILY 30 Days Qty: 30 0RF
calcium carbonate-vitamin D3 [Calcium 500 + D] 500 mg-5 mcg (200 unit) Tablet
1 tab PO BID
levothyroxine 175 mcg Tablet
175 mcg PO DAILY@0600
potassium chloride 10 mEq Capsule, Extended Release
40 meq PO DAILY
ondansetron HCl 4 mg Tablet
4 mg PO Q6HPRN PRN (Reason: nausea/vomiting)
ascorbic acid (vitamin C) 500 mg Tablet
500 mg PO MOWEFR@0830,1830
furosemide 80 mg Tablet
80 mg PO BID
bisacodyl 10 mg Suppository
10 mg AL [id number] PRN (Reason: no BM and lactulose is ineffective)
nitroglycerin 0.4 mg Tablet, Sublingual
0.4 mg SUBLINGUAL [id number] PRN (Reason: chest pain/angina)
ergocalciferol (vitamin D2) 1,250 mcg (50,000 unit) Capsule
1,250 mcg PO TU
calcitriol 0.25 mcg Capsule
0.25 mcg PO MOWEFR
lactulose 10 gram/15 mL Solution
20 g PO HSPRN PRN (Reason: constipation)
cholecalciferol (vitamin D3) [Vitamin D3] 25 mcg (1,000 unit) Tablet
25 mcg PO DAILY
ferrous gluconate 324 mg (38 mg iron) Tablet
324 mg PO MOWEFR
bumetanide 2 mg tablet
2 mg PO DAILYPRN PRN (Reason: gain of 2 pounds in 2 days or 5 pounds in 1 week)
lidocaine 4 % Cream
1 applic TOPICAL DAILY
Referrals:
Mj Peck DO [Family Provider] -
Wanda Walker MD [Active] - Follow up in 1 week
Walter Angel MD [Active] - Follow up in 1 week
Activity Restrictions/Additional Instructions:
YOUR HEMOGLOBIN WAS BETTER TODAY THAN THE BLOOD DRAW FROM [facility]
I SPOKE WITH BUSINESS PLANNING MANAGER DR. WALKER WHO WILL MAKE SURE YOU FOLLOW UP FOR IRON INFUSIONS
BUT YOU ALSO HAD TRACE BLOOD IN YOUR STOOL AND SHOULD BE SEEN BY GI
PLEASE WATCH THIS CLOSELY
YOUR CHEST XRAY SHOWED SOME FLUID IN YOUR LUNGS, SO CONTINUE THE BUMEX PRESCRIBED
RETURN FOR : WORSENING SHORNTESS OF BREATH, BLEEDING FROM ANYWHERE, PASSING OUT, WORSE FATIGUE, OR ANY CONCERNS.
Interventions
Interventions:
*Risk Screen - Suicide Last Done: 09/26/24 14:08
*General Assessment Last Done: 09/26/24 14:07
*Neglect/Abuse Screening Last Done: 09/26/24 14:07
*ED- Fall Risk Assessment Last Done: 09/26/24 14:07
*ED COVID-19 Vaccine History Last Done: 09/26/24 14:01
*Nursing Disposition Last Done: 09/26/24 17:31
Discharge Date and Time
Discharge Date/Time: 09/26/24 17:35
Print Language: SLOVENIAN
[2024-09-26 13:56] VITALS: BP 163/83
[2024-09-26 14:00] VITALS: BMI 34.2
[2024-09-26 14:37] LABS: % Basophils 0.7 % (0-2); % Eosinophils 2.8 % (0-6); % Immature Granulocytes 0.4 % (0-0.5); % Lymphocytes 9.6 % (20.5-51.1); % Monocytes 10.6 % (1.7-9.3); % Neutrophils 75.9 % (42.2-75.2); Absolute Basophils 0.1 10^3/uL (0-0.2); Absolute Eosinophils 0.2 10^3/uL (0-0.7); Absolute Lymphocytes 0.6 10^3/uL (1.2-3.4); Absolute Monocytes 0.7 10^3/uL (0.1-0.6); Absolute Neutrophils 5.1 10^3/uL (1.4-6.5); Hematocrit 26.2 % (39.0-52.0); Hemoglobin 8.2 g/dL (13.0-18.0); Mean Corp Hgb Conc. 31.3 g/dL (33.0-37.0); Mean Corpuscular Hgb 26.2 pg (27.0-31.0); Mean Corpuscular Volume 83.7 fL (80.0-94.0); Mean Platelet Volume 10.8 fL (7.4-10.4); Nucleated Red Blood Cells % 0 % (-); Platelet Count 171 10^3/uL (130-400); Red Blood Cell Count 3.13 10^6/uL (4.70-6.10); Red Cell Dist. Width 15.6 % (11.5-14.5); White Blood Cell Count 6.7 10^3/uL (4.8-10.8)
[2024-09-26] MEDS: PROTONIX IV 40 MG IV (14:53)
[2024-09-26 14:57] LABS: ALT (SGPT) 11 U/L (0-50); AST (SGOT) 14 U/L (17-59); Albumin 3.9 g/dl (3.5-5.0); Alkaline Phosphatase 83 U/L (38-126); Blood Urea Nitrogen 40 mg/dl (9-20); Carbon Dioxide 24 mmol/L (22-30); Chloride 102 mmol/L (98-107); Estimated Creatinine Clearance 34 ml/min; Glucose 111 mg/dl (70-99); Potassium 4.1 mmol/L (3.5-5.1); Sodium 136 mmol/L (135-145); Total Bilirubin 0.5 mg/dl (0.2-1.3); Total Protein 6.3 g/dl (6.3-8.2); eGFR 22.56
[2024-09-26 15:00] VITALS: BP 158/82
[2024-09-26 15:02] LABS: Iron < 20 ug/dl (49-181)
[2024-09-26 15:06] LABS: NT-proBNP 5350 pg/ml; Total Iron Binding Capacity 374 ug/dl (261-462)
[2024-09-26 15:32] LABS: Ferritin 30.6 ng/ml (17.9-464.0)
[2024-09-26 16:00] VITALS: BP 154/80
== END 2024-09-26 17:35 | disposition home or self-care (01) ==
LOC: EMR 13:41
PROVIDERS: Physician Assistant; EMERGENCY PHYSICIAN Emergency Medicine; FAMILY PHYSICIAN Student in an Organized Health Care Education/Training Program
DX: D64.9 Anemia, unspecified (principal); I50.9 Heart failure, unspecified; R53.83 Other fatigue; I13.0 Hypertensive heart and chronic kidney disease with heart failure and stage 1 through stage 4 chronic kidney disease, or unspecified chronic kidney disease; N18.4 Chronic kidney disease, stage 4 (severe); I48.91 Unspecified atrial fibrillation; Z79.01 Long term (current) use of anticoagulants; I25.10 Atherosclerotic heart disease of native coronary artery without angina pectoris; E78.00 Pure hypercholesterolemia, unspecified
CPT/HCPCS: 99283; 96374; 36415; 71046; 80053; 82728; 83540; 83550; 83880; 85025; 86850; 86900; 86901

== ENCOUNTER → 2024-10-02 09:30 | Outpatient (REF) | payer MEDICARE, BC, SELFPAY | LOC: OLABN 09:30 | PROVIDERS: ATTENDING PHYSICIAN Student in an Organized Health Care Education/Training Program | DX: K92.2 Gastrointestinal hemorrhage, unspecified (principal) | CPT/HCPCS: 36415; 82272 ==

== ENCOUNTER → 2024-10-06 21:00 | Outpatient (REF) | payer MEDICARE, BC, SELFPAY | LOC: OLABN 21:00 | PROVIDERS: ATTENDING PHYSICIAN Student in an Organized Health Care Education/Training Program | DX: R19.5 Other fecal abnormalities (principal) | CPT/HCPCS: 82272 ==

== ENCOUNTER → 2024-10-13 12:01 | Outpatient (REF) | payer MEDICARE, BC, SELFPAY ==
[2024-10-13 12:22] LABS: % Basophils 0.8 % (0-2); % Immature Granulocytes 0.2 % (0-0.5); Absolute Basophils 0.1 10^3/uL (0-0.2); Absolute Eosinophils 0.2 10^3/uL (0-0.7); Absolute Monocytes 0.8 10^3/uL (0.1-0.6); Absolute Neutrophils 4.5 10^3/uL (1.4-6.5); Hematocrit 23.1 % (39.0-52.0); Mean Corp Hgb Conc. 30.3 g/dL (33.0-37.0); Mean Corpuscular Hgb 25.7 pg (27.0-31.0); Mean Corpuscular Volume 84.9 fL (80.0-94.0); Mean Platelet Volume 10.9 fL (7.4-10.4); Nucleated Red Blood Cells % 0 % (-); Platelet Count 164 10^3/uL (130-400); Red Blood Cell Count 2.72 10^6/uL (4.70-6.10); Red Cell Dist. Width 16.9 % (11.5-14.5); White Blood Cell Count 6.6 10^3/uL (4.8-10.8)
== END ==
LOC: OLABN 12:01
PROVIDERS: ATTENDING PHYSICIAN Student in an Organized Health Care Education/Training Program
DX: D50.8 Other iron deficiency anemias (principal)
CPT/HCPCS: 36415; 85025

== ENCOUNTER 2024-10-15 14:37 | Emergency (ER) | payer MEDICARE, BC, OTHER, SELFPAY ==
[2024-10-15] VITALS (7 sets, daily range): BP systolic 134–175; BP diastolic 66–116; BMI 32.0
[2024-10-15 14:53] LABS: % Basophils 0.9 % (0-2); % Eosinophils 2.7 % (0-6); % Immature Granulocytes 0.1 % (0-0.5); % Monocytes 10.1 % (1.7-9.3); % Neutrophils 76.2 % (42.2-75.2); Absolute Basophils 0.1 10^3/uL (0-0.2); Absolute Eosinophils 0.2 10^3/uL (0-0.7); Absolute Lymphocytes 0.7 10^3/uL (1.2-3.4); Absolute Monocytes 0.7 10^3/uL (0.1-0.6); Absolute Neutrophils 5.3 10^3/uL (1.4-6.5); Hematocrit 26.5 % (39.0-52.0); Mean Corp Hgb Conc. 30.2 g/dL (33.0-37.0); Mean Corpuscular Hgb 25.2 pg (27.0-31.0); Mean Corpuscular Volume 83.3 fL (80.0-94.0); Mean Platelet Volume 10.1 fL (7.4-10.4); Nucleated Red Blood Cells % 0 % (-); Platelet Count 162 10^3/uL (130-400); Red Blood Cell Count 3.18 10^6/uL (4.70-6.10); Red Cell Dist. Width 16.3 % (11.5-14.5)
[2024-10-15 15:06] LABS: ALT (SGPT) 11 U/L (0-50); AST (SGOT) 14 U/L (17-59); Albumin 3.7 g/dl (3.5-5.0); Alkaline Phosphatase 86 U/L (38-126); Blood Urea Nitrogen 37 mg/dl (9-20); Calcium 9.1 mg/dl (8.4-10.2); Carbon Dioxide 30 mmol/L (22-30); Chloride 102 mmol/L (98-107); Estimated Creatinine Clearance 34 ml/min; Glucose 152 mg/dl (70-99); Potassium 3.7 mmol/L (3.5-5.1); Sodium 140 mmol/L (135-145); Total Bilirubin 0.4 mg/dl (0.2-1.3); Total Protein 6.1 g/dl (6.3-8.2); eGFR 23.53
--- NOTE | 2024-10-15 15:30 | ED.GENMED ---
History of Present Illness
General
Chief Complaint: Abnormal Lab Value
Source: patient and ambulance crew
Exam Limitations: none
Time Seen by Provider: 10/15/24 15:13
Nursing documentation reviewed up to this point in time: agreed with
History of Present Illness
History of Present Illness:
69-year-old male presents emergency department due to low hemoglobin. He had blood drawn at 5 AM this morning, and was told it was 6.7, and sent him to the emergency department. He denies any rectal bleeding. He has a history of anemia and was
post get iron infusions, but when he gets them he feels sick, so they stopped it. He states he began getting chest tightness when they told him he had to go to the emergency department. He states the tightness is dissipating.
Past History
Past History
ED Past Medical History: CAD, CHF, HTN, Hypercholesterolemia and Renal failure
ED Past Surgical History: Cardiac (pacer)
Social History
Tobacco: Non-smoker
Alcohol: None
Drug: None
Living: with family
Review of Systems
Review of Systems
Allergies reviewed?: Yes
All Other Systems: Not applicable
Constitutional: Reports no symptoms
EENT: Reports no symptoms
Respiratory: Reports no symptoms
Cardiac: Reports chest pain
ABD/GI: Reports no symptoms
: Reports no symptoms
Musculoskeletal: Reports no symptoms
Skin: Reports no symptoms
Neurological: Reports no symptoms
Endocrine: Reports no symptoms
Hematologic/Lymphatic: Reports no symptoms
Psychiatric: Reports no symptoms
Phy Exam
Physical Exam
Physical Exam:
Physical Exam
General: no apparent distress, not acutely ill
Neck: supple. no meningeal signs. normal posterior pharynx
Heart: s1/s2 regular rate and rhythm, no murmur. equal radial
pulses. Midline sternotomy scar
HEENT: Pupils equal round reactive to light, EOMI
Lungs: no acute respiratory distress. clear bilaterally
Abdomen: normal bowel sounds. not tender. no CVAT
Neuro: alert and oriented. no focal neurological deficits cranial nerves II through XII intact
Skin: no rash
Psychiatric: well kept. interactive and cooperative
Extremities: no edema. no calf tenderness. negative homans. good distal pulses
Course
Orders/Labs/Results
Orders:
Orders
10/15/24 14:44
Type+Screen Urgent
Complete Blood Count/With Diff Urgent
Comprehensive Metabolic Panel Urgent
10/15/24 15:28
Electrocardiogram (*1) Urgent
Reason for Study: Chest Pain
EKG- Treatment ONCE
10/15/24 15:31
Troponin I Urgent
10/15/24 18:13
Troponin I Urgent
Abnormal Lab Results
10/15/24
14:44
RBC 3.18 L 10^6/uL
(4.70-6.10)
Hgb 8.0 L g/dL
(13.0-18.0)
Hct 26.5 L %
(39.0-52.0)
MCH 25.2 L pg
(27.0-31.0)
MCHC 30.2 L g/dL
(33.0-37.0)
RDW 16.3 H %
(11.5-14.5)
Absolute Lymphs (auto) 0.7 L 10^3/uL
(1.2-3.4)
Absolute Monos (auto) 0.7 H 10^3/uL
(0.1-0.6)
Neutrophils % 76.2 H %
(42.2-75.2)
Lymphocytes % 10.0 L %
(20.5-51.1)
Monocytes % 10.1 H %
(1.7-9.3)
BUN 37 H mg/dl
(9-20)
Creatinine 2.8 H mg/dL
(0.7-1.3)
Glucose 152 H mg/dl
(70-99)
AST 14 L U/L
(17-59)
Total Protein 6.1 L g/dl
(6.3-8.2)
10/15/24 14:44
10/15/24 14:44
Vital Signs
Initial and Last Documented VS:
Initial Vital Signs
Temp
98.1 F
10/15/24 14:39
Last Documented Vital Signs
Temp Pulse Resp BP Pulse Ox
98.1 F 63 15 134/66 97
10/15/24 14:39 10/15/24 15:15 10/15/24 15:15 10/15/24 15:00 10/15/24 15:15
MDM/Problems Addressed
Differential Diagnosis Includes:
ACS, anemia
Chronic conditions affecting care: CAD and Kidney disease
Acute Exacerbation and/or Progression of Chronic Illness: CAD and Kidney disease
*Pulse Oximetry
Patient hypoxic: no
*EKG
Interpreted by ED Provider?: Yes
EKG Intrepretation Date: 10/15/24
EKG Intrepretation Time: 15:35
Interpretation: abnormal
Comparison EKG: no changes
Heart Rate: 63
Rate: normal
Rhythm: ventricular paced
Goessel: left axis deviation
Interval: normal interval
QRS Pattern: normal QRS
Ischemia: T-wave inversion
*Rib Matcher And Fitter Interpretation
Rate: normal
Interpretation: abnormal
Heart Rate: 63
Rhythm: sinus and ventricular paced
*Critical Care Note
Total Time (30-74mins, 75-104mins- exclusive of procedures): Not Applicable
Data Reviewed
Review of Other/Old Records Reveals: Labs (Prior creatinine 2.9 on 09/26/2024)
Source: records
Patient Management
Social determinants of health affecting care: Living situation and Strong social support
Escalation/DeEscalation of care consider admission/obs:
Admit not indicated
ED Attending Note
-
Portions of this chart may have been created with voice recognition software.� Occasional wrong word or��sound alike� substitutions may have occurred due to the inherent limitations of voice recognition software.
Discharge Plan
Departure
Patient Disposition: Home (Routine Discharge)
Date of Disposition: 10/15/24
Time of Disposition: 19:24
Patient with high blood pressure during this ER visit?: Yes
Condition: Good
Discharge Problem:
Chest pain, Anemia
Instructions: Chest Pain CBC Follow Up, BLOOD PRESSURE
Prescriptions:
No Action
acetaminophen [Tylenol] 325 mg Tablet
650 mg PO Q4HPRN PRN (Reason: mild pain/fever)
trazodone 50 mg Tablet
50 mg PO HS
amiodarone 200 mg Tablet
200 mg PO DAILY
isosorbide mononitrate 30 mg Tablet Extended Release 24 Hr
30 mg PO Q12H
aspirin 81 mg Tablet,Delayed Release (Dr/Ec)
81 mg PO DAILY
sodium bicarbonate 650 mg Tablet
650 mg PO BID
ezetimibe [Zetia] 10 mg Tablet
10 mg PO QPM
Eliquis 5 mg Tablet
5 mg PO BID
hydralazine 50 mg Tablet
50 mg PO TID 30 Days Qty: 90 0RF
carvedilol 12.5 mg Tablet
12.5 mg PO BID 30 Days Qty: 60 0RF
amlodipine 5 mg Tablet
5 mg PO DAILY 30 Days Qty: 30 0RF
calcium carbonate-vitamin D3 [Calcium 500 + D] 500 mg-5 mcg (200 unit) Tablet
1 tab PO BID
levothyroxine 175 mcg Tablet
175 mcg PO DAILY@0600
potassium chloride 10 mEq Capsule, Extended Release
40 meq PO DAILY
ondansetron HCl 4 mg Tablet
4 mg PO Q6HPRN PRN (Reason: nausea/vomiting)
ascorbic acid (vitamin C) 500 mg Tablet
500 mg PO MOWEFR@0830,1830
furosemide 80 mg Tablet
80 mg PO BID
bisacodyl 10 mg Suppository
10 mg AL [id number] PRN (Reason: no BM and lactulose is ineffective)
nitroglycerin 0.4 mg Tablet, Sublingual
0.4 mg SUBLINGUAL [id number] PRN (Reason: chest pain/angina)
ergocalciferol (vitamin D2) 1,250 mcg (50,000 unit) Capsule
1,250 mcg PO TU
calcitriol 0.25 mcg Capsule
0.25 mcg PO MOWEFR
lactulose 10 gram/15 mL Solution
20 g PO HSPRN PRN (Reason: constipation)
cholecalciferol (vitamin D3) [Vitamin D3] 25 mcg (1,000 unit) Tablet
25 mcg PO DAILY
ferrous gluconate 324 mg (38 mg iron) Tablet
324 mg PO MOWEFR
bumetanide 2 mg tablet
2 mg PO DAILYPRN PRN (Reason: gain of 2 pounds in 2 days or 5 pounds in 1 week)
lidocaine 4 % Cream
1 applic TOPICAL DAILY
Referrals:
UNKNOWN - PT DOES,NOT KNOW [Unknown Provider] -
Interventions
Interventions:
*Risk Screen - Suicide Last Done: 10/15/24 14:43
*General Assessment Last Done: 10/15/24 14:43
*Neglect/Abuse Screening Last Done: 10/15/24 14:43
*ED- Fall Risk Assessment Last Done: 10/15/24 14:43
*ED COVID-19 Vaccine History Last Done: 10/15/24 14:43
Discharge Date and Time
Print Language: ITALIAN
[2024-10-15 16:00] LABS: Troponin I 0.013 ng/ml
[2024-10-15 18:59] LABS: Troponin I < 0.012 ng/ml
== END 2024-10-15 21:27 | disposition home or self-care (01) ==
LOC: EMR 14:37
PROVIDERS: Emergency Medicine; EMERGENCY PHYSICIAN Emergency Medicine; FAMILY PHYSICIAN Student in an Organized Health Care Education/Training Program
DX: D64.9 Anemia, unspecified (principal); R07.89 Other chest pain; I11.0 Hypertensive heart disease with heart failure; I50.9 Heart failure, unspecified
CPT/HCPCS: 99284; 36415; 80053; 84484; 85025; 86850; 86900; 86901; 93005

== ENCOUNTER → 2024-11-12 16:03 | Outpatient (REF) | payer MEDICARE, BC, OTHER, SELFPAY ==
[2024-11-12 17:04] LABS: Blood Urea Nitrogen 36 mg/dl (9-20)
[2024-11-12 17:05] LABS: Albumin 3.9 g/dl (3.5-5.0); Calcium 8.7 mg/dl (8.4-10.2); Carbon Dioxide 26 mmol/L (22-30); Chloride 103 mmol/L (98-107); eGFR 19.32
[2024-11-12 17:13] LABS: Glucose 143 mg/dl (70-99); Phosphorus 3.5 mg/dl (2.5-4.5); Potassium 3.7 mmol/L (3.5-5.1); Sodium 139 mmol/L (135-145)
[2024-11-12 17:33] LABS: % Basophils 0.5 % (0-2); % Eosinophils 3.3 % (0-6); % Immature Granulocytes 0.2 % (0-0.5); % Lymphocytes 12.2 % (20.5-51.1); % Monocytes 9.4 % (1.7-9.3); % Neutrophils 74.4 % (42.2-75.2); Absolute Eosinophils 0.2 10^3/uL (0-0.7); Absolute Lymphocytes 0.8 10^3/uL (1.2-3.4); Absolute Monocytes 0.6 10^3/uL (0.1-0.6); Absolute Neutrophils 4.7 10^3/uL (1.4-6.5); Hematocrit 24.1 % (39.0-52.0); Hemoglobin 7.2 g/dL (13.0-18.0); Mean Corp Hgb Conc. 29.9 g/dL (33.0-37.0); Mean Corpuscular Volume 80.3 fL (80.0-94.0); Mean Platelet Volume 10.6 fL (7.4-10.4); Nucleated Red Blood Cells % 0 % (-); Platelet Count 177 10^3/uL (130-400); Red Cell Dist. Width 16.6 % (11.5-14.5); White Blood Cell Count 6.3 10^3/uL (4.8-10.8)
[2024-11-12 17:34] LABS: Anisocytosis 1+; Normal RBC Morphology No
[2024-11-12 17:35] LABS: Hypochromasia 2+
[2024-11-12 17:36] LABS: Microcytosis 1+
[2024-11-12 17:37] LABS: Macrocytosis 1+
== END ==
LOC: OLABN 16:03
PROVIDERS: ATTENDING PHYSICIAN Student in an Organized Health Care Education/Training Program
DX: N18.4 Chronic kidney disease, stage 4 (severe) (principal)
CPT/HCPCS: 36415; 80069; 85025; 85045

== ENCOUNTER → 2024-11-13 11:33 | Outpatient (REF) | payer MEDICARE, BC, OTHER, SELFPAY | LOC: OLABN 11:33 | PROVIDERS: ATTENDING PHYSICIAN Student in an Organized Health Care Education/Training Program | DX: N18.4 Chronic kidney disease, stage 4 (severe) (principal) | CPT/HCPCS: 36415; 83519 ==

== ENCOUNTER 2024-12-11 22:59 | Emergency (ER) | payer MEDICARE, BC, OTHER, SELFPAY ==
[2024-12-11 23:08] VITALS: BP 162/95
[2024-12-11 23:09] VITALS: BMI 34.6
--- NOTE | 2024-12-11 23:42 | ED.GENMED ---
History of Present Illness
<Eufemia French DE ALCHOLIZER - Last Filed: 12/13/24 17:41>
General
Chief Complaint: Weakness
Source: patient
Exam Limitations: none
Time Seen by Provider: 12/11/24 23:41
Nursing documentation reviewed up to this point in time: agreed with
History of Present Illness
History of Present Illness:
69-year-old male with history of A-fib on Eliquis, COPD, CHF, HTN, pacemaker, CKD stage IV, NIDDM, hypothyroid, cardiac stents presents for general weakness. States he's been sleeping more, fatigued. Denies CP, SOB, abdominal pain. Had BM FILM SPLICER and
denies change in color of stool.
Past History
<Eufemia French, DE ALCHOLIZER - Last Filed: 12/13/24 17:41>
Past History
ED Past Medical History: CAD, CHF, HTN, Hypercholesterolemia and Renal failure
ED Past Surgical History: Cardiac (pacer)
Social History
Tobacco: Non-smoker
Alcohol: None
Drug: None
Living: with family
Review of Systems
<Eufemia French, DE ALCHOLIZER - Last Filed: 12/13/24 17:41>
Review of Systems
Allergies reviewed?: Yes
All Other Systems: ROS reviewed and negative except as documented in HPI and ROS
Constitutional: Reports fatigue; Denies fever
Respiratory: Denies trouble breathing
Cardiac: Denies chest pain
ABD/GI: Denies abdominal pain, nausea, vomiting, diarrhea, constipated, bloody stools or black stools
: Denies dysuria or difficulty voiding
Musculoskeletal: Reports edema
Skin: Reports no symptoms
Neurological: Reports no symptoms
Phy Exam
<Eufemia French, DE ALCHOLIZER - Last Filed: 12/13/24 17:41>
Physical Exam
Physical Exam:
GENERAL: No acute distress. A&Ox3.
CONSTITUTIONAL: Afebrile.
EYES: Pale conjunctiva, clear, conjunctivae normal
ENMT: moist mucus membranes, Pharynx nl
RESPIRATORY: Regular respirations, nonlabored, lungs clear.
CARDIOVASCULAR: Regular rate and rhythm, no murmurs, no rubs.
GI: Soft, nontender, normal BS
Rectal: light brown stool, heme negative
MUSCULOSKELETAL: Moves with ease. Well perfused. Bilateral lower extremity edema
SKIN: Warm, dry, pink
PSYCH: Depressed mood and affect. Well kept, interactive and appropriate
NEUROLOGIC: Awake, alert and oriented. No focal neurological deficits
Course
<Eufemia French DE ALCHOLIZER - Last Filed: 12/13/24 17:41>
Orders/Labs/Results
Orders:
Orders
12/11/24 23:25
EKG [Electrocardiogram (*1)] Urgent
Reason for Study: Fatigue / Weakness
12/11/24 23:26
EKG- Treatment ONCE
12/11/24 23:36
CBC/With Diff [Complete Blood Count/With Diff] Urgent
Comprehensive Metabolic Panel Urgent
PTT Urgent
Prothrombin Time Urgent
12/11/24 23:42
Urinalysis Reflex To Culture Urgent
Date Specimen was Collected: 12/12/24
Time Specimen was Collected: 02:10
12/11/24 23:55
Type And Crossmatch [Type+Screen] Urgent
12/12/24 00:30
* Blood Bank Products Urgent
Blood Bank Products: *Packed RBC Leuko(PRBC's)
Quantity: 2
Transfuse Today: Yes
Reason: Anemia
12/12/24 00:31
IV Insert/Care/Rem.- Treatment PRN
12/12/24 03:00
Urine Microscopic Reflex Cult Urgent
12/12/24 Breakfast
2200 calorie (18 carb) Diabetic
At Your Request: Full Participation
Abnormal Lab Results
12/11/24 12/12/24 12/12/24
23:36 00:03 03:00
RBC 3.10 L 10^6/uL
(4.70-6.10)
Hgb 6.9 L* g/dL
(13.0-18.0)
Hct 23.1 L %
(39.0-52.0)
MCV 74.5 L fL
(80.0-94.0)
MCH 22.3 L pg
(27.0-31.0)
MCHC 29.9 L g/dL
(33.0-37.0)
RDW 17.6 H %
(11.5-14.5)
Absolute Lymphs (auto) 0.9 L 10^3/uL
(1.2-3.4)
Absolute Monos (auto) 0.7 H 10^3/uL
(0.1-0.6)
Lymphocytes % 13.3 L %
(20.5-51.1)
Monocytes % 10.1 H %
(1.7-9.3)
PT 16.6 H Sec
(11.4-14.6)
Potassium 3.4 L mmol/L
(3.5-5.1)
Chloride 108 H mmol/L
(98-107)
BUN 38 H mg/dl
(9-20)
Creatinine 3.5 H mg/dL
(0.7-1.3)
Glucose 146 H mg/dl
(70-99)
AST 13 L U/L
(17-59)
Total Protein 6.2 L g/dl
(6.3-8.2)
Urine Albumin (Reflex) 3+ A
(Neg - Trace)
Crossmatch IS Only See Detail
12/11/24 23:36
12/11/24 23:36
Vital Signs
Initial and Last Documented VS:
Initial Vital Signs
Pulse Resp
71 17
12/11/24 23:07 12/11/24 23:07
Last Documented Vital Signs
Temp Pulse Resp BP Pulse Ox
98.1 F 70 20 176/84 99
12/12/24 09:22 12/12/24 09:22 12/12/24 09:22 12/12/24 09:22 12/12/24 09:22
<Willow Gilbert, DO - Last Filed: 12/12/24 07:02>
Orders/Labs/Results
Orders:
Orders
12/11/24 23:25
EKG [Electrocardiogram (*1)] Urgent
Reason for Study: Fatigue / Weakness
12/11/24 23:26
EKG- Treatment ONCE
12/11/24 23:36
CBC/With Diff [Complete Blood Count/With Diff] Urgent
Comprehensive Metabolic Panel Urgent
PTT Urgent
Prothrombin Time Urgent
12/11/24 23:42
Urinalysis Reflex To Culture Urgent
Date Specimen was Collected: 12/12/24
Time Specimen was Collected: 02:10
12/11/24 23:55
Type And Crossmatch [Type+Screen] Urgent
12/12/24 00:30
* Blood Bank Products Urgent
Blood Bank Products: *Packed RBC Leuko(PRBC's)
Quantity: 2
Transfuse Today: Yes
Reason: Anemia
12/12/24 00:31
IV Insert/Care/Rem.- Treatment PRN
12/12/24 03:00
Urine Microscopic Reflex Cult Urgent
12/12/24 Breakfast
2200 calorie (18 carb) Diabetic
At Your Request: Full Participation
Abnormal Lab Results
12/11/24 12/12/2412/12/25
23:36 00:03 03:00
RBC 3.10 L 10^6/uL
(4.70-6.10)
Hgb 6.9 L* g/dL
(13.0-18.0)
Hct 23.1 L %
(39.0-52.0)
MCV 74.5 L fL
(80.0-94.0)
MCH 22.3 L pg
(27.0-31.0)
MCHC 29.9 L g/dL
(33.0-37.0)
RDW 17.6 H %
(11.5-14.5)
Absolute Lymphs (auto) 0.9 L 10^3/uL
(1.2-3.4)
Absolute Monos (auto) 0.7 H 10^3/uL
(0.1-0.6)
Lymphocytes % 13.3 L %
(20.5-51.1)
Monocytes % 10.1 H %
(1.7-9.3)
PT 16.6 H Sec
(11.4-14.6)
Potassium 3.4 L mmol/L
(3.5-5.1)
Chloride 108 H mmol/L
(98-107)
BUN 38 H mg/dl
(9-20)
Creatinine 3.5 H mg/dL
(0.7-1.3)
Glucose 146 H mg/dl
(70-99)
AST 13 L U/L
(17-59)
Total Protein 6.2 L g/dl
(6.3-8.2)
Urine Albumin (Reflex) 3+ A
(Neg - Trace)
Crossmatch IS Only See Detail
12/11/24 23:36
12/11/24 23:36
Vital Signs
Initial and Last Documented VS:
Initial Vital Signs
Pulse Resp
71 17
12/11/24 23:07 12/11/24 23:07
Last Documented Vital Signs
Temp Pulse Resp BP Pulse Ox
98.1 F 70 20 176/84 99
12/12/24 09:22 12/12/24 09:22 12/12/24 09:22 12/12/24 09:22 12/12/24 09:22
<Eufemia French DE ALCHOLIZER - Last Filed: 12/13/24 17:41>
MDM/Problems Addressed
MDM/Problems Addressed:
69-year-old male with history of A-fib on Eliquis, COPD, CHF, HTN, pacemaker, CKD stage IV, NIDDM, hypothyroid, cardiac stents presents for general weakness. States he's been sleeping more, fatigued. Denies CP, SOB, abdominal pain. Had BM FILM SPLICER and
denies change in color of stool.
EKG: ventricular paced rhythm HR 70
CBC: Hgb 6.9 (there is a chronic element, he has CKD 4, he has received iron infusions in the past, )
CMP with no clinically significant abnormality
<Eufemia French, DE ALCHOLIZER - Last Filed: 12/13/24 17:41>
*Critical Care Note
Total Time (30-74mins, 75-104mins- exclusive of procedures): Not Applicable
ED Attending Note
<Eufemia French DE ALCHOLIZER - Last Filed: 12/13/24 17:41>
-
Portions of this chart may have been created with voice recognition software.� Occasional wrong word or��sound alike� substitutions may have occurred due to the inherent limitations of voice recognition software.
<Willow Gilbert DO - Last Filed: 12/12/24 07:02>
ED Attending Note
Patient seen and examined by attending physician: Yes
I performed a history and physical exam of patient and discussed management with resident, I reviewed resident's note and agree with documented findings and plan of care.: Yes
ED Attending Note:
69-year-old gentleman with history of chronic kidney disease, anemia of chronic disease. History of A-fib chronically maintained Eliquis, low-dose aspirin.
Follows with hematology, intermittent IV iron and when he is significantly symptomatic or blood count drops below 7 requires intermittent blood transfusions.
He presents tonight due to low hemoglobin, generalized fatigue.
He denies rectal bleeding, no chest pain nor shortness of breath but does admit to moderate fatigue.
Similar presentation early October of this year where he required blood transfusion in the ED.
Hemoglobin yesterday on outpatient labs 6.8, upon recheck 6.9.
He has received 2 units of packed red blood cells, feeling markedly improved.
Will discharge to home with recommendations for prompt follow-up with his PCP and pen tender.
Discharge Plan
Departure
Patient Disposition: Home (Routine Discharge)
Date of Disposition: 12/12/24
Time of Disposition: 06:57
Patient with high blood pressure during this ER visit?: No
Condition: Good
Discharge Problem:
Anemia of chronic disease
Instructions: Blood transfusion, Anemia in adults, possibly from low iron - ED discharge instructions
Prescriptions:
No Action
acetaminophen [Tylenol] 325 mg Tablet
650 mg PO Q4HPRN PRN (Reason: mild pain/fever)
trazodone 50 mg Tablet
50 mg PO HS
amiodarone 200 mg Tablet
200 mg PO DAILY
isosorbide mononitrate 30 mg Tablet Extended Release 24 Hr
30 mg PO Q12H
aspirin 81 mg Tablet,Delayed Release (Dr/Ec)
81 mg PO DAILY
sodium bicarbonate 650 mg Tablet
650 mg PO BID
ezetimibe [Zetia] 10 mg Tablet
10 mg PO QPM
Eliquis 5 mg Tablet
5 mg PO BID
hydralazine 50 mg Tablet
50 mg PO TID 30 Days Qty: 90 0RF
carvedilol 12.5 mg Tablet
12.5 mg PO BID 30 Days Qty: 60 0RF
amlodipine 5 mg Tablet
5 mg PO DAILY 30 Days Qty: 30 0RF
calcium carbonate-vitamin D3 [Calcium 500 + D] 500 mg-5 mcg (200 unit) Tablet
1 tab PO BID
levothyroxine 175 mcg Tablet
175 mcg PO DAILY@0600
potassium chloride 10 mEq Capsule, Extended Release
40 meq PO DAILY
ondansetron HCl 4 mg Tablet
4 mg PO Q6HPRN PRN (Reason: nausea/vomiting)
ascorbic acid (vitamin C) 500 mg Tablet
500 mg PO MOWEFR@0830,1830
furosemide 80 mg Tablet
80 mg PO BID
bisacodyl 10 mg Suppository
10 mg [place] [id number] PRN (Reason: no BM and lactulose is ineffective)
nitroglycerin 0.4 mg Tablet, Sublingual
0.4 mg SUBLINGUAL [id number] PRN (Reason: chest pain/angina)
ergocalciferol (vitamin D2) 1,250 mcg (50,000 unit) Capsule
1,250 mcg PO TU
calcitriol 0.25 mcg Capsule
0.25 mcg PO MOWEFR
lactulose 10 gram/15 mL Solution
20 g PO HSPRN PRN (Reason: constipation)
cholecalciferol (vitamin D3) [Vitamin D3] 25 mcg (1,000 unit) Tablet
25 mcg PO DAILY
ferrous gluconate 324 mg (38 mg iron) Tablet
324 mg PO MOWEFR
bumetanide 2 mg tablet
2 mg PO DAILYPRN PRN (Reason: gain of 2 pounds in 2 days or 5 pounds in 1 week)
lidocaine 4 % Cream
1 applic TOPICAL DAILY
Referrals:
UNKNOWN - PT DOES,NOT KNOW [Family Provider]
Activity Restrictions/Additional Instructions:
You received two units of blood.
Follow up with your doctor next week.
Interventions
Interventions:
*Risk Screen - Suicide Last Done: 12/11/24 23:21
*General Assessment Last Done: 12/11/24 23:21
*Neglect/Abuse Screening Last Done: 12/11/24 23:20
*ED- Fall Risk Assessment Last Done: 12/11/24 23:21
*ED COVID-19 Vaccine History Last Done: 12/11/24 23:16
*Nursing Disposition Last Done: 12/12/24 09:22
ED- Cardiac Assessment Last Done: 12/11/24 23:20
ED- Neurological Assessment Last Done: 12/11/24 23:20
ED- Pulmonary Assessment Last Done: 12/11/24 23:20
Discharge Date and Time
Discharge Date/Time: 12/12/24 09:00
Print Language: BENINESE
[2024-12-11 23:58] LABS: ALT (SGPT) 10 U/L (0-50); AST (SGOT) 13 U/L (17-59); Albumin 3.8 g/dl (3.5-5.0); Alkaline Phosphatase 70 U/L (38-126); Blood Urea Nitrogen 38 mg/dl (9-20); Calcium 8.8 mg/dl (8.4-10.2); Carbon Dioxide 23 mmol/L (22-30); Chloride 108 mmol/L (98-107); Estimated Creatinine Clearance 28 ml/min; Glucose 146 mg/dl (70-99); Potassium 3.4 mmol/L (3.5-5.1); Sodium 139 mmol/L (135-145); Total Bilirubin 0.5 mg/dl (0.2-1.3); Total Protein 6.2 g/dl (6.3-8.2); eGFR 18.01
[2024-12-12] VITALS (19 sets, daily range): BP systolic 156–176; BP diastolic 74–114
[2024-12-12 00:09] LABS: INR 1.32; PT 16.6 Sec (11.4-14.6)
[2024-12-12 00:10] LABS: APTT 33.3 Sec (23.4-35.0)
[2024-12-12 00:12] LABS: % Basophils 0.9 % (0-2); % Eosinophils 2.2 % (0-6); % Immature Granulocytes 0.3 % (0-0.5); % Lymphocytes 13.3 % (20.5-51.1); % Monocytes 10.1 % (1.7-9.3); % Neutrophils 73.2 % (42.2-75.2); Absolute Basophils 0.1 10^3/uL (0-0.2); Absolute Eosinophils 0.1 10^3/uL (0-0.7); Absolute Lymphocytes 0.9 10^3/uL (1.2-3.4); Absolute Monocytes 0.7 10^3/uL (0.1-0.6); Absolute Neutrophils 4.7 10^3/uL (1.4-6.5); Hematocrit 23.1 % (39.0-52.0); Hemoglobin 6.9 g/dL (13.0-18.0); Mean Corp Hgb Conc. 29.9 g/dL (33.0-37.0); Mean Corpuscular Hgb 22.3 pg (27.0-31.0); Mean Corpuscular Volume 74.5 fL (80.0-94.0); Mean Platelet Volume 9.9 fL (7.4-10.4); Nucleated Red Blood Cells % 0 % (-); Platelet Count 165 10^3/uL (130-400); Red Cell Dist. Width 17.6 % (11.5-14.5); White Blood Cell Count 6.5 10^3/uL (4.8-10.8)
[2024-12-12 03:27] LABS: Urine Albumin 3+ (Neg - Trace); Urine Bilirubin Negative (Negative); Urine Character Clear (Clear); Urine Color Yellow; Urine Glucose Negative (Negative); Urine Ketone Negative (Negative); Urine Leukocyte Negative (Negative); Urine Nitrite Negative (Negative); Urine Occult Blood Negative (Negative); Urine Urobilinogen Negative (Neg - 1+)
[2024-12-12 03:47] LABS: Urine Red Blood Cell 0-2 /HPF (0-2); Urine Squamous Cell 0-2 /LPF (Few); Urine White Cell 0-2 /HPF (0-5)
== END 2024-12-12 09:00 | disposition home or self-care (01) ==
LOC: EMR 22:59
PROVIDERS: Emergency Medicine; Registered Nurse; EMERGENCY PHYSICIAN Emergency Medicine
DX: E11.22 Type 2 diabetes mellitus with diabetic chronic kidney disease (principal); D63.1 Anemia in chronic kidney disease; I13.0 Hypertensive heart and chronic kidney disease with heart failure and stage 1 through stage 4 chronic kidney disease, or unspecified chronic kidney disease; I50.9 Heart failure, unspecified; N18.4 Chronic kidney disease, stage 4 (severe); E03.9 Hypothyroidism, unspecified; E78.00 Pure hypercholesterolemia, unspecified; I25.10 Atherosclerotic heart disease of native coronary artery without angina pectoris; I48.91 Unspecified atrial fibrillation; J44.9 Chronic obstructive pulmonary disease, unspecified; Z79.01 Long term (current) use of anticoagulants; Z95.0 Presence of cardiac pacemaker; Z95.5 Presence of coronary angioplasty implant and graft
CPT/HCPCS: 99284; 36415; 36430; 80053; 81003; 81015; 82728; 83540; 83550; 83880; 85025; 85610; 85730; 86850; 86900; 86901; 86920; 93005; P9016

== ENCOUNTER → 2024-12-24 16:29 | Outpatient (REF) | payer MEDICARE, BC, OTHER, SELFPAY ==
[2024-12-24 17:17] LABS: % Basophils 0.7 % (0-2); % Eosinophils 3.1 % (0-6); % Immature Granulocytes 0.4 % (0-0.5); % Lymphocytes 10.2 % (20.5-51.1); % Neutrophils 76.6 % (42.2-75.2); Absolute Basophils 0.1 10^3/uL (0-0.2); Absolute Eosinophils 0.2 10^3/uL (0-0.7); Absolute Lymphocytes 0.7 10^3/uL (1.2-3.4); Absolute Monocytes 0.6 10^3/uL (0.1-0.6); Absolute Neutrophils 5.5 10^3/uL (1.4-6.5); Hematocrit 29.1 % (39.0-52.0); Hemoglobin 8.7 g/dL (13.0-18.0); Mean Corp Hgb Conc. 29.9 g/dL (33.0-37.0); Mean Corpuscular Hgb 23.4 pg (27.0-31.0); Mean Corpuscular Volume 78.2 fL (80.0-94.0); Nucleated Red Blood Cells % 0 % (-); Platelet Count 184 10^3/uL (130-400); Red Blood Cell Count 3.72 10^6/uL (4.70-6.10); Red Cell Dist. Width 19.8 % (11.5-14.5); White Blood Cell Count 7.2 10^3/uL (4.8-10.8)
== END ==
LOC: OLABN 16:29
PROVIDERS: ATTENDING PHYSICIAN Student in an Organized Health Care Education/Training Program
DX: N18.4 Chronic kidney disease, stage 4 (severe) (principal)
CPT/HCPCS: 36415; 85025

== ENCOUNTER → 2024-12-25 16:49 | Outpatient (REF) | payer MEDICARE, BC, OTHER, SELFPAY ==
[2024-12-25 17:29] LABS: Blood Urea Nitrogen 42 mg/dl (9-20); Calcium 9.4 mg/dl (8.4-10.2); Carbon Dioxide 27 mmol/L (22-30); Chloride 105 mmol/L (98-107); Glucose 124 mg/dl (70-99); Potassium 3.7 mmol/L (3.5-5.1); Sodium 142 mmol/L (135-145); eGFR 20.83
== END ==
LOC: OLABN 16:49
PROVIDERS: ATTENDING PHYSICIAN Student in an Organized Health Care Education/Training Program
DX: N18.4 Chronic kidney disease, stage 4 (severe) (principal)
CPT/HCPCS: 36415; 80048

== ENCOUNTER → 2025-01-12 22:44 | Outpatient (REF) | payer MEDICARE, BC, OTHER, SELFPAY ==
[2025-01-12 22:53] LABS: Hematocrit 27.6 % (39.0-52.0); Hemoglobin 8.3 g/dL (13.0-18.0); Mean Corp Hgb Conc. 30.1 g/dL (33.0-37.0); Mean Corpuscular Volume 78.6 fL (80.0-94.0); Nucleated Red Blood Cells % 0 % (-); Platelet Count 167 10^3/uL (130-400); Red Cell Dist. Width 20.5 % (11.5-14.5)
[2025-01-12 23:00] LABS: ALT (SGPT) 11 U/L (0-50); AST (SGOT) 13 U/L (17-59); Albumin 4.1 g/dl (3.5-5.0); Alkaline Phosphatase 72 U/L (38-126); Blood Urea Nitrogen 41 mg/dl (9-20); Calcium 9.2 mg/dl (8.4-10.2); Carbon Dioxide 25 mmol/L (22-30); Chloride 104 mmol/L (98-107); Glucose 190 mg/dl (70-99); Magnesium 2.1 mg/dl (1.6-2.3); Potassium 3.2 mmol/L (3.5-5.1); Sodium 139 mmol/L (135-145); Total Protein 6.7 g/dl (6.3-8.2); eGFR 19.32
== END ==
LOC: OLABN 22:44
PROVIDERS: ATTENDING PHYSICIAN Student in an Organized Health Care Education/Training Program
DX: D64.9 Anemia, unspecified (principal)
CPT/HCPCS: 80053; 83735; 85025

== ENCOUNTER → 2025-01-13 09:23 | Outpatient (REF) | payer MEDICARE, BC, OTHER, SELFPAY ==
[2025-01-13 11:34] LABS: HDL Cholesterol 44 mg/dl; LDL Cholesterol, Calculated 69 mg/dl; Very Low Density Lipoprotein 13 mg/dl (0-30)
== END ==
LOC: OLABN 09:23
PROVIDERS: ATTENDING PHYSICIAN Student in an Organized Health Care Education/Training Program
DX: I25.10 Atherosclerotic heart disease of native coronary artery without angina pectoris (principal)
CPT/HCPCS: 36415; 80061

== ENCOUNTER → 2025-01-20 18:10 | Outpatient (REF) | payer MEDICARE, BC, OTHER, SELFPAY ==
[2025-01-20 18:30] LABS: Hematocrit 28.0 % (39.0-52.0); Hemoglobin 8.3 g/dL (13.0-18.0); Mean Corp Hgb Conc. 29.6 g/dL (33.0-37.0); Mean Corpuscular Volume 79.1 fL (80.0-94.0); Nucleated Red Blood Cells % 0 % (-); Platelet Count 176 10^3/uL (130-400); Red Cell Dist. Width 20.1 % (11.5-14.5)
[2025-01-20 18:43] LABS: Iron 182 ug/dl (49-181)
[2025-01-20 18:53] LABS: Total Iron Binding Capacity 368 ug/dl (261-462)
[2025-01-20 19:01] LABS: Vitamin D, 25-OH*** 29.9 ng/mL (30-80)
[2025-01-20 19:19] LABS: Ferritin 31.3 ng/ml (17.9-464.0)
== END ==
LOC: OLABN 18:10
PROVIDERS: ATTENDING PHYSICIAN Internal Medicine Geriatric Medicine
DX: N18.30 Chronic kidney disease, stage 3 unspecified (principal)
CPT/HCPCS: 36415; 82306; 82565; 82728; 83540; 83550; 85025

== ENCOUNTER → 2025-02-24 17:07 | Outpatient (REF) | payer MEDICARE, BC, OTHER, SELFPAY ==
[2025-02-24 17:30] LABS: Hematocrit 27.8 % (39.0-52.0); Hemoglobin 8.2 g/dL (13.0-18.0); Mean Corp Hgb Conc. 29.5 g/dL (33.0-37.0); Mean Corpuscular Volume 80.3 fL (80.0-94.0); Nucleated Red Blood Cells % 0 % (-); Platelet Count 180 10^3/uL (130-400); Red Cell Dist. Width 18.5 % (11.5-14.5)
[2025-02-24 17:31] LABS: Iron 23 ug/dl (49-181)
[2025-02-24 17:43] LABS: Total Iron Binding Capacity 385 ug/dl (261-462)
[2025-02-24 18:04] LABS: TSH 13.90 uIU/ml (0.47-4.68)
[2025-02-24 18:08] LABS: Ferritin 28.5 ng/ml (17.9-464.0)
== END ==
LOC: OLABN 17:07
PROVIDERS: ATTENDING PHYSICIAN Internal Medicine Geriatric Medicine
DX: N18.30 Chronic kidney disease, stage 3 unspecified (principal); E03.9 Hypothyroidism, unspecified
CPT/HCPCS: 36415; 82565; 82728; 83540; 83550; 84439; 84443; 85025

== ENCOUNTER → 2025-02-25 11:00 | Outpatient (REF) | payer MEDICARE, BC, OTHER, SELFPAY ==
[2025-02-25 13:25] LABS: ALT (SGPT) < 10 U/L (0-50); AST (SGOT) 14 U/L (17-59); Albumin 3.8 g/dl (3.5-5.0); Alkaline Phosphatase 66 U/L (38-126); Blood Urea Nitrogen 38 mg/dl (9-20); Calcium 8.7 mg/dl (8.4-10.2); Carbon Dioxide 27 mmol/L (22-30); Chloride 103 mmol/L (98-107); Glucose 134 mg/dl (70-99); Potassium 3.5 mmol/L (3.5-5.1); Sodium 137 mmol/L (135-145); Total Protein 6.2 g/dl (6.3-8.2); eGFR 22.56
== END ==
LOC: OLABN 11:00
PROVIDERS: ATTENDING PHYSICIAN Internal Medicine Geriatric Medicine
DX: R60.9 Edema, unspecified (principal); D50.9 Iron deficiency anemia, unspecified
CPT/HCPCS: 36415; 80053; 83880

== ENCOUNTER → 2025-03-17 18:09 | Outpatient (REF) | payer MEDICARE, BC, OTHER, SELFPAY ==
[2025-03-17 18:25] LABS: Hematocrit 27.3 % (39.0-52.0); Hemoglobin 8.0 g/dL (13.0-18.0); Mean Corp Hgb Conc. 29.3 g/dL (33.0-37.0); Mean Corpuscular Volume 79.8 fL (80.0-94.0); Nucleated Red Blood Cells % 0 % (-); Platelet Count 159 10^3/uL (130-400); Red Cell Dist. Width 17.3 % (11.5-14.5)
== END ==
LOC: OLABN 18:09
PROVIDERS: ATTENDING PHYSICIAN Internal Medicine Geriatric Medicine
DX: D64.9 Anemia, unspecified (principal)
CPT/HCPCS: 36415; 85025

== ENCOUNTER → 2025-03-24 16:22 | Outpatient (REF) | payer MEDICARE, BC, OTHER, SELFPAY ==
[2025-03-24 17:09] LABS: Hematocrit 26.2 % (39.0-52.0); Hemoglobin 7.6 g/dL (13.0-18.0); Mean Corp Hgb Conc. 29.0 g/dL (33.0-37.0); Mean Corpuscular Volume 78.9 fL (80.0-94.0); Nucleated Red Blood Cells % 0 % (-); Platelet Count 213 10^3/uL (130-400); Red Cell Dist. Width 17.2 % (11.5-14.5)
[2025-03-24 17:37] LABS: Iron 37 ug/dl (49-181)
[2025-03-24 17:46] LABS: Total Iron Binding Capacity 360 ug/dl (261-462)
[2025-03-24 18:13] LABS: Ferritin 27.9 ng/ml (17.9-464.0)
== END ==
LOC: OLABN 16:22
PROVIDERS: ATTENDING PHYSICIAN Internal Medicine Geriatric Medicine
DX: N18.30 Chronic kidney disease, stage 3 unspecified (principal)
CPT/HCPCS: 36415; 82565; 82728; 83540; 83550; 85025

== ENCOUNTER → 2025-03-25 10:21 | Outpatient (REF) | payer MEDICARE, BC, OTHER, SELFPAY ==
[2025-03-25 11:30] LABS: Glycohemoglobin (HgbA1c) 6.8 % (4.0-5.6)
[2025-03-25 11:49] LABS: Blood Urea Nitrogen 51 mg/dl (9-20); Calcium 8.7 mg/dl (8.4-10.2); Carbon Dioxide 28 mmol/L (22-30); Chloride 102 mmol/L (98-107); Glucose 115 mg/dl (70-99); Potassium 3.8 mmol/L (3.5-5.1); Sodium 137 mmol/L (135-145); eGFR 18.01
[2025-03-25 12:00] LABS: Vitamin D, 25-OH*** 22.1 ng/mL (30-80)
== END ==
LOC: OLABN 10:21
PROVIDERS: ATTENDING PHYSICIAN Internal Medicine Geriatric Medicine
DX: N18.4 Chronic kidney disease, stage 4 (severe) (principal); E11.9 Type 2 diabetes mellitus without complications
CPT/HCPCS: 36415; 80048; 82306; 83036

== ENCOUNTER 2025-03-30 21:03 | Observation (INO) | payer MEDICARE, BC, OTHER, SELFPAY ==
[2025-03-30 16:03] VITALS: BP 170/89
[2025-03-30 17:37] VITALS: BMI 36.2
--- NOTE | 2025-03-30 19:30 | ED.GENMED ---
History of Present Illness
General
Chief Complaint: Visual Problem
Source: patient
Time Seen by Provider: 03/30/25 18:28
History of Present Illness
History of Present Illness:
This patient is a 69-year-old male presents emergency department after referral directly from his strategy planning consultant Dr. Jd Barber. Patient is 1 week postop left cataract repair. When he was in the office today he noted that he was having
darkness out of the right visual field. Based on this information, his strategy planning consultant recommended ER workup and admission with recommendations for cardio vascular carotid workup such as Doppler, echo, etc. Suspicion is that patient's report of
darkness out of the right visual field is consistent with amaurosis. The patient does note that this is finding that he first noted today as a change from yesterday. However, he states that this happens from time to time, unpredictably. He states
that sometimes his eye will 'get going', referring to bleeding in the back of his eye, and he suspects it is related to his anticoagulant use. He says sometimes his vision is just darker some days. Of note, patient has limited vision from his left
eye somewhat chronically given his history of retinal detachment. He can only see shadows from his left eye. He denies double vision, numbness, tingling, focal weakness, headache, neck pain, chest pain, shortness of breath, abdominal pain, nausea,
vomiting, or other complaints.
Past History
Past History
ED Past Medical History: CAD, CHF, HTN, Hypercholesterolemia, NIDDM and Other (CKD, COPD, A-fib)
ED Past Surgical History: Cardiac (pacer)
Social History
Tobacco: Non-smoker
Alcohol: None
Drug: None
Living: fpc
Phy Exam
Physical Exam
Physical Exam:
GENERAL: Alert , in no apparent distress
EYE: pupils equal and reactive, no photophobia. Left visual acuity limited to shadows. Right visual campos intact. EOMI, no nystagmus
NECK: Supple, no significant adenopathy.
ENT: o/p clr, mmm.
CARDIAC: Regular rate and rhythm .
LUNGS: Clear breath sounds bilaterally, no acute respiratory distress, no wheezes/rales/rhonchi
ABDOMEN: Soft, without focal tenderness, no r/g, no cvat
NEUROLOGICAL: Alert and oriented, no focal neuro deficits otherwise, [id number] normal, cranial nerves II through XII intact, motor 5 out of 5, sensory intact to light touch
SKIN: Warm and dry, skin intact.
MUSCULOSKELETAL: No edema, well perfused.
PSYCH: Normal and appropriate interaction.
Scores
NIH Stroke Score
Level of Consciousness: 0 - Alert
LOC Questions: 0-Answers both correctly
LOC Commands: 0-Performs both correctly
Best Horizontal Gaze: 0-Normal
Facial Palsy: 0=Normal, symmetrical
Motor - Right Arm: 0=No drift 10 seconds
Motor - Left Arm: 0=No drift 10 seconds
Motor - Right Le-No drift 5 seconds
Motor - Left Le-No drift 5 seconds
Limb Ataxia: 0-Absent
Sensation: 0-Normal
Best Language: 0-No aphasia
Dysarthria: 0-Normal
Extinction and Inattention: 0-No abnormality
Course
Orders/Labs/Results
Orders:
Orders
03/30/25 18:49
Electrocardiogram (*1) Stat
Reason for Study: Other
Other Reason for Exam: neuro symptoms
CT Head W/o Iv Contrast Urgent
Comment:
Reason For Exam: R amaurosis fugax
Cardiac Monitoring- Treatment ONCE
EKG- Treatment ONCE
CRP [C-Reactive Protein] Urgent
Complete Blood Count/No Diff Urgent
Comprehensive Metabolic Panel Urgent
Erythrocyte Sed Rate Urgent
Troponin I Urgent
Vital Signs
Initial and Last Documented VS:
Initial Vital Signs
Temp Pulse Resp BP Pulse Ox
98 F 72 16 170/89 97
03/30/25 16:03 03/30/25 16:03 03/30/25 16:03 03/30/25 16:03 03/30/25 16:03
Last Documented Vital Signs
Temp Pulse Resp BP Pulse Ox
98 F 72 16 170/89 97
03/30/25 16:03 03/30/25 16:03 03/30/25 16:03 03/30/25 16:03 03/30/25 19:39
*Pulse Oximetry
SaO2: 97
Oxygen Mode of Delivery: Room air
Update Note
Update Note:
Patient presents to the Emergency Department with __visual complaints
Number and Complexity of Problems Addressed at the Encounter
� Chronic conditions affecting care:
� Acute Exacerbation and/or Progression of Chronic Illness:
� Differential Diagnosis includes: But not limited to amaurosis fugax, GCA, retinopathy, etc. etc.
Amount and/or Complexity of Data to be Reviewed and Analyzed
� I performed an independent evaluation of and my interpretation is:
EKG: Read by me, ventricular paced, normal rate, no acute ischemia
CT: ead by anderson cevallos
Xrays:
Laboratory Studies: Pending at time of signout
Other:
� Review of other/old records reveals: Hospitalization from March 2024 reviewed by me patient was admitted for exacerbation of heart failure. I have also reviewed patient's office note from today from his strategy planning consultant
with his findings concerns and recommendations.
� Clinical information was obtained by an independent historian:
� Prescriptions/Medications Considered but not given:
� Further testing considered but not performed:
Risk of Complications and/or Morbidity or Mortality of Patient Management
� Social determinants of health affecting care:
� Discussion with other providers (PCP, Hospitalists, Consultants, etc):
� Escalation of care including admission/observation vs risk of discharge considered: 7:41 PM case discussed with hospitalist for admission for amaurosis rule out. I have scanned in strategy planning consultant note to the chart for their
review as well. Patient is not a TNK/IAT candidate given his timing of beginning of symptoms as well as low NIH.
ED Attending Note
-
Portions of this chart may have been created with voice recognition software.� Occasional wrong word or��sound alike� substitutions may have occurred due to the inherent limitations of voice recognition software.
Discharge Plan
Departure
Patient Disposition: Admit
Date of Disposition: 03/30/25
Time of Disposition: 20:00
Admit to: Telemetry
Presentation/result/management discussed w/ accepting MD/DO: Hospitalist
Condition: Fair
Discharge Problem:
Changes in vision
Prescriptions:
No Action
acetaminophen [Tylenol] 325 mg Tablet
650 mg PO Q4HPRN PRN (Reason: mild pain/fever)
trazodone 50 mg Tablet
50 mg PO HS
amiodarone 200 mg Tablet
200 mg PO DAILY
isosorbide mononitrate 30 mg Tablet Extended Release 24 Hr
30 mg PO Q12H
aspirin 81 mg Tablet,Delayed Release (Dr/Ec)
81 mg PO DAILY
sodium bicarbonate 650 mg Tablet
650 mg PO BID
ezetimibe [Zetia] 10 mg Tablet
10 mg PO QPM
Eliquis 5 mg Tablet
5 mg PO BID
hydralazine 50 mg Tablet
50 mg PO TID 30 Days Qty: 90 0RF
carvedilol 12.5 mg Tablet
12.5 mg PO BID 30 Days Qty: 60 0RF
amlodipine 5 mg Tablet
5 mg PO DAILY 30 Days Qty: 30 0RF
calcium carbonate-vitamin D3 [Calcium 500 + D] 500 mg-5 mcg (200 unit) Tablet
1 tab PO BID
levothyroxine 175 mcg Tablet
175 mcg PO DAILY@0600
potassium chloride 10 mEq Capsule, Extended Release
40 meq PO DAILY
ondansetron HCl 4 mg Tablet
4 mg PO Q6HPRN PRN (Reason: nausea/vomiting)
ascorbic acid (vitamin C) 500 mg Tablet
500 mg PO MOWEFR@0830,1830
furosemide 80 mg Tablet
80 mg PO BID
bisacodyl 10 mg Suppository
10 mg [place] [id number] PRN (Reason: no BM and lactulose is ineffective)
nitroglycerin 0.4 mg Tablet, Sublingual
0.4 mg SUBLINGUAL [id number] PRN (Reason: chest pain/angina)
ergocalciferol (vitamin D2) 1,250 mcg (50,000 unit) Capsule
1,250 mcg PO TU
calcitriol 0.25 mcg Capsule
0.25 mcg PO MOWEFR
lactulose 10 gram/15 mL Solution
20 g PO HSPRN PRN (Reason: constipation)
cholecalciferol (vitamin D3) [Vitamin D3] 25 mcg (1,000 unit) Tablet
25 mcg PO DAILY
ferrous gluconate 324 mg (38 mg iron) Tablet
324 mg PO MOWEFR
bumetanide 2 mg tablet
2 mg PO DAILYPRN PRN (Reason: gain of 2 pounds in 2 days or 5 pounds in 1 week)
lidocaine 4 % Cream
1 applic TOPICAL DAILY
Referrals:
NONE,* [Family Provider, Internal Medicine]
Interventions
Interventions:
*Risk Screen - Suicide Last Done: 03/30/25 16:06
*General Assessment Last Done: 03/30/25 17:37
*Neglect/Abuse Screening Last Done: 03/30/25 16:06
*ED- Fall Risk Assessment Last Done: 03/30/25 17:37
*ED COVID-19 Vaccine History Last Done: 03/30/25 17:37
ED- Neurological Assessment Last Done: 03/30/25 17:38
ED-EENT Assessment Last Done: 03/30/25 17:38
Discharge Date and Time
Print Language: FRENCH
[2025-03-30 19:55] VITALS: BP 179/89
[2025-03-30 20:00] VITALS: BP 182/98
[2025-03-30 20:03] LABS: Hematocrit 27.2 % (39.0-52.0); Hemoglobin 8.0 g/dL (13.0-18.0); Mean Corp Hgb Conc. 29.4 g/dL (33.0-37.0); Mean Corpuscular Volume 76.4 fL (80.0-94.0); Platelet Count 163 10^3/uL (130-400); Red Cell Dist. Width 17.7 % (11.5-14.5)
--- NOTE | 2025-03-30 20:06 | HPS.HSE ---
Family Physician
-
Family Physician: * NONE
Chief Complaint
-
dark vision
History of Present Illness
69 y/o M, hx of CAD, CHF, HTN, HLD, NIDDM CKD, COPD, Afib presents to ER after referral from his human resources officer Dr. Jd Barber for dark vision. Patient reports this issue is chronic/intermittent and that his retina specialist is aware of
this. Today during his optho exam, he reported darkness of out the right visual field, with concern for amaurosis. He reports limited vision from left eye given chronic retinal detachment (only sees shadows). Denies any focal numbness or weakness.
No speech difficulties. No other complaints.
Medical History
Past Medical History
Past Medical History: Reports Other (CAD, CHF, HTN, HLD, NIDDM CKD, COPD, Afib)
Past Surgical History: Reports Cardiac (pacer)
Social History
Tobacco: Non-smoker
Alcohol: None
Drug: None
Living: Long-Term
Family History
Family History: Not pertinent
Allergies / Home Medications
Allergies reflects when Allergies were last updated in [facility].
Home Medications with original date entered in [facility]
Allergy/Medication List:
Allergies
Allergy/AdvReac Type Severity Reaction Status Date / Time
cinnamon Allergy Anaphylaxis Verified 03/24/24 12:56
Home Medications
acetaminophen 325 mg tablet (Tylenol) 650 mg PO Q4HPRN PRN mild pain/fever 03/24/24
amiodarone 200 mg tablet 200 mg PO DAILY Arrhythmia 03/24/24
apixaban 5 mg tablet (Eliquis) 5 mg PO BID Blood Clot Prevention/Tx 03/24/24
aspirin 81 mg tablet,delayed release 81 mg PO DAILY Blood Clot Prevention/Tx 03/24/24
ezetimibe 10 mg tablet (Zetia) 10 mg PO QPM High Cholesterol 03/24/24
isosorbide mononitrate 30 mg tablet,extended release 24 hr 30 mg PO Q12H Heart Disease/Condition 03/24/24
sodium bicarbonate 650 mg tablet 650 mg PO BID Supplement 03/24/24
trazodone 50 mg tablet 75 mg PO HSPRN PRN sleep 03/24/24
amlodipine 5 mg tablet 5 mg PO DAILY Blood pressure 1 month #30 tabs 04/01/24
carvedilol 12.5 mg tablet 12.5 mg PO BID Heart Failure 1 month #60 tabs 04/01/24
hydralazine 50 mg tablet 50 mg PO TID Heart Failure 1 month #90 tabs 04/01/24
ascorbic acid (vitamin C) 500 mg tablet 500 mg PO MOWEFR@0830,1830 09/26/24
bisacodyl 10 mg rectal suppository 10 mg WA [id number] PRN no BM and lactulose is ineffective 09/26/24
bumetanide 2 mg tablet 2 mg PO DAILYPRN PRN gain of 2 pounds in 2 days or 5 pounds in 1 week 09/26/24
calcitriol 0.25 mcg capsule 0.25 mcg PO MOWEFR 09/26/24
calcium 500 mg (as carbonate)-vitamin D3 5 mcg (200 unit) tablet (Calcium 500 + D) 1 tab PO BID 09/26/24
cholecalciferol (vitamin D3) 25 mcg (1,000 unit) tablet (Vitamin D3) 25 mcg PO DAILY 09/26/24
ergocalciferol (vitamin D2) 1,250 mcg (50,000 unit) capsule 1,250 mcg PO TU 09/26/24
ferrous gluconate 324 mg (38 mg iron) tablet 324 mg PO DAILY 09/26/24
furosemide 80 mg tablet 80 mg PO BID 09/26/24
lactulose 10 gram/15 mL oral solution 20 g PO HSPRN PRN constipation 09/26/24
lidocaine 4 % topical cream 1 applic topical QPM bilateral upper legs 09/26/24
nitroglycerin 0.4 mg sublingual tablet 0.4 mg sublingual [id number] PRN chest pain/angina 09/26/24
potassium chloride 10 mEq capsule,extended release 40 meq PO DAILY 09/26/24
Prednisol Randall Moxiflox Bromfen 1 drp LEFT EYE BID 03/30/25
dextromethorphan-guaifenesin 10 mg-100 mg/5 mL oral liquid (Diabetic Tussin DM) 10 ml PO Q4HPRN PRN cough 03/30/25
ipratropium 0.5 mg-albuterol 3 mg (2.5 mg base)/3 mL nebulization soln 3 ml inhalation R Q4HPRN PRN sob 03/30/25
levothyroxine 200 mcg tablet (Synthroid) 200 mcg PO DAILY 03/30/25
loratadine 10 mg tablet 10 mg PO Q48H@1830 03/30/25
sennosides 8.6 mg-docusate sodium 50 mg tablet (Senna-S) 1 tab-cap PO MOWEFR 03/30/25
sennosides 8.6 mg-docusate sodium 50 mg tablet (Senna-S) 2 tab-cap PO DAILYPRN PRN constipation 03/30/25
Review of Systems
-
A 12 point ROS was completed and negative except as noted: Yes
Physical Exam
Vital Signs
Vital Signs
Temp Pulse Resp BP Pulse Ox
98 F 72 16 170/89 97
03/30/25 16:03 03/30/25 16:03 03/30/25 16:03 03/30/25 16:03 03/30/25 19:39
Physical Exam
General: No Apparent Distress
HEENT: NormoCephalic and Anicteric
Respiratory: Clear; No Wheezes or Rales
Cardiac: S1/S2, Regular Rhythm and Other (V paced rhythm)
GI: Soft and Non Tender
Neuro: AO x 3, No Motor Deficits and No Sensory Deficits
Psych: Calm
Laboratory Results
-
03/30/25 19:55
Data Reviewed
-
CT Scan: Report Reviewed by me
Lab Data: Labs Reviewed by me
Impression/Plan
-
Assessment:
Possible TIA/Amaurosis fugax
- with symptom of Right sided eye vision darkness
- obs/tele
- check Carotid US, Echo, MRI Brain
- lipids/A1c
- continue ASA/Eliquis for underlying cardiac history as below
- PT/OT
CAD hx of stenting, CABG 2014
Chronic HFrEF
Valvular heart disease (moderate MR, trace R, Moderate PH)
Parox A. Fib
Essential HTN
- V-paced
- continue rate control, asa/Eliquis
- continue BP meds
CKD stage 4
- baseline Cr appears to be 3.2 to 3.5
- continue sodium bicarb
NIDDM
- A1c 6.8% recently
- SSI
- await med rec
COPD hx
- not on meds
Hypothyroidism on replacement
Chronic lymphedema
DVT ppx: Eliquis
Code: Full
--- NOTE | 2025-03-30 20:08 | PHANOTE ---
med rec note- unable to get someone on the phone at [facility] called twice all it does is ring, patient missing paperwork called [phone] but no answer no voice mail
[2025-03-30 20:27] LABS: ALT (SGPT) 13 U/L (0-50); AST (SGOT) 17 U/L (17-59); Albumin 4.0 g/dl (3.5-5.0); Alkaline Phosphatase 71 U/L (38-126); Blood Urea Nitrogen 50 mg/dl (9-20); Calcium 8.8 mg/dl (8.4-10.2); Carbon Dioxide 23 mmol/L (22-30); Chloride 104 mmol/L (98-107); Estimated Creatinine Clearance 36 ml/min; Glucose 117 mg/dl (70-99); Potassium 3.9 mmol/L (3.5-5.1); Sodium 136 mmol/L (135-145); Total Protein 6.6 g/dl (6.3-8.2); Troponin I 0.012 ng/ml; eGFR 23.53
[2025-03-30 20:30] LABS: C-Reactive Protein < 5.00 mg/L (0.0-10.00)
[2025-03-30 22:09] VITALS: BMI 36.5
[2025-03-30 22:24] VITALS: BP 175/103; BMI 36.5
[2025-03-30] MEDS: APRESOLINE 50 MG PO (22:57)
[2025-03-30] MEDS: IMDUR (EXTENDED RELEASE) 30 MG PO (22:58)
[2025-03-30 22:59] LABS: Glucose - Point of Care 110 mg/dl (70-99)
[2025-03-31 03:20] VITALS: BP 159/96
--- NOTE | 2025-03-31 04:00 | DOWNTIME ---
There was a [employer] Downtime on 03/31/2025 from 0100 to 03/31/2025 at 0215. Downtime documentation of patient's care, including medication administrations, has been reconciled in the electronic record per guidelines. Refer to the
patient's paper chart under the miscellaneous tab to see printed paper medication records and downtime forms.
[2025-03-31] MEDS: SYNTHROID 200 MCG PO (05:09)
[2025-03-31 07:00] VITALS: BP 151/83
[2025-03-31 07:24] LABS: Hematocrit 26.9 % (39.0-52.0); Hemoglobin 7.8 g/dL (13.0-18.0); Mean Corp Hgb Conc. 29.0 g/dL (33.0-37.0); Mean Corpuscular Volume 78.0 fL (80.0-94.0); Nucleated Red Blood Cells % 0 % (-); Platelet Count 180 10^3/uL (130-400); Red Cell Dist. Width 17.9 % (11.5-14.5)
[2025-03-31 07:39] LABS: Blood Urea Nitrogen 47 mg/dl (9-20); Calcium 8.9 mg/dl (8.4-10.2); Carbon Dioxide 25 mmol/L (22-30); Chloride 105 mmol/L (98-107); Estimated Creatinine Clearance 36 ml/min; Glucose 96 mg/dl (70-99); Potassium 3.8 mmol/L (3.5-5.1); Sodium 138 mmol/L (135-145); eGFR 23.53
[2025-03-31 09:58] VITALS: BMI 36.5
[2025-03-31] MEDS: ELIQUIS 5 MG PO (10:23)
[2025-03-31] MEDS: LASIX 80 MG PO (10:23)
[2025-03-31] MEDS: KCL 40 MEQ PO (10:23)
[2025-03-31] MEDS: PACERONE 200 MG PO (10:23)
[2025-03-31] MEDS: ASPIR LOW (ENTERIC COATED) 81 MG PO (10:23)
[2025-03-31] MEDS: NORVASC 5 MG PO (10:23)
[2025-03-31] MEDS: IMDUR (EXTENDED RELEASE) 30 MG PO (10:23)
--- NOTE | 2025-03-31 10:23 | W.PN.HOSP.TC ---
Today's Communication/Plan
-
Follow ECHO/Carotid US/MRI brain
DC planning
Assessment / Plan
Assessment / Plan
Possible TIA/Amaurosis fugax
- with symptom of Right sided eye vision darkness. Today pt says he is back to his usual self with his vision in right eye and left eye.
- Visual field testing at bedside with finger testing seems to be full in the right eye today significant central vision issues in the left eye which she says as before
- obs/tele
- Carotid US, Echo, MRI Brain pending
- Hemoglobin A1c 6.8 this month
- continue ASA/Eliquis for underlying cardiac history as below
- PT/OT
CAD hx of stenting, CABG 2014
Chronic HFrEF
Valvular heart disease (moderate MR, trace R, Moderate PH)
Parox A. Fib
Essential HTN
- V-paced
- continue rate control, asa/Eliquis
- continue BP meds
CKD stage 4
- Creatinine 2.8
- baseline Cr appears to be 3.2 to 3.5
- continue sodium bicarb
NIDDM
- A1c 6.8% recently
- SSI
COPD hx
- not on meds
Hypothyroidism on replacement
Chronic lymphedema
DVT ppx: Eliquis
Code: Full
Anticipated Discharge: Today
Subjective/Interval History
-
Date of Service: March 31, 2025
He feels better with his vision and he wants to go home today.
States that he has got longstanding issue with the left eye vision issues.
Had cataracts done 2 weeks ago in the left eye. He also has a retinal issue in the left eye and has significant central vision issues. He is supposed to see a retinal specialist and has longstanding follow-up with him. He can only see a shadow in
the center but in the peripheral visual campos he can see some things. Post cataracts he says in fact his left vision was getting better. He was able to see shadows with a light around it and before that it was pretty bad. He has intermittent
visual changes in the left eye and apparently yesterday he mentioned about complete darkness so he was referred to the hospital. Today his saying central darkness with a peña; is better than what it was prior to his cataract surgery 2 weeks ago.
Denies any headache.
Denies any right eye vision issues. He does mention about diabetic retinopathy in the right eye. He intermittently has issues where he feels his vision feels like he is wearing sunglasses at times and he mentioned it to his eye doctor yesterday and
he is sent in here for TIA rule out.
Denies any prior history of strokes or TIA.
Objective Data
-
Labs:
Laboratory Results
03/31/25
06:47
WBC 7.6
Hgb 7.8 L
Hct 26.9 L
Plt Count 180
Sodium 138
Potassium 3.8
Chloride 105
Carbon Dioxide 25
BUN 47 H
Creatinine 2.8 H
Glucose 96
Calcium 8.9
Vital Signs:
Vital Signs
Temp Pulse Resp BP Pulse Ox
98.3 F 76 20 151/83 96
03/31/25 07:00 03/31/25 07:00 03/31/25 07:00 03/31/25 07:00 03/31/25 07:00
I&O
03/30/25 03/31/25 04/01/25
06:59 06:59 06:59
Intake Total 325 / 325
Output Total 475 / 475
Balance -150 / -150
Physical Exam
-
General: No Apparent Distress
Respiratory: Clear to Auscultation and Non Labored Respirations; Negative Accessory Resp Muscle Use
Cardiac: S1/S2 and Irregular Rhythm (V paced on the monitor); Negative Tachycardic
GI: Soft
Neuro: AO x 3, No Motor Deficits and Other (Full visual campos in right eye with bedside visual field testing; left eye with significant central visual vision loss , able to see lower visual campos on finger testing at bedside.); Negative Tremors,
Slurred Speech or Facial Droop
Psych: Calm; Negative Confused
Data Reviewed
-
Labs: Labs Reviewed by me
[2025-03-31] MEDS: APRESOLINE 50 MG PO ×2 (10:27→17:21)
[2025-03-31] MEDS: SODIUM BICARBONATE 650 MG PO (10:27)
[2025-03-31] MEDS: COREG 12.5 MG PO (10:27)
[2025-03-31] MEDS: NON-FORMULARY ITEM 1 DROP LEFT EYE (10:28)
[2025-03-31] MEDS: ROCALTROL 0.25 MCG PO (10:30)
[2025-03-31 11:00] VITALS: BP 138/75
[2025-03-31 11:17] LABS: HDL Cholesterol 50 mg/dl; LDL Cholesterol, Calculated 83 mg/dl; Very Low Density Lipoprotein 15 mg/dl (0-30)
[2025-03-31 13:31] LABS: Glucose - Point of Care 131 mg/dl (70-99)
--- NOTE | 2025-03-31 15:00 | CM ---
Addendum entered by Verenice Torres 03/31/25 15:39:
[facility]
Report: [phone]

Original Note:
CM reviewed chart, patient seen bedside, initial assessment completed. Patient confirms he resides at [facility], has been there about a year. Patient reports he is hopeful to eventually find his own housing. Patient is ambulatory with a RW, WC
for longer distances. Pharmacy [facility]. Patient reports his son will provide transport back to his facility. ELAM form verbally reviewed, patient declined need for copy, placed in chart.
CM spoke with tisha Vyas at [facility], confirmed patient is LTC, can accept back once stable for d/c. Referral placed in [facility]. CM will continue to follow for all discharge planning needs.
Plan; return to [facility] when stable, son to transport home
[2025-03-31 16:15] VITALS: BP 175/93
[2025-03-31 16:21] LABS: Glucose - Point of Care 155 mg/dl (70-99)
--- NOTE | 2025-03-31 16:49 | W.DCSUMMARY ---
Discharge Summary
Discharge Data
Date of Admission: 03/30/25
Date of Discharge: 03/31/25
-
Pending Results: No
Hospital Course
Primary diagnosis:
Transient right eye vision darkness
Recent left cataract repair
Secondary diagnosis:
Coronary artery disease
History of congestive heart failure
Primary hypertension
Hyperlipidemia
Syf-syawovc-bdlzvynsi diabetes mellitus
Chronic kidney disease stage IV
Paroxysmal atrial fibrillation
Chronic obstructive pulmonary disease
Hospital course:
Patient is 2-week postop for left cataract repair. He was in ophthalmology office and he was having some darkness out of the right visual field. His stope miner recommended ER workup and he was admitted for TIA workup.
Patient stated to me that she has intermittent issues with the right eye and thinks retinal issue and has a retinal doctor appointment.
He had a TIA workup-carotid ultrasound showed no hemodynamically significant carotid stenosis, MRI of the brain was negative for acute stroke. His echocardiogram showed EF of 50 to 55% which is an improvement from 40 to 45%. There is mild to
moderate MR which is also improved from previous which was moderate. He is PASP improved from 56 mmHg to 47 mmHg. He has aortic sinuses mildly dilated 4.1 cm and ascending aorta is ectatic at 3.9 cm.
Unclear if this was a TIA or any primary ophthalmology issue. He was advised to follow-up with his retinal specialist.
He is already on aspirin and also on Eliquis for A-fib. He was on Zetia for hyperlipidemia. His blood pressure was not under goal so his dose of amlodipine was increased from 5 mg to 10 mg. Otherwise no other changes made to his medication
regimen.
Discharge Plan
-
Patient Disposition: Home (Routine Discharge)
Discharge Diagnosis/Procedures: Transient vision loss in right eye with chronic right eye vision disturbance. Evalutated for TIA.
Diet: Low Cholesterol
Activity: As tolerated
Driving Restrictions: Not until seen by your Dr
Bathing Restrictions: None
Referrals:
NONE,* [Family Provider, Internal Medicine] - in less than 1 week
Additional Discharge Medication Instructions: Blood pressure medication amlodipine was increased from 5 mg to 10 mg.
Prescriptions:
Continued
acetaminophen [Tylenol] 325 mg Tablet
650 mg PO Q4HPRN PRN (Reason: mild pain/fever)
trazodone 50 mg Tablet
75 mg PO HSPRN PRN (Reason: sleep)
amiodarone 200 mg Tablet
200 mg PO DAILY
isosorbide mononitrate 30 mg Tablet Extended Release 24 Hr
30 mg PO Q12H
aspirin 81 mg Tablet,Delayed Release (Dr/Ec)
81 mg PO DAILY
sodium bicarbonate 650 mg Tablet
650 mg PO BID
ezetimibe [Zetia] 10 mg Tablet
10 mg PO QPM
Eliquis 5 mg Tablet
5 mg PO BID
hydralazine 50 mg Tablet
50 mg PO TID 30 Days Qty: 90 0RF
carvedilol 12.5 mg Tablet
12.5 mg PO BID 30 Days Qty: 60 0RF
calcium carbonate-vitamin D3 [Calcium 500 + D] 500 mg-5 mcg (200 unit) Tablet
1 tab PO BID
potassium chloride 10 mEq Capsule, Extended Release
40 meq PO DAILY
ascorbic acid (vitamin C) 500 mg Tablet
500 mg PO MOWEFR@0830,1830
furosemide 80 mg Tablet
80 mg PO BID
bisacodyl 10 mg Suppository
10 mg W[place] [id number] PRN (Reason: no BM and lactulose is ineffective)
nitroglycerin 0.4 mg Tablet, Sublingual
0.4 mg SUBLINGUAL [id number] PRN (Reason: chest pain/angina)
ergocalciferol (vitamin D2) 1,250 mcg (50,000 unit) Capsule
1,250 mcg PO TU
calcitriol 0.25 mcg Capsule
0.25 mcg PO MOWEFR
lactulose 10 gram/15 mL Solution
20 g PO HSPRN PRN (Reason: constipation)
cholecalciferol (vitamin D3) [Vitamin D3] 25 mcg (1,000 unit) Tablet
25 mcg PO DAILY
ferrous gluconate 324 mg (38 mg iron) Tablet
324 mg PO DAILY
bumetanide 2 mg tablet
2 mg PO DAILYPRN PRN (Reason: gain of 2 pounds in 2 days or 5 pounds in 1 week)
lidocaine 4 % Cream
1 applic TOPICAL QPM
ipratropium-albuterol 0.5 mg-3 mg(2.5 mg base)/3 mL Solution For Nebulization
3 ml INHALATION R Q4HPRN PRN (Reason: sob)
dextromethorphan-guaifenesin [Diabetic Tussin DM] 10-100 mg/5 mL Liquid
10 ml PO Q4HPRN PRN (Reason: cough)
sennosides-docusate sodium [Senna-S] 8.6-50 mg Tablet
1 tab-cap PO MOWEFR
sennosides-docusate sodium [Senna-S] 8.6-50 mg Tablet
2 tab-cap PO DAILYPRN PRN (Reason: constipation)
levothyroxine [Synthroid] 200 mcg Tablet
200 mcg PO DAILY
Patient Comments:
pt reports taking in evening
loratadine 10 mg Tablet
10 mg PO Q48H@1830
Prednisol Randall Moxiflox Bromfen
1 drp LEFT EYE BID
Rx Instructions:
1%-0.5%-0.075%
bid until 04/13/25 then 1 drop left eye daily
Changed
amlodipine 5 mg Tablet
10 mg PO DAILY 30 Days Qty: 30 0RF
Discharge Orders:
Discharge Patient (As Directed); Ordered 03/31/25
Ordered By: Juan Bess
Discharge Date and Time
Print Language: CITIZEN OF [place]
[2025-03-31] MEDS: ZETIA 10 MG PO (17:21)
[2025-03-31 19:23] VITALS: BP 166/93
[2025-03-31] MEDS: COREG PO (19:28)
[2025-03-31] MEDS: LASIX PO (19:29)
[2025-03-31] MEDS: ELIQUIS PO (19:29)
[2025-03-31] MEDS: NON-FORMULARY ITEM LEFT EYE (19:29)
[2025-03-31] MEDS: SODIUM BICARBONATE PO (19:30)
--- NOTE | 2025-03-31 20:40 | PTCARENOTE ---
[facility] to transport patient back to [facility]. He left unit on stretcher at 2037. Patient left with all belongings, including eye drops from med cart and his wheelchair. At shift report, Adriana (daysdeft RN) stated that
she called report to [facility] prior to shift change.
Prior to knot picker cloth, patient declined all scheduled 8pm meds twice, stating he will get all meds when he returns to [facility]. Updated report called to [facility]. Informed Carolyn of specific meds that weren't administered per patient's
request.
== END 2025-03-31 20:38 ==
LOC: 4 WEST ACU 21:03
PROVIDERS: ADMITTING PHYSICIAN Internal Medicine; ATTENDING PHYSICIAN Internal Medicine; EMERGENCY PHYSICIAN Emergency Medicine
DX: H53.8 Other visual disturbances (principal); I25.10 Atherosclerotic heart disease of native coronary artery without angina pectoris; I50.22 Chronic systolic (congestive) heart failure; I13.0 Hypertensive heart and chronic kidney disease with heart failure and stage 1 through stage 4 chronic kidney disease, or unspecified chronic kidney disease; N18.4 Chronic kidney disease, stage 4 (severe); E11.22 Type 2 diabetes mellitus with diabetic chronic kidney disease; J44.9 Chronic obstructive pulmonary disease, unspecified; E78.00 Pure hypercholesterolemia, unspecified; E03.9 Hypothyroidism, unspecified; I89.0 Lymphedema, not elsewhere classified; R29.818 Other symptoms and signs involving the nervous system; G45.3 Amaurosis fugax; I08.3 Combined rheumatic disorders of mitral, aortic and tricuspid valves; I77.819 Aortic ectasia, unspecified site; I48.0 Paroxysmal atrial fibrillation; Z98.42 Cataract extraction status, left eye; Z95.0 Presence of cardiac pacemaker; Z79.82 Long term (current) use of aspirin; Z79.01 Long term (current) use of anticoagulants; Z79.890 Hormone replacement therapy; Z95.1 Presence of aortocoronary bypass graft
CPT/HCPCS: 70450; 70551; 80048; 80053; 80061; 82962; 84484; 85025; 85027; 85652; 86140; 87070; 93005; 93306; 93880; 97162; 97166; 99285; G0378

== ENCOUNTER → 2025-04-21 16:27 | Outpatient (REF) | payer MEDICARE, BC, SELFPAY ==
[2025-04-21 18:10] LABS: Iron 77 ug/dl (49-181)
[2025-04-21 18:20] LABS: Hematocrit 23.4 % (39.0-52.0); Mean Corp Hgb Conc. 28.2 g/dL (33.0-37.0); Mean Corpuscular Volume 79.3 fL (80.0-94.0); Nucleated Red Blood Cells % 0 % (-); Platelet Count 170 10^3/uL (130-400); Red Cell Dist. Width 17.9 % (11.5-14.5); Total Iron Binding Capacity 357 ug/dl (261-462)
[2025-04-21 18:21] LABS: Hemoglobin 6.6 g/dL (13.0-18.0)
[2025-04-21 18:46] LABS: Ferritin 24.4 ng/ml (17.9-464.0)
== END ==
LOC: OLABN 16:27
PROVIDERS: ATTENDING PHYSICIAN Internal Medicine Geriatric Medicine
DX: N18.30 Chronic kidney disease, stage 3 unspecified (principal)
CPT/HCPCS: 36415; 82565; 82728; 83540; 83550; 85025

== ENCOUNTER 2025-04-22 11:08 | Emergency (ER) | payer MEDICARE, BC, SELFPAY ==
[2025-04-22] VITALS (13 sets, daily range): BP systolic 142–161; BP diastolic 67–92; BMI 38.4
--- NOTE | 2025-04-22 11:44 | ED.GENMED ---
History of Present Illness
<Aston Metzger PA-C - Last Filed: 04/23/25 18:13>
General
Chief Complaint: Abnormal Lab Value
Time Seen by Provider: 04/22/25 11:24
History of Present Illness
History of Present Illness:
70-year-old male presents to the emergency department for evaluation of recurrent anemia. He has known chronic kidney disease stage IV and has frequent bouts of anemia. Outpatient labs revealed a hemoglobin of 6.6. He denies excessive fatigue or
chest tightness. Reports a persistent cough for the past 3 weeks, states 'everybody at the [facility] has this'. Denies fevers or purulent sputum. No shortness of breath.
Past History
<Aston Metzger PA-C - Last Filed: 04/23/25 18:13>
Past History
ED Past Medical History: CAD, CHF, HTN, Hypercholesterolemia, NIDDM and Other (CKD, COPD, A-fib)
ED Past Surgical History: Cardiac (pacer)
Social History
Tobacco: Non-smoker
Alcohol: None
Drug: None
Living: [facility]
Review of Systems
<Aston Metzger PA-C - Last Filed: 04/23/25 18:13>
Review of Systems
Allergies reviewed?: Yes
All Other Systems: ROS reviewed and negative except as documented in HPI and ROS
Phy Exam
<Aston Metzger PA-C - Last Filed: 04/23/25 18:13>
Physical Exam
Physical Exam:
GEN: Well appearing, NAD, WDWN
HEENT: Oral mucosa moist, no scleral icterus
Cardiac: Regular rate
Lung: No respiratory distress, no tachypnea, lungs clear to auscultation
MSK: No gross deformity or injuries
Skin: Good color, no pallor or jaundice, no rashes
Neuro: AO x3, moves all extremities freely
Psych: Calm, cooperative
Course
<Aston Metzger PA-C - Last Filed: 04/23/25 18:13>
Orders/Labs/Results
Orders:
Orders
04/22/25 11:38
Type+Screen Urgent
CMP [Comprehensive Metabolic Panel] Urgent
Complete Blood Count/With Diff Urgent
04/22/25 13:06
CR Chest - 2 Views Urgent
Comment:
Reason For Exam: cough
04/22/25 15:27
Blood Bank Products [* Blood Bank Products] Urgent
Blood Bank Products: *Packed RBC Leuko (PRBC's
Quantity: 1
Transfuse Today: Yes
Reason: Anemia
Furosemide [Lasix] 20 mg IV ONCE ONE
Potassium Chloride [KCl] 20 meq PO NOW STA
04/22/25 16:15
Benzonatate [Tessalon Perles] 200 mg PO NOW STA
Abnormal Lab Results
04/22/25
11:38
RBC 3.25 L 10^6/uL
(4.70-6.10)
Hgb 7.4 L g/dL
(13.0-18.0)
Hct 25.8 L %
(39.0-52.0)
MCV 79.4 L fL
(80.0-94.0)
MCH 22.8 L pg
(27.0-31.0)
MCHC 28.7 L g/dL
(33.0-37.0)
RDW 17.7 H %
(11.5-14.5)
Absolute Lymphs (auto) 0.7 L 10^3/uL
(1.2-3.4)
Absolute Monos (auto) 0.7 H 10^3/uL
(0.1-0.6)
Neutrophils % 76.4 H %
(42.2-75.2)
Lymphocytes % 9.6 L %
(20.5-51.1)
Monocytes % 9.8 H %
(1.7-9.3)
BUN 34 H mg/dl
(9-20)
Creatinine 3.3 H mg/dL
(0.7-1.3)
Glucose 182 H mg/dl
(70-99)
Calcium 8.3 L mg/dl
(8.4-10.2)
AST 14 L U/L
(17-59)
Crossmatch IS Only See Detail
04/22/25 11:38
04/22/25 11:38
Vital Signs
Initial and Last Documented VS:
Initial Vital Signs
Temp Pulse Resp BP
98.3 F 78 20 144/67
04/22/25 11:18 04/22/25 11:18 04/22/25 11:18 04/22/25 11:18
Last Documented Vital Signs
Temp Pulse Resp BP Pulse Ox
98.2 F 76 17 142/71 92
04/22/25 19:51 04/22/25 19:51 04/22/25 19:51 04/22/25 19:51 04/22/25 19:51
<Marline Epps PA-C - Last Filed: 04/23/25 00:33>
Orders/Labs/Results
Orders:
Orders
04/22/25 11:38
Type+Screen Urgent
CMP [Comprehensive Metabolic Panel] Urgent
Complete Blood Count/With Diff Urgent
04/22/25 13:06
CR Chest - 2 Views Urgent
Comment:
Reason For Exam: cough
04/22/25 15:27
Blood Bank Products [* Blood Bank Products] Urgent
Blood Bank Products: *Packed RBC Leuko (PRBC's
Quantity: 1
Transfuse Today: Yes
Reason: Anemia
Furosemide [Lasix] 20 mg IV ONCE ONE
Potassium Chloride [KCl] 20 meq PO NOW STA
04/22/25 16:15
Benzonatate [Tessalon Perles] 200 mg PO NOW STA
Abnormal Lab Results
04/22/25
11:38
RBC 3.25 L 10^6/uL
(4.70-6.10)
Hgb 7.4 L g/dL
(13.0-18.0)
Hct 25.8 L %
(39.0-52.0)
MCV 79.4 L fL
(80.0-94.0)
MCH 22.8 L pg
(27.0-31.0)
MCHC 28.7 L g/dL
(33.0-37.0)
RDW 17.7 H %
(11.5-14.5)
Absolute Lymphs (auto) 0.7 L 10^3/uL
(1.2-3.4)
Absolute Monos (auto) 0.7 H 10^3/uL
(0.1-0.6)
Neutrophils % 76.4 H %
(42.2-75.2)
Lymphocytes % 9.6 L %
(20.5-51.1)
Monocytes % 9.8 H %
(1.7-9.3)
BUN 34 H mg/dl
(9-20)
Creatinine 3.3 H mg/dL
(0.7-1.3)
Glucose 182 H mg/dl
(70-99)
Calcium 8.3 L mg/dl
(8.4-10.2)
AST 14 L U/L
(17-59)
Crossmatch IS Only See Detail
04/22/25 11:38
04/22/25 11:38
Vital Signs
Initial and Last Documented VS:
Initial Vital Signs
Temp Pulse Resp BP
98.3 F 78 20 144/67
04/22/25 11:18 04/22/25 11:18 04/22/25 11:18 04/22/25 11:18
Last Documented Vital Signs
Temp Pulse Resp BP Pulse Ox
98.2 F 76 17 142/71 92
04/22/25 19:51 04/22/25 19:51 04/22/25 19:51 04/22/25 19:51 04/22/25 19:51
<Aston Metzger PA-C - Last Filed: 04/23/25 18:13>
MDM/Problems Addressed
MDM/Problems Addressed:
Likely recurrent anemia of chronic disease, no evidence of bleed given normal BUN and lack of melanotic stool. Will transfuse and discharge. His chest x-ray does show pulmonary edema however this is comparable to past chest x-rays, he has no acute
shortness of breath to suggest CHF exacerbation. Will give diuresis with blood to prevent volume overload
<Aston Metzger PA-C - Last Filed: 04/23/25 18:13>
*Pulse Oximetry
SaO2: 96
Oxygen Mode of Delivery: Room air
<Marline Epps PA-C - Last Filed: 04/23/25 00:33>
*Pulse Oximetry
Patient hypoxic: no (92)
*Critical Care Note
Total Time (30-74mins, 75-104mins- exclusive of procedures): Not Applicable
<Marline Epps PA-C - Last Filed: 04/23/25 00:33>
Update Note
Update Note:
Patient was reexamined by me after signout pending blood transfusion. He has known CHF on Lasix and chronic anemia. Patient is here from [facility] with a low hemoglobin. His baseline is between 7 and 8. He was 7.4. The plan was to give
him 1 unit of blood along with Lasix and transport back to the facility. Patient is very strongly against admission. His x-ray was independently reviewed and does have pulmonary edema. His pulse ox is anywhere between 90 and 93% on room air. He
says he is not dyspneic. I felt hesitant about sending him back to the facility rather than admitting him given his pulse ox being slightly low with the pulmonary edema on chest x-ray however the patient again says he will not stay in the hospital
and will return if he gets worse.
ED Attending Note
<Aston Metzger PA-C - Last Filed: 04/23/25 18:13>
-
Portions of this chart may have been created with voice recognition software.� Occasional wrong word or��sound alike� substitutions may have occurred due to the inherent limitations of voice recognition software.
Discharge Plan
Departure
Patient Disposition: Home (Routine Discharge)
Date of Disposition: 04/22/25
Time of Disposition: 16:34
Patient with high blood pressure during this ER visit?: No
Discharge Problem:
Anemia in chronic kidney disease (CKD)
Prescriptions:
No Action
acetaminophen [Tylenol] 325 mg Tablet
650 mg PO Q4HPRN PRN (Reason: mild pain/fever)
trazodone 50 mg Tablet
75 mg PO HSPRN PRN (Reason: sleep)
amiodarone 200 mg Tablet
200 mg PO DAILY
isosorbide mononitrate 30 mg Tablet Extended Release 24 Hr
30 mg PO Q12H
aspirin 81 mg Tablet,Delayed Release (Dr/Ec)
81 mg PO DAILY
sodium bicarbonate 650 mg Tablet
650 mg PO BID
ezetimibe [Zetia] 10 mg Tablet
10 mg PO QPM
Eliquis 5 mg Tablet
5 mg PO BID
hydralazine 50 mg Tablet
50 mg PO TID 30 Days Qty: 90 0RF
carvedilol 12.5 mg Tablet
12.5 mg PO BID 30 Days Qty: 60 0RF
calcium carbonate-vitamin D3 [Calcium 500 + D] 500 mg-5 mcg (200 unit) Tablet
1 tab PO BID
potassium chloride 10 mEq Capsule, Extended Release
40 meq PO DAILY
ascorbic acid (vitamin C) 500 mg Tablet
500 mg PO MOWEFR@0830,1830
furosemide 80 mg Tablet
80 mg PO BID
bisacodyl 10 mg Suppository
10 mg FL [id number] PRN (Reason: no BM and lactulose is ineffective)
nitroglycerin 0.4 mg Tablet, Sublingual
0.4 mg SUBLINGUAL [id number] PRN (Reason: chest pain/angina)
ergocalciferol (vitamin D2) 1,250 mcg (50,000 unit) Capsule
1,250 mcg PO TU
calcitriol 0.25 mcg Capsule
0.25 mcg PO MOWEFR
lactulose 10 gram/15 mL Solution
20 g PO HSPRN PRN (Reason: constipation)
cholecalciferol (vitamin D3) [Vitamin D3] 25 mcg (1,000 unit) Tablet
25 mcg PO DAILY
ferrous gluconate 324 mg (38 mg iron) Tablet
324 mg PO DAILY
bumetanide 2 mg tablet
2 mg PO DAILYPRN PRN (Reason: gain of 2 pounds in 2 days or 5 pounds in 1 week)
lidocaine 4 % Cream
1 applic TOPICAL QPM
ipratropium-albuterol 0.5 mg-3 mg(2.5 mg base)/3 mL Solution For Nebulization
3 ml INHALATION R Q4HPRN PRN (Reason: sob)
dextromethorphan-guaifenesin [Diabetic Tussin DM] 10-100 mg/5 mL Liquid
10 ml PO Q4HPRN PRN (Reason: cough)
sennosides-docusate sodium [Senna-S] 8.6-50 mg Tablet
1 tab-cap PO MOWEFR
sennosides-docusate sodium [Senna-S] 8.6-50 mg Tablet
2 tab-cap PO DAILYPRN PRN (Reason: constipation)
levothyroxine [Synthroid] 200 mcg Tablet
200 mcg PO HS
loratadine 10 mg Tablet
10 mg PO Q48H@1830
amlodipine [Norvasc] 10 mg Tablet
10 mg PO DAILY
Referrals:
UNKNOWN - PT DOES,NOT KNOW [Family Provider]
Interventions
Interventions:
*Risk Screen - Suicide Last Done: 04/22/25 11:18
*General Assessment Last Done: 04/22/25 11:18
*Neglect/Abuse Screening Last Done: 04/22/25 11:18
*ED- Fall Risk Assessment Last Done: 04/22/25 15:13
*ED COVID-19 Vaccine History Last Done: 04/22/25 11:18
*ED Influenza Vaccine History Last Done: 04/22/25 11:18
*Nursing Disposition Last Done: 04/22/25 19:51
Discharge Date and Time
Discharge Date/Time: 04/22/25 19:56
Print Language: UKRAINIAN
[2025-04-22 12:03] LABS: ALT (SGPT) 12 U/L (0-50); AST (SGOT) 14 U/L (17-59); Albumin 4.1 g/dl (3.5-5.0); Alkaline Phosphatase 82 U/L (38-126); Blood Urea Nitrogen 34 mg/dl (9-20); Calcium 8.3 mg/dl (8.4-10.2); Carbon Dioxide 26 mmol/L (22-30); Chloride 104 mmol/L (98-107); Glucose 182 mg/dl (70-99); Hematocrit 25.8 % (39.0-52.0); Hemoglobin 7.4 g/dL (13.0-18.0); Mean Corp Hgb Conc. 28.7 g/dL (33.0-37.0); Mean Corpuscular Volume 79.4 fL (80.0-94.0); Nucleated Red Blood Cells % 0 % (-); Platelet Count 199 10^3/uL (130-400); Potassium 3.6 mmol/L (3.5-5.1); Red Cell Dist. Width 17.7 % (11.5-14.5); Sodium 139 mmol/L (135-145); Total Protein 6.7 g/dl (6.3-8.2); eGFR 19.20
[2025-04-22 12:09] LABS: Anisocytosis 1+; Hypochromasia 2+; Normal RBC Morphology No; Polychromasia 1+
[2025-04-22 12:10] LABS: Acanthocytes FEW; Ovalocytes 1+
[2025-04-22] MEDS: KCL 20 MEQ PO (15:42)
[2025-04-22] MEDS: LASIX 20 MG IV (15:51)
[2025-04-22] MEDS: TESSALON PERLES 200 MG PO (16:18)
== END 2025-04-22 19:56 | disposition home or self-care (01) ==
LOC: EMR 11:08
PROVIDERS: EMERGENCY PHYSICIAN Emergency Medicine
DX: I13.0 Hypertensive heart and chronic kidney disease with heart failure and stage 1 through stage 4 chronic kidney disease, or unspecified chronic kidney disease (principal); E11.22 Type 2 diabetes mellitus with diabetic chronic kidney disease; N18.4 Chronic kidney disease, stage 4 (severe); I50.9 Heart failure, unspecified; D63.1 Anemia in chronic kidney disease; E78.00 Pure hypercholesterolemia, unspecified; I25.10 Atherosclerotic heart disease of native coronary artery without angina pectoris; I48.91 Unspecified atrial fibrillation; J44.9 Chronic obstructive pulmonary disease, unspecified
CPT/HCPCS: 36430; 99285; 96374; 71046; 80053; 85025; 86850; 86900; 86901; 86920; P9016

== ENCOUNTER → 2025-05-07 10:12 | Outpatient (REF) | payer MEDICARE, BC, SELFPAY ==
[2025-05-07 10:54] LABS: Blood Urea Nitrogen 31 mg/dl (9-20); Calcium 8.9 mg/dl (8.4-10.2); Carbon Dioxide 33 mmol/L (22-30); Chloride 97 mmol/L (98-107); Glucose 87 mg/dl (70-99); Potassium 3.8 mmol/L (3.5-5.1); Sodium 133 mmol/L (135-145); eGFR > 60.00
== END ==
LOC: OLABN 10:12
PROVIDERS: ATTENDING PHYSICIAN Internal Medicine Geriatric Medicine
DX: R60.9 Edema, unspecified (principal)
CPT/HCPCS: 36415; 80048

== ENCOUNTER → 2025-05-08 16:46 | Outpatient (REF) | payer MEDICARE, BC, SELFPAY ==
[2025-05-08 17:40] LABS: Blood Urea Nitrogen 42 mg/dl (9-20); Calcium 9.0 mg/dl (8.4-10.2); Carbon Dioxide 29 mmol/L (22-30); Chloride 101 mmol/L (98-107); Glucose 150 mg/dl (70-99); Potassium 3.9 mmol/L (3.5-5.1); Sodium 133 mmol/L (135-145); eGFR 19.93
== END ==
LOC: OLAB 16:46
PROVIDERS: ATTENDING PHYSICIAN Internal Medicine Geriatric Medicine
DX: R60.9 Edema, unspecified (principal)
CPT/HCPCS: 80048

== ENCOUNTER → 2025-05-09 09:16 | Outpatient (REF) | payer MEDICARE, BC, SELFPAY ==
[2025-05-09 10:59] LABS: Blood Urea Nitrogen 43 mg/dl (9-20); Calcium 8.9 mg/dl (8.4-10.2); Carbon Dioxide 26 mmol/L (22-30); Chloride 101 mmol/L (98-107); Glucose 206 mg/dl (70-99); Potassium 3.7 mmol/L (3.5-5.1); Sodium 132 mmol/L (135-145); eGFR 17.89
== END ==
LOC: OLABN 09:16
PROVIDERS: ATTENDING PHYSICIAN Internal Medicine Geriatric Medicine
DX: R60.9 Edema, unspecified (principal)
CPT/HCPCS: 80048

== ENCOUNTER → 2025-05-10 18:21 | Outpatient (REF) | payer MEDICARE, BC, SELFPAY ==
[2025-05-10 18:47] LABS: Blood Urea Nitrogen 41 mg/dl (9-20); Calcium 9.2 mg/dl (8.4-10.2); Carbon Dioxide 27 mmol/L (22-30); Chloride 99 mmol/L (98-107); Glucose 174 mg/dl (70-99); Potassium 3.4 mmol/L (3.5-5.1); Sodium 133 mmol/L (135-145); eGFR 17.89
== END ==
LOC: OLABN 18:21
PROVIDERS: ATTENDING PHYSICIAN Internal Medicine Geriatric Medicine
DX: R60.9 Edema, unspecified (principal)
CPT/HCPCS: 36415; 80048

== ENCOUNTER → 2025-05-19 10:19 | Outpatient (REF) | payer MEDICARE, BC, SELFPAY ==
[2025-05-19 14:28] LABS: TSH 3.99 uIU/ml (0.47-4.68)
== END ==
LOC: OLABN 10:19
PROVIDERS: ATTENDING PHYSICIAN Internal Medicine Geriatric Medicine
DX: E03.9 Hypothyroidism, unspecified (principal)
CPT/HCPCS: 36415; 84443

== ENCOUNTER → 2025-05-26 16:21 | Outpatient (REF) | payer MEDICARE, BC, SELFPAY ==
[2025-05-26 18:18] LABS: Iron < 20 ug/dl (49-181)
[2025-05-26 18:21] LABS: Total Iron Binding Capacity 376 ug/dl (261-462)
[2025-05-26 18:26] LABS: Hematocrit 22.4 % (39.0-52.0); Hemoglobin 6.1 g/dL (13.0-18.0); Mean Corp Hgb Conc. 27.2 g/dL (33.0-37.0); Mean Corpuscular Volume 79.4 fL (80.0-94.0); Platelet Count 162 10^3/uL (130-400); Red Cell Dist. Width 18.3 % (11.5-14.5)
[2025-05-26 18:59] LABS: Ferritin 24.7 ng/ml (17.9-464.0)
[2025-05-26 20:07] LABS: Nucleated Red Blood Cells % 0 % (-)
[2025-05-26 20:08] LABS: Anisocytosis 2+; Hypochromasia 1+; Macrocytosis 3+; Polychromasia 1+
[2025-05-26 20:13] LABS: Normal RBC Morphology No
== END ==
LOC: OLABN 16:21
PROVIDERS: ATTENDING PHYSICIAN Internal Medicine Geriatric Medicine
DX: N18.30 Chronic kidney disease, stage 3 unspecified (principal); E03.9 Hypothyroidism, unspecified
CPT/HCPCS: 36415; 82728; 83540; 83550; 83880; 85025

== ENCOUNTER 2025-05-27 14:25 | Inpatient (IN) | payer MEDICARE, BC, SELFPAY ==
[2025-05-27] VITALS (11 sets, daily range): BP systolic 124–162; BP diastolic 68–90; BMI 37.9; BMI 37.1
[2025-05-27 12:14] LABS: Hematocrit 22.2 % (39.0-52.0); Hemoglobin 6.1 g/dL (13.0-18.0); Mean Corp Hgb Conc. 27.5 g/dL (33.0-37.0); Mean Corpuscular Volume 79.3 fL (80.0-94.0); Nucleated Red Blood Cells % 0 % (-); Platelet Count 155 10^3/uL (130-400); Red Cell Dist. Width 18.0 % (11.5-14.5)
[2025-05-27 12:18] LABS: APTT 38.6 Sec (23.4-35.0); INR 1.47; PT 18.3 Sec (11.4-14.6)
[2025-05-27 12:26] LABS: Potassium 4.0 mmol/L (3.5-5.1)
[2025-05-27 12:27] LABS: ALT (SGPT) < 10 U/L (0-50); AST (SGOT) 11 U/L (17-59); Albumin 3.7 g/dl (3.5-5.0); Alkaline Phosphatase 70 U/L (38-126); Blood Urea Nitrogen 31 mg/dl (9-20); Calcium 8.3 mg/dl (8.4-10.2); Carbon Dioxide 26 mmol/L (22-30); Chloride 103 mmol/L (98-107); Estimated Creatinine Clearance 32 ml/min; Glucose 139 mg/dl (70-99); Sodium 135 mmol/L (135-145); Total Protein 6.1 g/dl (6.3-8.2); eGFR 19.93
--- NOTE | 2025-05-27 12:38 | ED.GENMED ---
History of Present Illness
General
Chief Complaint: Abnormal Lab Value
Time Seen by Provider: 05/27/25 12:14
History of Present Illness
History of Present Illness:
Patient is a 70 year old man with history of CKD, CHF, CAD, HTN, HLD presenting to the emergency department with a low hemoglobin. patient states that this is ongoing from his kidney disease. denies any melene, hematochezia, hematemesis. Does note
that he is more tired and winded. He also states his legs are also more swollen. He is on lasix. no chest pain. no lightheadedness dizzness. no isolated weakness.
Past History
Past History
ED Past Medical History: CAD, CHF, HTN, Hypercholesterolemia, NIDDM and Other (CKD, COPD, A-fib)
ED Past Surgical History: Cardiac (pacer)
Social History
Tobacco: Non-smoker
Alcohol: None
Drug: None
Living: [facility]
Phy Exam
Physical Exam
Physical Exam:
GENERAL: in no acute distress
HEENT: normocephalic, extraocular movements intact, moist oral mucosa, pale conjunctiva
NECK: normal inspection
RESPIRATORY: no respiratory distress, Rales at the bases
CARDIOVASCULAR: regular rate and rhythm
ABDOMEN/: soft, non-distended, non-tender to palpation, no rebound or guarding
EXTREMITIES: non-tender, bilateral lower extremity edema
NEUROLOGIC: awake and alert, moves all extremities
SKIN: warm
Course
Orders/Labs/Results
Orders:
Orders
05/27/25 11:25
Cardiac Monitoring- Treatment ONCE
IV Insert/Care/Rem.- Treatment PRN
O2 Therapy [RESP] Urgent
Titrate/Wean O2 to maintain O2 sat greater than (%): 93
Special Instructions: MAINTAIN CONTINOUS O2 SATS > OR = 93%
Pulse Ox/spot Check [RESP] Urgent
Quantity: 1
Special Instructions: ON ROOM AIR
05/27/25 11:26
Electrocardiogram (*1) Urgent
Reason for Study: Other
Other Reason for Exam: low HBG
EKG- Treatment ONCE
05/27/25 11:43
Type+Screen Urgent
Complete Blood Count/With Diff Urgent
Comprehensive Metabolic Panel Urgent
PTT Urgent
Prothrombin Time Urgent
05/27/25 12:27
CR Chest - 2 Views Urgent
Comment:
Reason For Exam: hypoxia, rales
05/27/25 13:06
* Blood Bank Products Urgent
Blood Bank Products: *Packed RBC Leuko (PRBC's
Quantity: 1
Transfuse Today: Yes
Reason: Anemia
Abnormal Lab Results
05/27/25
11:43
RBC 2.80 L 10^6/uL
(4.70-6.10)
Hgb 6.1 L* g/dL
(13.0-18.0)
Hct 22.2 L %
(39.0-52.0)
MCV 79.3 L fL
(80.0-94.0)
MCH 21.8 L pg
(27.0-31.0)
MCHC 27.5 L g/dL
(33.0-37.0)
RDW 18.0 H %
(11.5-14.5)
Absolute Lymphs (auto) 0.5 L 10^3/uL
(1.2-3.4)
Absolute Monos (auto) 0.7 H 10^3/uL
(0.1-0.6)
Neutrophils % 82.2 H %
(42.2-75.2)
Lymphocytes % 6.8 L %
(20.5-51.1)
PT 18.3 H Sec
(11.4-14.6)
APTT 38.6 H Sec
(23.4-35.0)
BUN 31 H mg/dl
(9-20)
Creatinine 3.2 H mg/dL
(0.7-1.3)
Glucose 139 H mg/dl
(70-99)
Calcium 8.3 L mg/dl
(8.4-10.2)
AST 11 L U/L
(17-59)
Total Protein 6.1 L g/dl
(6.3-8.2)
05/27/25 11:43
05/27/25 11:43
Vital Signs
Initial and Last Documented VS:
Initial Vital Signs
Temp Pulse Resp BP Pulse Ox
97.8 F 77 22 124/68 93
05/27/25 11:29 05/27/25 11:29 05/27/25 11:29 05/27/25 11:29 05/27/25 11:29
Last Documented Vital Signs
Temp Pulse Resp BP Pulse Ox
97.8 F 70 23 125/86 93
05/27/25 11:29 05/27/25 12:00 05/27/25 12:00 05/27/25 12:00 05/27/25 12:41
MDM/Problems Addressed
Differential Diagnosis Includes:
Patient is a 70 year old man withhistory of CKD, CHF, HTN, HLD presenting to the ED with low hemoglobin and leg swelling. On arrival patient's pulse ox is in the low 90s and occasionally will go to the [id number]. He does have rales and bilateral lower
extremity edema. Concern for CHF exacerbation, anemia, worsening renal function. Will check blood work ekg chest xray. patient will benefit from IV diuresis.
*Pulse Oximetry
SaO2: 93
Oxygen Mode of Delivery: Room air
Patient hypoxic: no
*Critical Care Note
Total Time (30-74mins, 75-104mins- exclusive of procedures): Not Applicable
Update Note
Update Note:
Blood work notable for hemoglobin of 6.1. Chest x-ray per my interpretation with pulmonary vascular congestion. Will transfuse a unit of blood. Discussed with hospitalist who accepted patient to their service for diuresis and hemoglobin trending.
ED Attending Note
-
Portions of this chart may have been created with voice recognition software.� Occasional wrong word or��sound alike� substitutions may have occurred due to the inherent limitations of voice recognition software.
Discharge Plan
Departure
Patient Disposition: Admit
Date of Disposition: 05/27/25
Time of Disposition: 13:07
Presentation/result/management discussed w/ accepting MD/DO: Hospitalist
Discharge Problem:
Anemia
Prescriptions:
No Action
acetaminophen [Tylenol] 325 mg Tablet
650 mg PO Q4HPRN PRN (Reason: mild pain/fever)
amiodarone 200 mg Tablet
200 mg PO DAILY
isosorbide mononitrate 30 mg Tablet Extended Release 24 Hr
30 mg PO Q12H
sodium bicarbonate 650 mg Tablet
650 mg PO BID
ezetimibe [Zetia] 10 mg Tablet
10 mg PO QPM
Eliquis 5 mg Tablet
5 mg PO BID
hydralazine 50 mg Tablet
50 mg PO TID 30 Days Qty: 90 0RF
carvedilol 12.5 mg Tablet
12.5 mg PO BID 30 Days Qty: 60 0RF
potassium chloride 10 mEq Capsule, Extended Release
40 meq PO DAILY
ascorbic acid (vitamin C) 500 mg Tablet
500 mg PO MOWEFR@0830,1830
furosemide 80 mg Tablet
80 mg PO BID
bisacodyl 10 mg Suppository
10 mg IA Q13DOCB PRN (Reason: no BM and lactulose is ineffective)
nitroglycerin 0.4 mg Tablet, Sublingual
0.4 mg SUBLINGUAL [id number] PRN (Reason: chest pain/angina)
lactulose 10 gram/15 mL Solution
20 g PO HSPRN PRN (Reason: constipation)
ferrous gluconate 324 mg (38 mg iron) Tablet
324 mg PO DAILY
bumetanide 2 mg tablet
2 mg PO DAILYPRN PRN (Reason: gain of 2 pounds in 2 days or 5 pounds in 1 week)
lidocaine 4 % Cream
1 applic TOPICAL QPM
ipratropium-albuterol 0.5 mg-3 mg(2.5 mg base)/3 mL Solution For Nebulization
3 ml INHALATION R Q4HPRN PRN (Reason: sob)
sennosides-docusate sodium [Senna-S] 8.6-50 mg Tablet
2 tab-cap PO DAILYPRN PRN (Reason: constipation)
levothyroxine [Synthroid] 200 mcg Tablet
200 mcg PO HS
loratadine 10 mg Tablet
10 mg PO Q48H@1830
amlodipine [Norvasc] 10 mg Tablet
10 mg PO DAILY
dextromethorphan-guaifenesin [Diabetic Tussin DM] 10-100 mg/5 mL Liquid
10 ml PO Q4HPRN PRN (Reason: cough)
Interventions
Interventions:
*Risk Screen - Suicide Last Done: 05/27/25 11:29
*General Assessment Last Done: 05/27/25 11:27
*Neglect/Abuse Screening Last Done: 05/27/25 11:48
*ED- Fall Risk Assessment Last Done: 05/27/25 11:27
*ED COVID-19 Vaccine History Last Done: 05/27/25 11:27
*ED Influenza Vaccine History Last Done: 05/27/25 11:27
Discharge Date and Time
Print Language: LATVIAN
--- NOTE | 2025-05-27 13:30 | HPS.HSE ---
Addendum entered and electronically signed by Carlos Alberto Rodriguez MD 05/27/25 14:50:
This is an addendum to H&P written by Norma Gee on 05/27/2025. �Patient seen and examined independently with PA.
70-year-old male past medical history of iron deficiency anemia, paroxysmal atrial fibrillation on Eliquis, CAD status post CABG, HFrEF with ICD, hypertension, hyperlipidemia, diabetes, CKD 4, COPD, hypothyroidism, presenting from [facility]
for hemoglobin of 6.1. �Shortness of breath today, lightheadedness. �No changes in bowel movements. �10 pound weight gain since March.
Vital signs unremarkable.
Labs showed microcytic anemia with hemoglobin 6.1. �Baseline hemoglobin 7.5-8. �Iron level less than 20. �Ferritin of 24. �TIBC 176.
Patient with acute on chronic symptomatic anemia suspect mixed anemia of kidney disease/ acute blood loss anemia although no history of rectal bleeding. �Ferritin extremely low which is suspicious for blood loss.
Check Hemoccult. �1 unit of blood. �Increase ferrous gluconate given allergic to IV iron. �Add vitamin C. �Patient declines workup for GI bleeding. �Given recent weight gain we will increase diuresis to 80 IV Lasix twice daily.
Original Note:
Family Physician
-
Family Physician: NOT KNOW UNKNOWN - PT DOES
Chief Complaint
-
Abnormal Labs
History of Present Illness
Patient is a 70 y/o male past medical history of CAD, CHF, CKD, HTN, DM and COPD who presents with abnormal labs. 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 He had blood work yesterday that reveal Hgb 6.1. Patient has a long standing
history of anemia and does that a daily iron supplement but this is notably lower than his baseline of ~7.5. Patient reports some associated shortness of breath and dizziness/lightheadedness this morning. He denies chest pain. He denies black or
bloody stools.
Medical History
Past Medical History
Past Medical History: Reports Other
Additional Past Medical History:
Coronary Artery Disease s/p CABG and Stent
Chronic HFpEF with Diastolic Dysfunction
Paroxysmal Atrial Fibrillation
Essential Hypertension
Hyperlipidemia
Diabetes Mellitus, Type II
CKD Stage IV
COPD
Hypothyroidism
Past Surgical History: Reports Other
Additional Past Surgical History:
CABG
Cardiac Stents
ICD
Right Shoulder Surgery
Left Elbow Surgery
Bilateral Knee Surgery
Social History
Tobacco: Non-smoker
Alcohol: None
Drug: None
Living: Group Home
Family History
Family History: Not pertinent
Allergies / Home Medications
Allergies reflects when Allergies were last updated in [employer].
Home Medications with original date entered in [employer]
Allergy/Medication List:
Allergies
Allergy/AdvReac Type Severity Reaction Status Date / Time
cinnamon Allergy Anaphylaxis Verified 05/27/25 11:34
Home Medications
acetaminophen 325 mg tablet (Tylenol) 650 mg PO Q4HPRN PRN mild pain/fever 03/24/24
amiodarone 200 mg tablet 200 mg PO DAILY Arrhythmia 03/24/24
apixaban 5 mg tablet (Eliquis) 5 mg PO BID Blood Clot Prevention/Tx 03/24/24
ezetimibe 10 mg tablet (Zetia) 10 mg PO QPM High Cholesterol 03/24/24
isosorbide mononitrate 30 mg tablet,extended release 24 hr 30 mg PO Q12H Heart Disease/Condition 03/24/24
sodium bicarbonate 650 mg tablet 650 mg PO BID Supplement 03/24/24
carvedilol 12.5 mg tablet 12.5 mg PO BID Heart Failure 1 month #60 tabs 04/01/24
hydralazine 50 mg tablet 50 mg PO TID Heart Failure 1 month #90 tabs 04/01/24
ascorbic acid (vitamin C) 500 mg tablet 500 mg PO MOWEFR@0830,1830 Supplement 09/26/24
bisacodyl 10 mg rectal suppository 10 mg AR [id number] PRN no BM and lactulose is ineffective 09/26/24
bumetanide 2 mg tablet 2 mg PO DAILYPRN PRN gain of 2 pounds in 2 days or 5 pounds in 1 week 09/26/24
ferrous gluconate 324 mg (38 mg iron) tablet 324 mg PO DAILY Supplement 09/26/24
furosemide 80 mg tablet 80 mg PO BID Fluid Retention/Swelling 09/26/24
lactulose 10 gram/15 mL oral solution 20 g PO HSPRN PRN constipation 09/26/24
lidocaine 4 % topical cream 1 applic topical QPM bilateral upper legs 09/26/24
nitroglycerin 0.4 mg sublingual tablet 0.4 mg sublingual [id number] PRN chest pain/angina 09/26/24
potassium chloride 10 mEq capsule,extended release 40 meq PO DAILY Electrolyte Repletion 09/26/24
ipratropium 0.5 mg-albuterol 3 mg (2.5 mg base)/3 mL nebulization soln 3 ml inhalation R Q4HPRN PRN sob 03/30/25
levothyroxine 200 mcg tablet (Synthroid) 200 mcg PO HS Thyroid 03/30/25
loratadine 10 mg tablet 10 mg PO Q48H@1830 Allergies 03/30/25
sennosides 8.6 mg-docusate sodium 50 mg tablet (Senna-S) 2 tab-cap PO DAILYPRN PRN constipation 03/30/25
amlodipine 10 mg tablet (Norvasc) 10 mg PO DAILY Blood Pressure 04/22/25
dextromethorphan-guaifenesin 10 mg-100 mg/5 mL oral liquid (Diabetic Tussin DM) 10 ml PO Q4HPRN PRN cough 05/27/25
Review of Systems
-
A 12 point ROS was completed and negative except as noted: Yes
Constitutional: Denies Fever or Chills
Respiratory: Reports Trouble Breathing; Denies Cough
Cardiac: Denies Chest Pain or Palpitations
Abdomen/GI: Denies Abdominal Pain, Nausea, Vomiting, Diarrhea, Bloody Stools or Black Stools
Physical Exam
Vital Signs
Vital Signs
Temp Pulse Resp BP Pulse Ox
97.8 F 70 17 126/89 92
05/27/25 11:29 05/27/25 13:07 05/27/25 13:07 05/27/25 13:07 05/27/25 13:07
Physical Exam
General: Comfortable, Conversant, Obese and Other (Appears pale)
HEENT: Anicteric and Moist mucous membranes
Respiratory: Clear and Non Labored Respirations
Cardiac: S1/S2 and Regular Rhythm; No Murmur
GI: Soft and Non Tender
Musculoskeletal: No Clubbing, No Cyanosis and Other (+4 pitting edema bilateral lower extremities which patient state is chronic)
Skin: Warm, Dry and Other (Noted weeping of left lower extremity)
Neuro: Awake, Alert, Oriented and Nonfocal/grossly intact
Psych: Calm
Laboratory Results
-
05/27/25 11:43
05/27/25 11:43
Laboratory Results
PT 18.3 Sec (11.4-14.6) H 05/27/25 11:43
INR 1.47 05/27/25 11:43
APTT 38.6 Sec (23.4-35.0) H 05/27/25 11:43
Total Bilirubin 0.5 mg/dl (0.2-1.3) 05/27/25 11:43
AST 11 U/L (17-59) L 05/27/25 11:43
ALT < 10 U/L (0-50) 05/27/25 11:43
Alkaline Phosphatase 70 U/L (38-126) 05/27/25 11:43
Data Reviewed
-
Lab Data: Labs Reviewed by me
Old Records: Reviewed
Impression/Plan
-
Acute on Chronic Iron Deficiency Anemia
-Iron Level Less Than 20
-Patient adamantly refuses IV iron reporting adverse reaction in the past
-Increase oral iron supplement to twice a day - Add vitamin C BID to promote absorption
-Transfuse 1 units PRBCs
-Heme-test stools - Patient declines GI work-up
Acute on Chronic HFpEF with Diastolic Dysfunction
-Weight is up 10lbs from prior admission in Mar 2025
-Echo Mar 2025: Normal left ventricular size, and systolic function with EF 50-55%. Stage II diastolic dysfunction. Mild/moderate mitral regurgitation
-Continue Lasix 80mg IV BID
-Increase fluid restriction 48oz per day
-Monitor Daily Weights
Coronary Artery Disease s/p CABG and Stent
-Continue isosorbide mononitrate
Paroxysmal Atrial Fibrillation
-Continue Eliquis for anticoagulation
-Continue amiodarone and carvedilol
Essential Hypertension
-Continue amlodipine, carvedilol and hydralazine
Hyperlipidemia
-Continue ezetimibe
Diabetes Mellitus, Type II
-HgbA1c 6.8 in Mar 2025, though likely unreliable in setting of severe anemia
-Monitor sugars and continue coverage insulin
CKD Stage IV with Chronic Metabolic Acidosis
-Creatinine at baseline
-Continue sodium bicarb
Hypothyroidism
-Continue levothyroxine
DVT proph: Eliquis
Code Status: Full Code
--- NOTE | 2025-05-27 14:43 | CM ---
Chart reviewed and spoke with patient at ED bedside
Spoke with Maryana RN at [facility] where he is a LTC resident
Alert and oriented x3 and he is rooming with his there
PLOF transfer with min assist
Ambulating short distances with RW
w/c for distance
DCP is to return back to [facility]
Call [phone] C [id number] nurse

CM will continue to follow up for dcp needs
[2025-05-27 16:49] LABS: Glucose - Point of Care 151 mg/dl (70-99)
[2025-05-27] MEDS: APRESOLINE 50 MG PO ×2 (17:30→21:06)
[2025-05-27] MEDS: LASIX 80 MG IV (17:30)
[2025-05-27] MEDS: ZETIA 10 MG PO (18:02)
[2025-05-27] MEDS: COREG 12.5 MG PO (21:05)
[2025-05-27] MEDS: FEOSOL 325 MG PO (21:05)
[2025-05-27] MEDS: VITAMIN C 500 MG PO (21:05)
[2025-05-27] MEDS: IMDUR (EXTENDED RELEASE) 30 MG PO (21:05)
[2025-05-27] MEDS: ELIQUIS 5 MG PO (21:05)
[2025-05-27] MEDS: SYNTHROID 200 MCG PO (21:06)
[2025-05-27] MEDS: SODIUM BICARBONATE 650 MG PO (21:06)
[2025-05-27 21:28] LABS: Glucose - Point of Care 178 mg/dl (70-99)
--- NOTE | 2025-05-27 22:45 | W.PN.UPDATE ---
Update Note
Progress Note Update
patient reports to RN that his code status is Full code.
Patient seen and evaluated. Ox3 able to make his decisions. Addressed the Forms from [facility] stating DNR that he has signed. He says he has been trying to change.
Full Code explained. verbalized understanding. Code status changed.
[2025-05-28] VITALS (8 sets, daily range): BP systolic 123–148; BP diastolic 64–83; BMI 36.6
[2025-05-28 07:40] LABS: Glucose - Point of Care 141 mg/dl (70-99)
[2025-05-28 08:37] LABS: Blood Urea Nitrogen 31 mg/dl (9-20); Calcium 8.5 mg/dl (8.4-10.2); Carbon Dioxide 25 mmol/L (22-30); Chloride 102 mmol/L (98-107); Estimated Creatinine Clearance 30 ml/min; Glucose 107 mg/dl (70-99); Potassium 4.0 mmol/L (3.5-5.1); Sodium 134 mmol/L (135-145); eGFR 19.20
[2025-05-28 08:41] LABS: Hematocrit 24.6 % (39.0-52.0); Hemoglobin 6.8 g/dL (13.0-18.0); Mean Corp Hgb Conc. 27.6 g/dL (33.0-37.0); Mean Corpuscular Volume 80.7 fL (80.0-94.0); Platelet Count 169 10^3/uL (130-400); Red Cell Dist. Width 17.9 % (11.5-14.5)
[2025-05-28] MEDS: KCL 40 MEQ PO (09:25)
[2025-05-28] MEDS: SODIUM BICARBONATE 650 MG PO ×2 (09:26→20:59)
[2025-05-28] MEDS: PACERONE 200 MG PO (09:26)
[2025-05-28] MEDS: FEOSOL 325 MG PO ×2 (09:26→20:59)
[2025-05-28] MEDS: ELIQUIS 5 MG PO (09:26)
[2025-05-28] MEDS: APRESOLINE 50 MG PO ×3 (09:26→21:00)
[2025-05-28] MEDS: NORVASC 10 MG PO (09:26)
[2025-05-28] MEDS: IMDUR (EXTENDED RELEASE) 30 MG PO ×2 (09:26→21:00)
[2025-05-28] MEDS: COREG 12.5 MG PO ×2 (09:26→20:59)
[2025-05-28] MEDS: LASIX 80 MG IV ×2 (09:27→15:50)
[2025-05-28] MEDS: VITAMIN C 500 MG PO ×2 (09:27→21:00)
[2025-05-28 09:29] LABS: Glycohemoglobin (HgbA1c) 6.3 % (4.0-5.9)
--- NOTE | 2025-05-28 10:15 | CM ---
Addendum entered by Rosamaria Burgos 05/28/25 12:42:
Possible DC tomorrow. [facility] can [facility] back tomorrow. Pt is not [facility] eligible
Plan: DC to [facility] when stable, No needs
Original Note:
Pt continues on IV Lasix. On room air.
[facility] placed in [facility] per their request.
[facility]
--- NOTE | 2025-05-28 10:15 | W.PN.UPDATE ---
Update Note
Progress Note Update
I saw and evaluated the patient. I reviewed the resident�s note and agree with findings and plan as documented in the resident�s note.
Denies CP/SOB/abd pain.
Gen: NAD, AAOx3.
Eyes: EOMI, PERRLA, no scleral icterus.
Neck: supple.
CV: RRR, +S1/S2, no m/r/g.
Resp: CTAB, no rales, wheezes, or rhonchi.
Abd: +BS, soft, NT, ND
Skin: No rashes. 2+ B/L LE edema
Neuro: CN 2-12 intact, non-focal.
Psych: Normal mood and affect.
CXR: Stable mild CHF with small bilateral pleural effusions with associated atelectasis and/or pneumonia.
Acute on Chronic Iron Deficiency Anemia:
-Iron Level Less Than 20
-Patient adamantly refuses IV iron reporting adverse reaction in the past
-Increase oral iron supplement to twice a day (Vitamin C BID to promote absorption)
-s/p 1U pRBCs, transfuse another 1U pRBCs
-Heme-test stools noting that patient declines GI work-up
Acute on Chronic HFpEF:
-Weight is up 10lbs from prior admission in Mar 2025
-Echo Mar 2025: Normal left ventricular size, and systolic function with EF 50-55%. Stage II diastolic dysfunction. Mild/moderate mitral regurgitation
-Continue Lasix 80mg IV BID
-order placed for FR 48oz (not done on admission)
-daily wts, I/Os
-c/s cards
PAF:
-with severe anemia and refused for GI w/u and inability to give IV Fe the risk of Eliquis outweighs the benefit at this time. Stop Eliquis.
-cont Coreg/Amio
Other problems:
CAD s/p CABG and Stent: cont Coreg
Essential HTN: cont Imdur/Coreg/Hydralazine/Norvasc
HLD: Cont home Zetia
DM2: SSI/accuchecks
CKD4 with Chronic Metabolic Acidosis: cont NaHCO3
Hypothyroidism: Cont Levoxyl
Obesity due to excess calories
FULL/SCDs
I had an extensive discussion with the patient about his anemia. I explained that he ultimately needs a GI workup to rule out acute versus subacute GI bleeding. The patient stated that he has had 4 friends that from endoscopic
evaluation. He also stated that 'they cut me up last time I had a scope.' I tried to explain to the patient that he could pass away from severe anemia which has been recurrent. He again reiterated that he will not have any endoscopic evaluation
for his anemia. He has to leave the hospital today. I explained that I could not discharge him with hemoglobins in the 6s requiring transfusion today.
Total time spent on today's encounter was 50 minutes which included time spent in counseling the patient/family regarding diagnosis and treatment plan as listed above, goals of care, and symptom management. Case was discussed with nursing staff,
specialists, and care coordinators/case management. All labs and imaging personally reviewed by me. Remainder the time spent in detailed review of previous records, lab data, imaging, and other medical provider documentation.
[2025-05-28 11:54] LABS: Glucose - Point of Care 133 mg/dl (70-99)
--- NOTE | 2025-05-28 12:07 | W.PN.HOSP.TC ---
Today's Communication/Plan
-
Continue current medical management
Advise patient about the need for endoscopic intervention to find etiology of anemia
Continue to monitor H/H
Assessment / Plan
Assessment / Plan
Impression:
Patient is a 70 y/o male past medical history of CAD, CHF, CKD, HTN, DM and COPD who presents with abnormal labs. 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 He had blood work yesterday that reveal Hgb 6.1. Patient has a long standing
history of anemia and does that a daily iron supplement but this is notably lower than his baseline of ~7.5. Patient reports some associated shortness of breath and dizziness/lightheadedness this morning. He denies chest pain. He denies black or
bloody stools.
Plan:
#Acute on Chronic Iron Deficiency Anemia
Iron <20
Adementally refuses IV iron reporting adverse reaction in the past
Increase oral iron supplement to BID(Vitamin C BID to promote absorption)
S/p 1 U pRBCs, transfuse another 1 U pRBCs
Heme=test stool noting that patient declines GIs work-up
#Acute on Chronic Heart Failure preserved Ejection fraction
Weight is up 10 lbs from prior admission in Mar 2025
Echo Mar 2025: Normal left ventricular size, and systolic function with EF 50-55%. Stage II diastolic dysfunction. Mild/moderate mitral regurgitation
Continue Lasix 80mg IV BID
Order placed for FR 48oz (not done on admission)
Daily wts, I/Os
Cardiology consulting
#Paroxysmal Atrial Fibrillation
With severe anemia and refusal for GI w/u and inability to give IV Fe the risk of Eliquis outweighs the benefit at this time.
Stop Eliquis.
Continue Carvedilol/Amiodarone
#CAD s/p CABG and Stent: Continue Carvedilol
#Essential HTN: Continue Imdur/Carvedilol/Hydralazine/Amlodipine
#HLD: Continue home Zetia
#DM2: SSI/accuchecks
#CKD4 with Chronic Metabolic Acidosis: continue NaHCO3
#Hypothyroidism: Continue Levoxyl
#Obesity due to excess calories
Anticipated Discharge: Within 24 hours
Subjective/Interval History
-
Date of Service: May 28, 2025
As per his nurse, Mr. Magaña refused to keep taking his accu-checks as he insists that he does not have type 2 diabetes mellitus. He is also threatening to leave [facility] because he does not want to have an endoscopic evaluation for his anemia due to fear
of while on the table.
Objective Data
-
Labs:
Laboratory Results
05/28/25
07:20
WBC 7.0
Hgb 6.8 L*
Hct 24.6 L
Plt Count 169
Sodium 134 L
Potassium 4.0
Chloride 102
Carbon Dioxide 25
BUN 31 H
Creatinine 3.3 H
Glucose 107 H
Calcium 8.5
Vital Signs:
Vital Signs
Temp Pulse Resp BP Pulse Ox
97.6 F 71 18 128/73 96
05/28/25 11:03 05/28/25 11:03 05/28/25 11:03 05/28/25 11:03 05/28/25 11:03
I&O
05/27/25 05/28/25 05/29/25
06:59 06:59 06:59
Intake Total 250 / 250 0 / 0
Output Total 2099 / 2099
Balance -1850 / -1850 0 / 0
CXR: Stable mild CHF with small bilateral pleural effusions with associated atelectasis and/or pneumonia
Review of Systems
-
History Source: Patient
All other systems: Reviewed and negative
Physical Exam
-
General: No Apparent Distress
HEENT: Normocephalic and Atraumatic
Respiratory: Clear to Auscultation
Cardiac: Regular Rhythm and S1/S2
Breast: Deferred by me
GI: Soft, Nontender, Nondistended and Normal Bowel Sounds
Musculoskeletal: No Clubbing, No Cyanosis and No Edema
Skin: Other (No rashs, 2+ Bilateral LE edema)
Neuro: AO x 3
Psych: Calm
Data Reviewed
-
Diagnostic Radiology: Report Reviewed by me and Discussed with Physician
Labs: Labs Reviewed by me and Discussed with Physician
[2025-05-28 16:31] LABS: Glucose - Point of Care 154 mg/dl (70-99)
--- NOTE | 2025-05-28 17:06 | WOUNDNOTE ---
WO RN NOTE: Reviewed chart and met with patient. Patient admitted with open blister to left lower leg. Open blister was cleaned and adaptic and foam applied. Sacrum and heels intact. Pneumatic compression has been ordered. Patient stated he was
uncomfortable in his bed. This editorial writer called SPD and patient will be transferred to wide bed. Will sign off.
[2025-05-28 17:09] LABS: Hematocrit 28.5 % (39.0-52.0); Hemoglobin 8.1 g/dL (13.0-18.0); Mean Corp Hgb Conc. 28.4 g/dL (33.0-37.0); Mean Corpuscular Volume 79.6 fL (80.0-94.0); Nucleated Red Blood Cells % 0 % (-); Platelet Count 178 10^3/uL (130-400); Red Cell Dist. Width 17.7 % (11.5-14.5)
[2025-05-28 17:14] LABS: ALT (SGPT) 11 U/L (0-50); AST (SGOT) 13 U/L (17-59); Albumin 4.0 g/dl (3.5-5.0); Alkaline Phosphatase 85 U/L (38-126); Blood Urea Nitrogen 32 mg/dl (9-20); Calcium 8.8 mg/dl (8.4-10.2); Carbon Dioxide 23 mmol/L (22-30); Chloride 105 mmol/L (98-107); Estimated Creatinine Clearance 29 ml/min; Glucose 134 mg/dl (70-99); Magnesium 2.1 mg/dl (1.6-2.3); Potassium 4.3 mmol/L (3.5-5.1); Sodium 137 mmol/L (135-145); Total Protein 6.6 g/dl (6.3-8.2); eGFR 18.53
--- NOTE | 2025-05-28 17:14 | PTCARENOTE ---
pt received 1 unit of blood. tolerated the infusion. Vss.
[2025-05-28] MEDS: ZETIA 10 MG PO (17:30)
[2025-05-28] MEDS: SYNTHROID 200 MCG PO (21:00)
[2025-05-28 21:08] LABS: Glucose - Point of Care 161 mg/dl (70-99)
[2025-05-29 03:50] VITALS: BP 133/72
[2025-05-29 06:00] VITALS: BMI 36.4
[2025-05-29 07:38] LABS: Glucose - Point of Care 124 mg/dl (70-99)
[2025-05-29 07:44] VITALS: BP 139/80
[2025-05-29] MEDS: VITAMIN C 500 MG PO ×2 (07:55→21:52)
[2025-05-29] MEDS: COREG 12.5 MG PO ×2 (07:55→21:51)
[2025-05-29] MEDS: SODIUM BICARBONATE 650 MG PO ×2 (07:56→21:52)
[2025-05-29] MEDS: FEOSOL 325 MG PO ×2 (07:56→21:51)
[2025-05-29] MEDS: PACERONE 200 MG PO (07:56)
[2025-05-29] MEDS: LASIX 80 MG IV ×2 (07:56→15:35)
[2025-05-29] MEDS: APRESOLINE 50 MG PO ×3 (07:56→21:52)
[2025-05-29] MEDS: NORVASC 10 MG PO (07:57)
[2025-05-29] MEDS: IMDUR (EXTENDED RELEASE) 30 MG PO ×2 (07:57→21:52)
[2025-05-29] MEDS: KCL 40 MEQ PO (07:58)
[2025-05-29 09:27] LABS: Hematocrit 27.2 % (39.0-52.0); Hemoglobin 7.6 g/dL (13.0-18.0); Mean Corp Hgb Conc. 27.9 g/dL (33.0-37.0); Mean Corpuscular Volume 82.4 fL (80.0-94.0); Platelet Count 174 10^3/uL (130-400); Red Cell Dist. Width 18.0 % (11.5-14.5)
[2025-05-29 09:36] LABS: Blood Urea Nitrogen 32 mg/dl (9-20); Calcium 8.7 mg/dl (8.4-10.2); Carbon Dioxide 23 mmol/L (22-30); Chloride 104 mmol/L (98-107); Estimated Creatinine Clearance 29 ml/min; Glucose 141 mg/dl (70-99); Potassium 4.2 mmol/L (3.5-5.1); Sodium 138 mmol/L (135-145); eGFR 18.53
--- NOTE | 2025-05-29 09:46 | W.PN.HOSP.TC ---
Today's Communication/Plan
-
Pending cardiology consult for heart failure and psychiatry consult for decision-making capacity.
Assessment / Plan
Assessment / Plan
Impression:
Mr. Valentin Magaña is a 70 y/o male past medical history of CAD, CHF, CKD, HTN, DM and COPD who presents with abnormal labs. 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 He had blood work yesterday that reveal Hgb 6.1. Patient has a long
standing history of anemia and does that a daily iron supplement but this is notably lower than his baseline of ~7.5. Patient reports some associated shortness of breath and dizziness/lightheadedness this morning. He denies chest pain. He denies
black or bloody stools.
Plan:
#Acute on Chronic Iron Deficiency Anemia
Iron <20 low, TIBC 376, ferritin 24.7, percent saturation too low to calculate
Adamantly refused IV iron, reporting adverse reaction in the past
Increase oral iron supplement to BID(Vitamin C BID to promote absorption)
S/p 2 U pRBCs
Heme-test stool. Patient declined further GI work-up
#Acute on Chronic Heart Failure preserved Ejection fraction
Weight is up 10 lbs from prior admission in Mar 2025
Echo Mar 2025: Normal left ventricular size, and systolic function with EF 50-55%. Stage II diastolic dysfunction. Mild/moderate mitral regurgitation
Continue Lasix 80mg IV BID
FR 48oz (not done on admission)
Daily wts, I/Os
Cardiology consulted: Appreciate recommendations
#Paroxysmal Atrial Fibrillation
Has severe anemia. Due to patient refusing GI workup and inability to give IV Fe, the risk of Eliquis outweighs the benefit at this time.
Discontinued Eliquis.
Continue Carvedilol/Amiodarone
#CAD s/p CABG and Stent: Continue Carvedilol
#Essential HTN: Continue Imdur/Carvedilol/Hydralazine/Amlodipine
#HLD: Continue home Zetia
#DM2: SSI/accuchecks
#CKD4 with Chronic Metabolic Acidosis: continue NaHCO3
#Hypothyroidism: Continue Levoxyl
#Obesity due to excess calories
Dispo: Psychiatry consult for decision-making capacity. Pending stable hemoglobin in AM.
SCDs
Full code
Anticipated Discharge: Within 24 hours
Subjective/Interval History
-
Date of Service: May 29, 2025
No acute events overnight. Patient did not have complaints this morning. He liked to talk about wanting to go home to take care of his with Parkinson's, speaking multiple languages from working [place] the [place] in the [employer], and his weight
being left leg. His thoughts association was tangential. Although he and his left at a SNF, he states that he needs to take care of her, states that the SNF does not take care of her.
Objective Data
-
Labs:
Laboratory Results
05/29/25
08:56
WBC 8.2
Hgb 7.6 L
Hct 27.2 L
Plt Count 174
Sodium 138
Potassium 4.2
Chloride 104
Carbon Dioxide 23
BUN 32 H
Creatinine 3.4 H
Glucose 141 H
Calcium 8.7
Vital Signs:
Vital Signs
Temp Pulse Resp BP Pulse Ox
98 F 71 16 139/80 95
05/29/25 07:44 05/29/25 07:57 05/29/25 07:44 05/29/25 07:57 05/29/25 07:44
I&O
05/28/25 05/29/25 05/30/25
06:59 06:59 06:59
Intake Total 250 / 250 1860 / 1860
Output Total 2099 / 20995 / 2275
Balance -1850 / -1850 -415 / -415
Review of Systems
-
History Source: Patient
All other systems: Reviewed and negative
Physical Exam
-
General: Well Developed, Well Nourished, No Apparent Distress and Conversant
HEENT: Normocephalic, Atraumatic, Anicteric, No Ptosis, Nose Appears Normal and Ears Appear Normal; Negative Oxygen
Respiratory: Clear to Auscultation
Cardiac: Regular Rhythm and S1/S2
GI: Soft, Nontender, Nondistended and Normal Bowel Sounds
Musculoskeletal: No Clubbing, No Cyanosis, Edema, Right Lower Extrem and Edema, Left Lower Extrem
Skin: Warm and Dry
Neuro: Awake and Alert
Psych: Calm
--- NOTE | 2025-05-29 10:35 | W.PN.UPDATE ---
Update Note
Progress Note Update
I saw and evaluated the patient. I reviewed the resident�s note and agree with findings and plan as documented in the resident�s note.
Denies CP/SOB/abd pain. No new complaints.
Gen: NAD, AAOx3.
Eyes: EOMI, PERRLA, no scleral icterus.
Neck: supple.
CV: RRR, +S1/S2, no m/r/g.
Resp: CTAB, no rales, wheezes, or rhonchi.
Abd: +BS, soft, NT, ND
Skin: No rashes. 2+ B/L LE edema
Neuro: CN 2-12 intact, non-focal.
Psych: Normal mood and affect.
CXR: Stable mild CHF with small bilateral pleural effusions with associated atelectasis and/or pneumonia.
Acute on Chronic Iron Deficiency Anemia:
-Fe < 20
-Patient adamantly refuses IV iron reporting adverse reaction in the past
-Increase oral iron supplement to twice a day (Vitamin C BID to promote absorption)
-s/p 2U pRBCs
-Heme-test stools noting that patient declines GI work-up
Acute on Chronic HFpEF:
-Weight is up 10lbs from prior admission in Mar 2025
-Echo Mar 2025: Normal left ventricular size, and systolic function with EF 50-55%. Stage II diastolic dysfunction. Mild/moderate mitral regurgitation
-Continue Lasix 80mg IV BID
-cont FR 48oz
-daily wts, I/Os
-c/s cards
PAF:
-with severe anemia, refusing GI w/u, inability to give IV Fe the risk of Eliquis outweighs the benefit at this time. Eliquis has been stopped.
-cont Coreg/Amio
Other problems:
CAD s/p CABG and Stent: cont Coreg
Essential HTN: cont Imdur/Coreg/Hydralazine/Norvasc
HLD: Cont home Zetia
DM2: SSI/accuchecks
CKD4 with Chronic Metabolic Acidosis: cont NaHCO3
Hypothyroidism: Cont Levoxyl
Obesity due to excess calories
I had a lengthy discussion with the patient regarding his hospital course, laboratory and diagnostic data, and treatment plan with the patient's RN present at bedside.
FULL/SCDs
Dispo: c/s psych for decision making capacity. Cards to see. Check Hb in AM.
Total time spent on today's encounter was 52 minutes which included time spent in counseling the patient/family regarding diagnosis and treatment plan as listed above, goals of care, and symptom management. Case was discussed with nursing staff,
specialists, and care coordinators/case management. All labs and imaging personally reviewed by me. Remainder the time spent in detailed review of previous records, lab data, imaging, and other medical provider documentation.
[2025-05-29 11:07] LABS: Glucose - Point of Care 159 mg/dl (70-99)
[2025-05-29 11:53] VITALS: BP 125/74
--- NOTE | 2025-05-29 12:41 | W.PN.UPDATE ---
Update Note
Progress Note Update
Psychiatric evaluation dictated.
Patient was reasonably friedly and cooperative. He was concerned about privacy and was seen outside of his room as there were visitors with his roommate. He is refusing GI workup including colonoscopy in the hospital as well as iron infusion which
was recommended to treat his anemia.
He understands that if he is untreated he may have serios consequences or even and is willing to accept that risk. He feels he can get OP appointment with doctors of his choice. He does have basic understanding of his numerous medical conditions
and medications he takes.
There were no significant cognitive deficits other than mild loss of immediate recall, but he was able to recall 4 numbers out of 5.
I feel he has capacity to make decisions regarding his care.
--- NOTE | 2025-05-29 13:23 | CM ---
internet and e business project manager reviewed patient's chart and physicians attempting to manage patient, psych was consulted for capacity, plan is to return to [facility] when stable.
[facility]
Report [phone]

Nursing die engraving supervisor [phone]
[facility] in admissions [phone]
[2025-05-29 15:35] VITALS: BP 129/76
--- NOTE | 2025-05-29 16:00 | CON.CAR ---
Consultation
Consultation Request
Date/Time Consultation Requested: 05/29/2025 at 8:24 AM
Date/Time Consultation Performed: 05/29/2025 at 3:00 PM
Requesting Provider: Juancho Villalobos MD
Performing Provider: Mark Perez MD
Reason for Consultation: concern for CHF
Medical History
-
Chief Complaint: concern for CHF
History of Present Illness:
70-year-old man (patient of Dr. Gray) with heart failure with recovered ejection fraction (50-55%) due to ischemic cardiomyopathy s/p ICD, CAD with prior CABG and stenting, paroxysmal atrial fibrillation, CKD and anemia who presented with
symptomatic anemia requiring transfusion. Cardiology is consulted due to concern for CHF. Patient reported shortness of breath and lightheadedness on admission. Admission hemoglobin was 6.1 and he required 2 units PRBCs. He is declining further
workup for GI bleeding. He also reported a 10 pound weight gain over the past month but standing weights are stable compared to last admission. He tells me that his lower extremity edema and dyspnea are at baseline.
Past Medical History
Past Medical History: Arrhythmias, CAD, CHF, HTN, Hypercholesterolemia and Renal Failure
Past Surgical History: Other (CABG)
Social History
Tobacco: Non-Smoker
Living: Correction
Family History
Family History: Reviewed & Not Pertinent
Allergies / Home Medications
Allergy/AdvReac Type Severity Reaction Status Date / Time
cinnamon Allergy Anaphylaxis Verified 05/27/25 11:34
�Medication �Instructions �Recorded �Confirmed �Type
acetaminophen 325 mg tablet 650 mg PO Q4HPRN PRN mild 03/24/24 05/27/25 History
(Tylenol) pain/fever
amiodarone 200 mg tablet 200 mg PO DAILY Arrhythmia 03/24/24 05/27/25 History
apixaban 5 mg tablet (Eliquis) 5 mg PO BID Blood Clot 03/24/24 05/27/25 History
Prevention/Tx
ezetimibe 10 mg tablet (Zetia) 10 mg PO QPM High Cholesterol 03/24/24 05/27/25 History
isosorbide mononitrate 30 mg 30 mg PO Q12H Heart 03/24/24 05/27/25 History
tablet,extended release 24 hr Disease/Condition
sodium bicarbonate 650 mg tablet 650 mg PO BID Supplement 03/24/24 05/27/25 History
carvedilol 12.5 mg tablet 12.5 mg PO BID Heart Failure 1 04/01/24 05/27/25 Rx
month #60 tabs
hydralazine 50 mg tablet 50 mg PO TID Heart Failure 1 month 04/01/24 05/27/25 Rx
#90 tabs
ascorbic acid (vitamin C) 500 mg 500 mg PO MOWEFR@0830,1830 09/26/24 05/27/25 History
tablet Supplement
bisacodyl 10 mg rectal suppository 10 mg NV [id number] PRN no BM and 09/26/24 05/27/25 History
lactulose is ineffective
bumetanide 2 mg tablet 2 mg PO DAILYPRN PRN gain of 2 09/26/24 05/27/25 History
pounds in 2 days or 5 pounds in 1
week
ferrous gluconate 324 mg (38 mg 324 mg PO DAILY Supplement 09/26/24 05/27/25 History
iron) tablet
furosemide 80 mg tablet 80 mg PO BID Fluid 09/26/24 05/27/25 History
Retention/Swelling
lactulose 10 gram/15 mL oral 20 g PO HSPRN PRN constipation 09/26/24 05/27/25 History
solution
lidocaine 4 % topical cream 1 applic topical QPM bilateral 09/26/24 05/27/25 History
upper legs
nitroglycerin 0.4 mg sublingual 0.4 mg sublingual [id number] PRN 09/26/24 05/27/25 History
tablet chest pain/angina
potassium chloride 10 mEq 40 meq PO DAILY Electrolyte 09/26/24 05/27/25 History
capsule,extended release Repletion
ipratropium 0.5 mg-albuterol 3 mg 3 ml inhalation R Q4HPRN PRN sob 03/30/25 05/27/25 History
(2.5 mg base)/3 mL nebulization
soln
levothyroxine 200 mcg tablet 200 mcg PO HS Thyroid 03/30/25 05/27/25 History
(Synthroid)
loratadine 10 mg tablet 10 mg PO Q48H@1830 Allergies 03/30/25 05/27/25 History
sennosides 8.6 mg-docusate sodium 2 tab-cap PO DAILYPRN PRN 03/30/25 05/27/25 History
50 mg tablet (Senna-S) constipation
amlodipine 10 mg tablet (Norvasc) 10 mg PO DAILY Blood Pressure 04/22/25 05/27/25 History
dextromethorphan-guaifenesin 10 10 ml PO Q4HPRN PRN cough 05/27/25 05/27/25 History
mg-100 mg/5 mL oral liquid
(Diabetic Tussin DM)
Review of Systems
-
All other systems: Negative unless noted
Physical Exam
Vital Signs
Temp Pulse Resp BP Pulse Ox
98.2 F 72 18 129/76 96
05/29/25 15:35 05/29/25 15:35 05/29/25 15:35 05/29/25 15:35 05/29/25 15:35
Lab Results
05/29/25 08:56
05/29/25 08:56
Physical Exam
General: Well Developed, Well Nourished and Other (Pale appearing)
Respiratory: Clear and Non Labored Respirations
Cardiac: S1/S2, Regular Rhythm and Peripheral Edema; Negative Murmur
Neuro: AO x 3
Impression / Plan
-
70-year-old man (patient of Dr. Gray) with heart failure with recovered ejection fraction (50-55%) due to ischemic cardiomyopathy s/p ICD, CAD with prior CABG and stenting, paroxysmal atrial fibrillation, CKD and anemia who presented with
symptomatic anemia requiring transfusion. Cardiology is consulted due to concern for CHF.
Heart failure with recovered ejection fraction
- Tough volume exam due to body habitus but today's standing weight is stable from discharge in March, proBNP lower than prior, and he feels at baseline.
- TTE 03/31/2025: LVEF 50-55%, stage II DD, mild/mod MR, mod TR, PASP 47 mmHg
- Switch back to home p.o. Bumex 4 mg twice daily
- Continue GDMT with carvedilol, hydralazine, and Imdur given CKD
Paroxysmal atrial fibrillation
- He is in a ventricular paced rhythm here
- Continue carvedilol and amiodarone
- Continue to hold Eliquis with anemia and refusal of GI workup
Acute on chronic symptomatic anemia
- Hemoglobin 6.1 on admission. Required 2 units PRBCs. Declined GI workup.
- Management per primary team
Coronary artery disease with prior CABG and stenting
- If hemoglobin is stable tomorrow, would start aspirin 81 mg daily since we are stopping anticoagulation
- Continue Zetia. Not on statin - readdress this outpatient
Data Reviewed
-
EKG: Tracing Personally Visualized and interpreted and Discussed with Patient
Radiology: Image Personally Visualized and interpreted and Discussed with Patient
Medical Tests (Nuc Med, Echo etc): Report Reviewed by me, Discussed with Physician and Discussed with Patient
Labs: Labs Reviewed by me, Discussed with Patient and Discussed with Family
[2025-05-29 16:33] LABS: Glucose - Point of Care 161 mg/dl (70-99)
[2025-05-29] MEDS: ZETIA 10 MG PO (17:23)
[2025-05-29 19:57] VITALS: BP 136/69
[2025-05-29 21:31] LABS: Glucose - Point of Care 159 mg/dl (70-99)
[2025-05-29] MEDS: SYNTHROID 200 MCG PO (21:52)
[2025-05-29 23:08] VITALS: BP 136/70
[2025-05-30 03:15] VITALS: BP 138/85
[2025-05-30 05:59] LABS: Hematocrit 28.1 % (39.0-52.0); Hemoglobin 7.8 g/dL (13.0-18.0); Mean Corp Hgb Conc. 27.8 g/dL (33.0-37.0); Mean Corpuscular Volume 83.1 fL (80.0-94.0); Platelet Count 167 10^3/uL (130-400); Red Cell Dist. Width 18.4 % (11.5-14.5)
[2025-05-30 06:21] LABS: Blood Urea Nitrogen 36 mg/dl (9-20); Calcium 8.5 mg/dl (8.4-10.2); Carbon Dioxide 24 mmol/L (22-30); Chloride 106 mmol/L (98-107); Estimated Creatinine Clearance 28 ml/min; Glucose 103 mg/dl (70-99); Potassium 4.2 mmol/L (3.5-5.1); Sodium 139 mmol/L (135-145); eGFR 17.89
[2025-05-30 07:14] LABS: Glucose - Point of Care 141 mg/dl (70-99)
[2025-05-30 07:25] VITALS: BP 138/79
--- NOTE | 2025-05-30 09:08 | W.PN.UPDATE ---
Update Note
Progress Note Update
I saw and evaluated the patient. I reviewed the resident�s note and agree with findings and plan as documented in the resident�s note.
No new complaints.
Gen: NAD, AAOx3.
Eyes: EOMI, PERRLA, no scleral icterus.
Neck: supple.
CV: remains RRR, +S1/S2, no m/r/g.
Resp: CTAB anteriorly, no rales, wheezes, or rhonchi.
Abd: remains +BS, soft, NT, ND
Skin: No rashes. 2+ B/L LE edema
Neuro: CN 2-12 intact, non-focal.
Psych: Normal mood and affect.
CXR: Stable mild CHF with small bilateral pleural effusions with associated atelectasis and/or pneumonia.
Acute on Chronic Iron Deficiency Anemia:
-Fe < 20
-Patient adamantly refuses IV iron reporting adverse reaction in the past
-Oral iron supplement increased to BID (Vitamin C BID to promote absorption)
-s/p 2U pRBCs
-Heme-test stools noting that patient declines GI work-up
Acute on Chronic HFpEF:
-Weight is up 10lbs from prior admission in Mar 2025
-Echo Mar 2025: Normal left ventricular size, and systolic function with EF 50-55%. Stage II diastolic dysfunction. Mild/moderate mitral regurgitation
-was on IV Lasix, now transitioned to PO Bumex
-cont FR 48oz
-daily wts, I/Os
-cards saw in c/s, discussed with Dr. Perez
PAF:
-with severe anemia, refusing GI w/u, inability to give IV Fe the risk of Eliquis outweighs the benefit at this time. Eliquis has been stopped.
-cont Coreg/Amio/ASA
Other problems:
CAD s/p CABG and Stent: cont Coreg
Essential HTN: cont Imdur/Coreg/Hydralazine/Norvasc
HLD: Cont home Zetia
DM2: SSI/accuchecks
CKD4 with Chronic Metabolic Acidosis: cont NaHCO3
Hypothyroidism: Cont Levoxyl
Obesity due to excess calories
FULL/SCDs
Medically cleared for d/c with close outpt f/u.
Total time spent on d/c = 45 min. This included today's physical exam, progress note, review of laboratory and diagnostic data, preparation of discharge documents and prescriptions, and discussions about the pt's hospital course and discharge plan
with the patient and other medical policy specialist involved in the patient's care.
[2025-05-30] MEDS: BUMEX 4 MG PO (09:35)
[2025-05-30] MEDS: PACERONE 200 MG PO (09:35)
[2025-05-30] MEDS: KCL 40 MEQ PO (09:35)
[2025-05-30] MEDS: APRESOLINE 50 MG PO (09:35)
[2025-05-30] MEDS: IMDUR (EXTENDED RELEASE) 30 MG PO (09:35)
[2025-05-30] MEDS: ASPIR LOW (ENTERIC COATED) 81 MG PO (09:36)
[2025-05-30] MEDS: FEOSOL 325 MG PO (09:36)
[2025-05-30] MEDS: VITAMIN C 500 MG PO (09:36)
[2025-05-30] MEDS: NORVASC 10 MG PO (09:36)
[2025-05-30] MEDS: COREG 12.5 MG PO (09:36)
[2025-05-30] MEDS: SODIUM BICARBONATE 650 MG PO (09:36)
--- NOTE | 2025-05-30 10:11 | CM ---
Pt is cleared for discharge back to [facility] today. Wheelchair Van is not available, so pt will go by stretcher as a 'wheelchair van via stretcher' per Acute Care.
[facility]
Report [phone]

Nursing supervisor harvesting [phone]
Asael in admissions [phone]
[2025-05-30 11:07] VITALS: BP 133/72
[2025-05-30 11:44] LABS: Glucose - Point of Care 218 mg/dl (70-99)
--- NOTE | 2025-05-30 12:13 | W.PN.HOSP.TC ---
Today's Communication/Plan
-
Started aspirin 81 mg p.o. daily for A-fib and coronary disease, since Eliquis was stopped and Hb was stable at 7.8 (up from 7.6 yesterday).
Assessment / Plan
Assessment / Plan
Impression:
Mr. Valentin Magaña is a 70 y/o male past medical history of CAD, CHF, CKD, HTN, DM and COPD who presents with abnormal labs. Patient is a prison resident at [facility]. He had blood work yesterday that reveal Hgb 6.1. Patient has a long
standing history of anemia and does that a daily iron supplement but this is notably lower than his baseline of ~7.5. Patient reports some associated shortness of breath and dizziness/lightheadedness this morning. He denies chest pain. He denies
black or bloody stools.
Plan:
#Acute on Chronic Iron Deficiency Anemia
Iron <20 low, TIBC 376, ferritin 24.7, percent saturation too low to calculate
Adamantly refused IV iron, reporting adverse reaction in the past
Increase oral iron supplement to BID(Vitamin C BID to promote absorption)
S/p 2 U pRBCs
Heme-test stool. Patient declined further GI work-up
#Acute on Chronic Heart Failure preserved Ejection fraction
Weight is up 10 lbs from prior admission in Mar 2025
Echo Mar 2025: Normal left ventricular size, and systolic function with EF 50-55%. Stage II diastolic dysfunction. Mild/moderate mitral regurgitation
Continue Lasix 80mg IV BID
FR 48oz (not done on admission)
Daily wts, I/Os
Cardiology consulted
#Paroxysmal Atrial Fibrillation
Has severe anemia. Due to patient refusing GI workup and inability to give IV Fe, the risk of Eliquis outweighs the benefit at this time.
Discontinued Eliquis. Started aspirin 81 mg p.o. daily
Continue Carvedilol/Amiodarone
#CAD s/p CABG and Stent: Continue Carvedilol
#Essential HTN: Continue Imdur/Carvedilol/Hydralazine/Amlodipine
#HLD: Continue home Zetia
#DM2: SSI/accuchecks
#CKD4 with Chronic Metabolic Acidosis: continue NaHCO3
#Hypothyroidism: Continue Levoxyl
#Obesity due to excess calories
Dispo: Psychiatry consult for decision-making capacity. Pending stable hemoglobin in AM.
SCDs
Full code
Anticipated Discharge: Today
Subjective/Interval History
-
Date of Service: May 30, 2025
No acute events overnight. Patient had no complaints this morning.
Objective Data
-
Labs:
Laboratory Results
05/30/25
05:47
WBC 6.6
Hgb 7.8 L
Hct 28.1 L
Plt Count 167
Sodium 139
Potassium 4.2
Chloride 106
Carbon Dioxide 24
BUN 36 H
Creatinine 3.5 H
Glucose 103 H
Calcium 8.5
Vital Signs:
Vital Signs
Temp Pulse Resp BP Pulse Ox
97.7 F 72 18 133/72 96
05/30/25 11:07 05/30/25 11:07 05/30/25 11:07 05/30/25 11:07 05/30/25 11:07
I&O
05/29/25 05/30/25 05/31/25
06:59 06:59 06:59
Intake Total 1860 / 1860 1040 / 1040
Output Total 2275 / 2275 1900 / 1900
Balance -415 / -415 -860 / -860
Review of Systems
-
History Source: Patient
All other systems: Reviewed and negative
Physical Exam
-
General: Well Developed, Well Nourished, No Apparent Distress and Conversant
HEENT: Normocephalic, Atraumatic, Moist Mucous Membranes, Anicteric, No Ptosis, Nose Appears Normal and Ears Appear Normal
Respiratory: Clear to Auscultation
Cardiac: Regular Rhythm and S1/S2
GI: Soft, Nontender, Nondistended and Normal Bowel Sounds
Musculoskeletal: No Clubbing, No Cyanosis, Edema, Right Lower Extrem and Edema, Left Lower Extrem
Skin: Warm and Dry
Neuro: Awake and Alert
Psych: Calm
--- NOTE | 2025-05-30 12:17 | W.DCSUMMARY ---
Discharge Summary
Discharge Data
Date of Admission: 05/27/25
Date of Discharge: 05/30/25
-
Pending Results: No
Hospital Course
Discharging Physician : Dr. Villalobos and Dr. Hernández
Disposition : SNF
Primary care physician : Unknown
Principal Discharge diagnosis : Severe acute on chronic anemia, acute on chronic HFpEF
Chronic Discharge diagnosis : HFpEF, paroxysmal A-fib, coronary artery disease, hyperlipidemia, hypertension, hypothyroidism, constipation
Hospital Course :
Problem #1: Acute on chronic iron deficiency anemia
His hemoglobin was 6.1 on admission. He received a unit of red blood cells and his hemoglobin incremented to 6.8. He then received a another unit of red blood cells, and his hemoglobin incremented to 8.1. He was monitored for 2 more days, and his
hemoglobin remained stable.
The patient refused a GI workup. He also refused IV iron, reporting an unclear adverse reaction in the past. His oral iron supplement was increased to twice daily, including increasing vitamin C to twice daily to increase absorption.
Problem #2: Acute on chronic HFpEF
His weight was 10 pounds heavier than his last admission in March. He has heart failure with recovered ejection fraction of 50 to 55%. He received Lasix 80 mg IV twice daily, and was discharged on oral Lasix 80 mg twice daily. He was placed
on a fluid restriction of 40 ounces. Cardiology recommended continuing GDMT with carvedilol, hydralazine, and Imdur given his CKD. Bumex was increased back to his home dose of 4 mg twice daily.
Problem #3: Paroxysmal A-fib
Eliquis was stopped, due to the patient having severe anemia, refusing GI workup, and refusing IV iron due to a previous unclear adverse reaction. It was explained to the patient that the bleeding risk of Eliquis outweighs the benefit for him.
Aspirin 81 mg daily was started after hemoglobin remained stable, since Eliquis was stopped and he has significant coronary disease history.
He is rate and rhythm controlled on carvedilol, amiodarone, and a pacemaker.
Important imaging findings :
Chest x-ray 06/13/2025
Stable mild CHF with small bilateral pleural effusions with associated atelectasis and/or pneumonia.
Procedure findings : None
Discharge Plan
-
Patient Disposition: Halfway/SNF
Discharge Diagnosis/Procedures: Severe acute on chronic iron deficiency anemia
Acute on chronic HFpEF
Paroxysmal A-fib
Coronary artery disease
Hypertension
Hyperlipidemia
Diabetes
Chronic kidney disease
Hypothyroidism
Condition: Fair
Diet: Low Cholesterol, Low Sodium and Restrict fluids to 48 oz
Activity: With assistance
Driving Restrictions: Not until seen by your Dr
Bathing Restrictions: After seen by .
Blood Work: CBC and BMP in 1 week, script from PCP
Activity Restrictions/Additional Instructions:
Wound Care Instructions Left Leg Blister- Clean with normal saline and apply adaptic and clean bandage. Change daily and PRN drainage.
Follow up at wound care center call for an appointment.
Instructions: *PCP/Other Traffic Sign Supervisor Heart Failure Instructions
Referrals:
Mark Perez MD [Active, Cardiology] - in one to two weeks
Referral Note: A-fib on aspirin, heart failure, anemia
UNKNOWN - PT DOES,NOT KNOW [Family Provider]
Additional Discharge Medication Instructions: Since you had severe anemia and the source of bleeding was not identified (since you are not interested in a gastrointestinal workup), please stop taking Eliquis for A-fib. Please take aspirin 81 mg
daily instead for A-fib and coronary artery disease.
Prescriptions:
New
bumetanide 1 mg Tablet
4 mg PO BID AT 0800,1600 Qty: 240 0RF
aspirin 81 mg Tablet,Delayed Release (Dr/Ec)
81 mg PO DAILY Qty: 30 0RF
ascorbic acid (vitamin C) [Vitamin C] 500 mg Tablet
500 mg PO BID Qty: 0 0RF
ferrous sulfate [FeroSul] 325 mg (65 mg iron) Tablet
325 mg PO BID Qty: 60 0RF
Continued
acetaminophen [Tylenol] 325 mg Tablet
650 mg PO Q4HPRN PRN (Reason: mild pain/fever)
amiodarone 200 mg Tablet
200 mg PO DAILY
isosorbide mononitrate 30 mg Tablet Extended Release 24 Hr
30 mg PO Q12H
sodium bicarbonate 650 mg Tablet
650 mg PO BID
ezetimibe [Zetia] 10 mg Tablet
10 mg PO QPM
hydralazine 50 mg Tablet
50 mg PO TID 30 Days Qty: 90 0RF
carvedilol 12.5 mg Tablet
12.5 mg PO BID 30 Days Qty: 60 0RF
potassium chloride 10 mEq Capsule, Extended Release
40 meq PO DAILY
ascorbic acid (vitamin C) 500 mg Tablet
500 mg PO MOWEFR@
bisacodyl 10 mg Suppository
10 mg DE [id number] PRN (Reason: no BM and lactulose is ineffective)
nitroglycerin 0.4 mg Tablet, Sublingual
0.4 mg SUBLINGUAL [id number] PRN (Reason: chest pain/angina)
lactulose 10 gram/15 mL Solution
20 g PO HSPRN PRN (Reason: constipation)
lidocaine 4 % Cream
1 applic TOPICAL QPM
ipratropium-albuterol 0.5 mg-3 mg(2.5 mg base)/3 mL Solution For Nebulization
3 ml INHALATION R Q4HPRN PRN (Reason: sob)
sennosides-docusate sodium [Senna-S] 8.6-50 mg Tablet
2 tab-cap PO DAILYPRN PRN (Reason: constipation)
levothyroxine [Synthroid] 200 mcg Tablet
200 mcg PO HS
loratadine 10 mg Tablet
10 mg PO Q48H@1829
amlodipine [Norvasc] 10 mg Tablet
10 mg PO DAILY
dextromethorphan-guaifenesin [Diabetic Tussin DM] 10-100 mg/5 mL Liquid
10 ml PO Q4HPRN PRN (Reason: cough)
Discontinued
Eliquis 5 mg Tablet
5 mg PO BID
furosemide 80 mg Tablet
80 mg PO BID
ferrous gluconate 324 mg (38 mg iron) Tablet
324 mg PO DAILY
bumetanide 2 mg tablet
2 mg PO DAILYPRN PRN (Reason: gain of 2 pounds in 2 days or 5 pounds in 1 week)
Discharge Orders:
Discharge Patient (As Directed); Ordered 05/30/25
Ordered By: Juancho Villalobos
Discharge Date and Time
Print Language: PORTUGUESE
== END 2025-05-30 14:32 | DRG 291 ==
LOC: 4 EAST ACU 14:25
PROVIDERS: Emergency Medicine; Physician Assistant Medical; ADMITTING PHYSICIAN Hospitalist; ATTENDING PHYSICIAN Internal Medicine; CONSULT PHYSICIAN Psychiatry & Neurology Psychiatry; CONSULT PHYSICIAN Student in an Organized Health Care Education/Training Program; EMERGENCY PHYSICIAN Student in an Organized Health Care Education/Training Program
PROC: 30233N1 Transfusion of Nonautologous Red Blood Cells into Peripheral Vein, Percutaneous Approach (ICD-10-PCS; 2025-05-27)
DX: I13.0 Hypertensive heart and chronic kidney disease with heart failure and stage 1 through stage 4 chronic kidney disease, or unspecified chronic kidney disease (principal); I50.33 Acute on chronic diastolic (congestive) heart failure; E87.22 Chronic metabolic acidosis; N18.4 Chronic kidney disease, stage 4 (severe); J98.11 Atelectasis; D50.9 Iron deficiency anemia, unspecified; E11.22 Type 2 diabetes mellitus with diabetic chronic kidney disease; E78.00 Pure hypercholesterolemia, unspecified; J44.9 Chronic obstructive pulmonary disease, unspecified; E03.9 Hypothyroidism, unspecified; E66.09 Other obesity due to excess calories; I25.10 Atherosclerotic heart disease of native coronary artery without angina pectoris; I34.0 Nonrheumatic mitral (valve) insufficiency; I48.0 Paroxysmal atrial fibrillation; I25.5 Ischemic cardiomyopathy; F43.10 Post-traumatic stress disorder, unspecified; Z66 Do not resuscitate; Z79.01 Long term (current) use of anticoagulants; Z79.890 Hormone replacement therapy; Z95.1 Presence of aortocoronary bypass graft; Z79.899 Other long term (current) drug therapy; Z95.5 Presence of coronary angioplasty implant and graft; Z91.018 Allergy to other foods; Z68.36 Body mass index [BMI] 36.0-36.9, adult; Z95.810 Presence of automatic (implantable) cardiac defibrillator
CPT/HCPCS: 36415; 36430; 71046; 80048; 80053; 82728; 82962; 83036; 83540; 83550; 83735; 83880; 85025; 85027; 85610; 85730; 86850; 86900; 86901; 86920; 87070; 93005; 99285; P9016

== ENCOUNTER → 2025-06-03 09:40 | Outpatient (REF) | payer OTHER, MEDICARE, BC, SELFPAY | LOC: OLABN 09:40 | PROVIDERS: ATTENDING PHYSICIAN Internal Medicine Geriatric Medicine | DX: D64.9 Anemia, unspecified (principal) | CPT/HCPCS: 82272 ==

== ENCOUNTER → 2025-06-07 17:48 | Outpatient (REF) | payer OTHER, MEDICARE, BC, SELFPAY ==
[2025-06-07 18:02] LABS: Hematocrit 27.5 % (39.0-52.0); Hemoglobin 7.8 g/dL (13.0-18.0); Mean Corp Hgb Conc. 28.4 g/dL (33.0-37.0); Mean Corpuscular Volume 79.9 fL (80.0-94.0); Nucleated Red Blood Cells % 0 % (-); Platelet Count 192 10^3/uL (130-400); Red Cell Dist. Width 20.0 % (11.5-14.5)
[2025-06-07 18:08] LABS: Blood Urea Nitrogen 39 mg/dl (9-20); Calcium 8.7 mg/dl (8.4-10.2); Carbon Dioxide 26 mmol/L (22-30); Chloride 102 mmol/L (98-107); Glucose 102 mg/dl (70-99); Potassium 4.1 mmol/L (3.5-5.1); Sodium 134 mmol/L (135-145); eGFR 20.70
[2025-06-07 19:16] LABS: Anisocytosis 2+; Hypochromasia 2+; Macrocytosis 3+; Normal RBC Morphology No; Ovalocytes Occasional; Polychromasia Occasional; Stomatocytes Occasional; Tear Drop Red Blood Cells Occasional
== END ==
LOC: OLABN 17:48
PROVIDERS: ATTENDING PHYSICIAN Internal Medicine Geriatric Medicine
DX: N18.30 Chronic kidney disease, stage 3 unspecified (principal); N18.4 Chronic kidney disease, stage 4 (severe)
CPT/HCPCS: 36415; 80048; 85025

== ENCOUNTER → 2025-06-23 15:49 | Outpatient (REF) | payer MEDICARE, BC, SELFPAY ==
[2025-06-23 16:43] LABS: Hematocrit 31.4 % (39.0-52.0); Hemoglobin 9.2 g/dL (13.0-18.0); Mean Corp Hgb Conc. 29.3 g/dL (33.0-37.0); Mean Corpuscular Volume 82.6 fL (80.0-94.0); Nucleated Red Blood Cells % 0 % (-); Platelet Count 201 10^3/uL (130-400); Red Cell Dist. Width 22.3 % (11.5-14.5)
[2025-06-23 16:52] LABS: Blood Urea Nitrogen 27 mg/dl (9-20); Calcium 8.9 mg/dl (8.4-10.2); Carbon Dioxide 21 mmol/L (22-30); Chloride 105 mmol/L (98-107); Glucose 135 mg/dl (70-99); Iron 166 ug/dl (49-181); Potassium 3.7 mmol/L (3.5-5.1); Sodium 135 mmol/L (135-145); eGFR 21.53
[2025-06-23 17:02] LABS: Total Iron Binding Capacity 347 ug/dl (261-462)
[2025-06-23 17:26] LABS: Ferritin 46.0 ng/ml (17.9-464.0)
[2025-06-23 17:40] LABS: Anisocytosis 2+; Normal RBC Morphology No; Ovalocytes 1+; Poikilocytosis 1+; Target Cells 1+
== END ==
LOC: OLABN 15:49
PROVIDERS: ATTENDING PHYSICIAN Internal Medicine Geriatric Medicine
DX: E11.21 Type 2 diabetes mellitus with diabetic nephropathy (principal); N18.30 Chronic kidney disease, stage 3 unspecified
CPT/HCPCS: 36415; 80048; 82728; 83540; 83550; 85025